=== PATIENT | male | born 1955 | race Caucasian/White ===

== ENCOUNTER 2022-07-02 20:30 | Emergency (ER) | payer MEDICARE, BC ==
--- NOTE | 2022-07-02 20:43 | ED ---
General Adult HPI - General Stated complaint: Fall, Right Leg Injury Time Seen by Provider: 07/02/22 20:36 - History of Present Illness Initial comments: Dictation was produced using [employer] dictation software. please excuse any grammatical, word or spelling errors. Chief Complaint: 67-year-old male presents emergency department after fall from ladder History of Present Illness: 67-year-old male presents to emergency department after he fell from a ladder. Patient was in the attic above his garage. He is climbing down and he missed the ladder. He states he fell to the ground. Denies any loss of consciousness. Reports hitting his right jaw and neck on something. Patient was able to stand up when he felt something wet on his right lower extremity. He lifted his leg and said there was a lot of blood. EMS was called. She was brought to the emergency department. His complaint of some mild back pain. The ROS documented in this emergency department record has been reviewed and confirmed by me. Those systems with pertinent positive or negative responses have been documented in the HPI. All other systems are other negative and/or noncontributory. PHYSICAL EXAM: General Impression: Alert and oriented x3, not in acute distress HEENT: Normocephalic atraumatic, abrasion to the right anterior neck, extra- ocular movements intact, pupils equal and reactive to light bilaterally, mucous membranes moist. Cardiovascular: Heart regular rate and rhythm Chest: Able to complete full sentences, no retractions, no tachypnea Abdomen: abdomen soft, non-tender, non-distended, no organomegaly Musculoskeletal: Pulses present and equal in all extremities, no peripheral edema Motor: no focal deficits noted Neurological: CN II-XII grossly intact, no focal motor or sensory deficits noted Skin: Avulsion laceration to the right inferior knee Psych: Normal affect and mood ED course: 67-year-old male presents to emergency department after fall from ladder. Vital signs upon arrival are within acceptable limits. Laboratory evaluation obtained. CBC, coag panel, all within acceptable limits per chest x-ray and pelvis x-ray unremarkable. Computed tomography scan of the head and C-spine obtained showing no acute processes. Computed tomography scan of the chest abdomen pelvis shows no evidence of acute traumatic injury. The laceration was repaired at bedside. This is a high risk wound. He is given a dose of Ancef. Patient will need antibiotics. Patient given follow-up with orthopedic surgery for follow-up of wound. EKG interpretation: Ventricular rate 50, sinus bradycardia,. Interval to 32, ca re is 95, QTc 444. No OH prolongation, no QTC prolongation, no ST or T-wave changes noted. Overall, this EKG is unremarkable - Related Data Previous Rx's Medication Instructions Recorded Cephalexin [Keflex] 500 mg PO QID 7 Days #28 cap 07/02/22 Allergies Allergy/AdvReac Type Severity Reaction Status Date / Time No Known Allergies Allergy Verified 07/02/22 21:11 Review of Systems ROS Statement: Those systems with pertinent positive or pertinent negative responses have been documented in the HPI. ROS Other: All systems not noted in ROS Statement are negative. Course Vital Signs 07/02/22 20:37 Temperature 98.2 F Pulse Rate 61 Respiratory 16 Rate Blood Pressure 115/84 O2 Sat by Pulse 97 Oximetry Procedures - Laceration Laceration #1 Consent Obtained: verbal consent Indication: laceration Site: lower extremity Description: avulsion Depth: simple, single layer Anesthetic Used: lidocaine 1%, with epi Anesthesia Technique: local infiltration Pre-repair: wound explored, irrigated extensively, deep structures intact Size of Sutures: 3-0 Number of Sutures: 11 Technique: simple, interrupted Patient Tolerated Procedure: well Additional Comments: right knee Medical Decision Making - Lab Data Result diagrams: 07/02/22 21:07 07/02/22 21:07 Lab Results 07/02/22 07/02/22 07/02/22 Range/Units 21:07 21:07 21:07 WBC 10.7 H (3.8-10.6) k/uL RBC 4.15 L (4.30-5.90) m/uL Hgb 14.3 (13.0-17.5) gm/dL Hct 44.1 (39.0-53.0) % MCV 106.3 H (80.0-100.0) fL MCH 34.4 (25.0-35.0) pg MCHC 32.4 (31.0-37.0) g/dL RDW 12.9 (11.5-15.5) % Plt Count 203 (150-450) k/uL MPV 9.2 Neutrophils % 59 % Lymphocytes % 26 % Monocytes % 8 % Eosinophils % 3 % Basophils % 1 % Neutrophils # 6.3 (1.3-7.7) k/uL Lymphocytes # 2.8 (1.0-4.8) k/uL Monocytes # 0.8 (0-1.0) k/uL Eosinophils # 0.3 (0-0.7) k/uL Basophils # 0.1 (0-0.2) k/uL Macrocytosis Moderate PT 10.8 (9.0-12.0) sec INR 1.0 (<1.2) APTT 23.0 (22.0-30.0) sec Sodium 139 (137-145) mmol/L Potassium 4.3 (3.5-5.1) mmol/L Chloride 101 (98-107) mmol/L Carbon Dioxide 20 L (22-30) mmol/L Anion Gap 18 mmol/L BUN 16 (9-20) mg/dL Creatinine 1.12 (0.66-1.25) mg/dL Est GFR (CKD-EPI)AfAm 79 (>60 ml/min/1.73 sqM) Est GFR (CKD-EPI)NonAf 68 (>60 ml/min/1.73 sqM) Glucose 98 (74-99) mg/dL Calcium 8.8 (8.4-10.2) mg/dL Disposition Clinical Impression: Fall, Knee laceration Disposition: HOME SELF-CARE Condition: Fair Instructions (If sedation given, give patient instructions): Fall Prevention for Older Adults (ED), Laceration (ED) Additional Instructions: Seek medical attention if he have any worsening symptoms to your knee especially with pain, redness or discharge coming from the site. Prescriptions: Cephalexin [Keflex] 500 mg PO QID 7 Days #28 cap Is patient prescribed a controlled substance at d/c from ED?: No Referrals: Freedom Costello DO [Doctor of Osteopathic Medicine] - 1-2 days Guido Flores DO [Primary Care Provider] - 1-2 days Time of Disposition: 23:12
[2022-07-02 21:11] VITALS: TEMP 98.2
[2022-07-02 21:20] LABS: Basophils # (A) 0.1 k/uL (0-0.2); Basophils % (A) 1 %; Eosinophils # (A) 0.3 k/uL (0-0.7); Eosinophils % (A) 3 %; HCT 44.1 % (39.0-53.0); HGB 14.3 gm/dL (13.0-17.5); Lymphocytes # (A) 2.8 k/uL (1.0-4.8); Lymphocytes % (A) 26 %; MCH 34.4 pg (25.0-35.0); MCHC 32.4 g/dL (31.0-37.0); MCV 106.3 fL (80.0-100.0); Macrocytosis Moderate; Mean Platelet Volume 9.2; Monocytes # (A) 0.8 k/uL (0-1.0); Monocytes % (A) 8 %; Neutrophils # (A) 6.3 k/uL (1.3-7.7); Neutrophils % (A) 59 %; Platelet Count 203 k/uL (150-450); RBC 4.15 m/uL (4.30-5.90); RDW 12.9 % (11.5-15.5); WBC 10.7 k/uL (3.8-10.6)
[2022-07-02 21:30] LABS: Calcium 8.8 mg/dL (8.4-10.2); Potassium 4.3 mmol/L (3.5-5.1)
[2022-07-02 21:31] LABS: Prothrombin Time 10.8 sec (9.0-12.0)
[2022-07-02] MEDS ORDERED: HYDROcodone/APAP 5-325MG 1 EACH TAB PO STA (21:42)
[2022-07-02] MEDS ORDERED: LIDOCAINE 1%-EPI 1:100,000 20 ML VIAL SQ STA (22:12)
--- NOTE | 2022-07-02 22:16 | XR ---
EXAMINATION TYPE: XR pelvis AP view DATE OF EXAM: 07/02/2022 COMPARISON: NONE HISTORY: Fall. Pain TECHNIQUE: Single view FINDINGS: The pelvic ring is intact. Proximal femurs are intact. There is acetabular mild spurring. S acroiliac joints are intact. IMPRESSION: No acute abnormality of the pelvis. No fracture.
--- NOTE | 2022-07-02 22:17 | XR ---
EXAMINATION TYPE: XR chest 1V portable DATE OF EXAM: 07/02/2022 COMPARISON: 12/26/2013 HISTORY: Fall. Chest pain TECHNIQUE: FINDINGS: Heart is normal. Lungs are clear of consolidation. There is no heart failure. There are no hilar masses. Bony thorax is intact. IMPRESSION: No active cardiopulmonary disease. Normal heart. No change.
--- NOTE | 2022-07-02 22:19 | XR ---
EXAMINATION TYPE: XR knee complete RT DATE OF EXAM: 07/02/2022 COMPARISON: NONE HISTORY: Fall. Pain TECHNIQUE: 3 views FINDINGS: There is no fracture nor dislocation. There is some lucency over the knee joint on the late ral view and air in the joint space is possible. There is soft tissue deformity consistent with lacer ation on the medial aspect of the knee joint in the frontal projection. IMPRESSION: Soft tissue deformity. Laceration deformity. No fracture seen.
--- NOTE | 2022-07-02 22:45 | CT ---
EXAMINATION TYPE: CT brain shukri wo con DATE OF EXAM: 07/02/2022 COMPARISON: None HISTORY: Fall CT DLP: 1621.8 mGycm Automated exposure control for dose reduction was used. Images of brain and cervical spine obtained with no contrast. There is cerebral cortical atrophy. There is no mass effect or midline shift. No sign of intracranial hemorrhage. Calvarium is intact. The cervical vertebra have normal spacing and alignment. Posterior elements are intact. There is mini mal hypertrophic facet arthropathy. There is anterior spur formation in the mid cervical spine. IMPRESSION: Mild cerebral atrophy. No acute intracranial abnormality. Spondylotic changes of the cervical spine. No fracture seen.
--- NOTE | 2022-07-02 22:56 | CT ---
EXAMINATION TYPE: CT ChestAbdPelvis w con DATE OF EXAM: 07/02/2022 COMPARISON: None HISTORY: Fall CT DLP: 1687.3 mGycm Automated exposure control for dose reduction was used. CONTRAST: Performed with IV Contrast, patient injected with 100 mL of Isovue 300. Images obtained from the thoracic inlet to the floor the pelvis with the IV contrast. The lungs are clear of infiltrate. No pleural effusion or pneumothorax. Heart size is normal. No bob cardial effusion. No mediastinal adenopathy. There are no hilar masses. There is coronary artery calc ification. Thoracic aorta is intact. No aneurysm or dissection. There is diffuse fatty replacement of the liver. Spleen is intact. No pancreatic mass. The stomach is intact. The bile duct are not dilated. Gallbladder appears normal. There is no adrenal mass. Kidneys show satisfactory contrast opacification. There is no hydronephrosi s. Delayed images show normal renal excretion. No retroperitoneal adenopathy. The bladder distends sm oothly. No inguinal hernia. No free fluid in the pelvis. No pelvic mass. There is sigmoid multiple di verticula. No diverticulitis. There is small appendix. No sign of appendicitis. There is no mesenteric edema. No ascites or free air. No sign of a bowel obstruction. No thoracic or lumbar compression fracture. There is vacuum disc at L4-5 and L5-S1. There is L5 spondylolysis with very minimal 2 mm spondylolisthesis. The sternum is intact. The bony pelvis is intact. The hip joints are intact. No evidence of rib fracture. IMPRESSION: No evidence of acute traumatic injury of the chest abdomen pelvis. Fatty infiltration of liver. Sigmoid diverticulosis. L5 spondylolysis with minimal L5-S1 spondylolist hesis.
[2022-07-02] MEDS ORDERED: CEPHALEXIN 500MG STARTER PACK 4 CAP BTL PO STA (23:15)
[2022-07-03] MEDS ORDERED: HYDROcodone/APAP 5-325MG 1 EACH TAB PO STA (00:12)
[2022-07-03 00:17] VITALS: BP 147/89; PULSE 60; RESP 18
== END 2022-07-03 00:20 | disposition home or self-care (01) ==
LOC: EC 20:30
DX: S81.011A Laceration without foreign body, right knee, initial encounter (principal); W11.XXXA Fall on and from ladder, initial encounter
CPT/HCPCS: 36415; 93005; 80048; 85025; 85610; 85730; 72170; 73562; 71045; 72125; 70450; 71260; 74177; 12001; 99284; 96365; J0690; Q9967

== ENCOUNTER 2022-07-13 12:36 | Inpatient (IN) | payer MEDICARE, OTHER ==
[2022-07-13] MEDS ORDERED: MORPHINE SULFATE 4 MG/ML SYRINGE IV STA (14:36)
[2022-07-13] MEDS ORDERED: VANCOMYCIN IV PER PHARMACY 1 EACH MISC MISCELLANE PRN (14:37)
[2022-07-13] MEDS ORDERED: SODIUM CHLORIDE 0.9% 500 ML 500 ML IV ONE (14:38)
[2022-07-13] MEDS ORDERED: KETOROLAC 15 MG/ML 1 ML VIAL IVP STA (14:38)
[2022-07-13] MEDS ORDERED: VANCOMYCIN 1,500 MG in SODIUM CHLORIDE 0.9% 250 ML IVPB STA (14:41)
--- NOTE | 2022-07-13 14:42 | ED ---
Wound/Laceration HPI - General Chief Complaint: Wound/Laceration Stated Complaint: fall, leg swelling-sent by PCP Time Seen by Provider: 07/13/22 14:30 Source: patient, RN notes reviewed, old records reviewed Mode of arrival: wheelchair - History of Present Illness Initial Comments: 67-year-old male, alert and oriented 4 presents to the emergency room with swelling to his right knee and lower extremity. Patient did sustain a fall on July 02 and was seen in the ER and had xrays done. He received 11 sutures to his right knee. He has had increased pain and swelling that started 2 days after the event. He has been able to ambulate. States he did see his primary care doctor today who recommended he come to the emergency room for admission for infection. Denies any nausea, vomiting or fevers. -: days(s) (11) Location: other (right knee) Patient Tetanus UTD: Yes - Related Data Home Medications Medication Instructions Recorded Confirmed Metoprolol Succinate [Toprol XL] 50 mg PO DAILY 07/13/22 07/13/22 Multivitamins, Thera [Multivitamin 1 tab PO DAILY 07/13/22 07/13/22 (formulary)] Naproxen Sodium [Aleve] 220 mg PO BID PRN 07/13/22 07/13/22 amLODIPine BESYLATE/BENAZEPRIL 1 cap PO DAILY 07/13/22 07/13/22 [Lotrel 10-20 mg Capsule] Allergies Allergy/AdvReac Type Severity Reaction Status Date / Time No Known Allergies Allergy Verified 07/13/22 16:27 Review of Systems ROS Statement: Those systems with pertinent positive or pertinent negative responses have been documented in the HPI. ROS Other: All systems not noted in ROS Statement are negative. Past Medical History Past Medical History: Hypertension History of Any Multi-Drug Resistant Organisms: None Reported Past Surgical History: Unable to Obtain Past Psychological History: No Psychological Hx Reported Smoking Status: Current every day smoker Past Alcohol Use History: Daily Past Drug Use History: Marijuana General Exam General appearance: alert, in no apparent distress Head exam: Present: atraumatic Respiratory exam: Absent: respiratory distress, accessory muscle use Cardiovascular Exam: Present: regular rate GI/Abdominal exam: Present: soft Right Upper Leg exam: Absent: tenderness Knee exam: Present: tenderness, swelling, laceration (Sutures in place since 07/02/2022), ecchymosis, erythema, effusion, full knee extension Lower Leg exam: Present: swelling Ankle exam: Present: full ROM, swelling. Absent: tenderness Foot/Toe exam: Present: full ROM, swelling, ecchymosis. Absent: tenderness, calcaneal tenderness, tenderness at base of 5th metatarsal Neurovascular tendon exam: Absent: abnormal cap refill, extremity cold to touch, pallor, foot drop Neurological exam: Present: alert, oriented X3 Psychiatric exam: Present: normal affect, normal mood Skin exam: Present: warm, dry. Absent: cyanosis, diaphoretic, petechiae, pallor Course Vital Signs 07/13/22 07/13/22 07/13/22 13:35 15:39 16:57 Temperature 98.2 F Pulse Rate 60 60 62 Respiratory 18 18 18 Rate Blood Pressure 117/78 128/83 146/94 O2 Sat by Pulse 98 96 97 Oximetry Medical Decision Making - Medical Decision Making Right knee erythematous and swollen. Significant swelling to the right lower extremity before CT was performed and shows no acute or subacute fracture. There is mild to moderate diffuse subcutaneous edema with a moderate sized hematoma anterior medial aspect distal femoral level and small hematoma anterior to the inferior aspect of the patella. Patient denies any other pain or discomfort. Denies any fevers. Labs show mild leukocytosis. No evidence of lactic acidosis. He did finish Keflex on July 09. He was started on vancomycin in the emergency room after blood cultures drawn. I did speak with the [facility] who recommended ortho consult. Patient is agreeable to admission. Case discussed with Dr. Brito - Lab Data Result diagrams: 07/13/22 14:56 07/13/22 14:56 Lab Results 07/13/22 07/13/22 07/13/22 Range/Units 14:56 14:56 14:56 WBC 13.4 H (3.8-10.6) k/uL RBC 4.09 L (4.30-5.90) m/uL Hgb 13.8 (13.0-17.5) gm/dL Hct 42.8 (39.0-53.0) % MCV 104.6 H (80.0-100.0) fL MCH 33.6 (25.0-35.0) pg MCHC 32.2 (31.0-37.0) g/dL RDW 12.7 (11.5-15.5) % Plt Count 270 (150-450) k/uL MPV 8.7 Neutrophils % 74 % Lymphocytes % 15 % Monocytes % 7 % Eosinophils % 2 % Basophils % 0 % Neutrophils # 9.9 H (1.3-7.7) k/uL Lymphocytes # 2.0 (1.0-4.8) k/uL Monocytes # 0.9 (0-1.0) k/uL Eosinophils # 0.3 (0-0.7) k/uL Basophils # 0.0 (0-0.2) k/uL Macrocytosis Slight Sodium 138 (137-145) mmol/L Potassium 4.4 (3.5-5.1) mmol/L Chloride 100 (98-107) mmol/L Carbon Dioxide 24 (22-30) mmol/L Anion Gap 14 mmol/L BUN 12 (9-20) mg/dL Creatinine 0.61 L (0.66-1.25) mg/dL Est GFR (CKD-EPI)AfAm >90 (>60 ml/min/1.73 sqM) Est GFR (CKD-EPI)NonAf >90 (>60 ml/min/1.73 sqM) Glucose 92 (74-99) mg/dL Plasma Lactic Acid Darian 1.9 (0.7-2.0) mmol/L Calcium 9.0 (8.4-10.2) mg/dL Total Bilirubin 0.8 (0.2-1.3) mg/dL AST 61 H (17-59) U/L ALT 29 (4-49) U/L Alkaline Phosphatase 121 (38-126) U/L Total Protein 7.4 (6.3-8.2) g/dL Albumin 4.0 (3.5-5.0) g/dL Disposition Clinical Impression: Cellulitis of right knee Disposition: ADMITTED IP TO THIS [facility] Decision Date: 07/13/22 Decision Time: 16:36
[2022-07-13] MEDS ORDERED: ONDANSETRON 4 MG/2 ML VIAL IVP STA (15:05)
[2022-07-13 15:17] LABS: Basophils % (A) 0 %; Eosinophils # (A) 0.3 k/uL (0-0.7); Eosinophils % (A) 2 %; HCT 42.8 % (39.0-53.0); HGB 13.8 gm/dL (13.0-17.5); Lymphocytes % (A) 15 %; MCH 33.6 pg (25.0-35.0); MCHC 32.2 g/dL (31.0-37.0); MCV 104.6 fL (80.0-100.0); Macrocytosis Slight; Mean Platelet Volume 8.7; Monocytes # (A) 0.9 k/uL (0-1.0); Monocytes % (A) 7 %; Neutrophils # (A) 9.9 k/uL (1.3-7.7); Neutrophils % (A) 74 %; Platelet Count 270 k/uL (150-450); RBC 4.09 m/uL (4.30-5.90); RDW 12.7 % (11.5-15.5); WBC 13.4 k/uL (3.8-10.6)
[2022-07-13 15:25] LABS: ALT 29 U/L (4-49); AST 61 U/L (17-59); African American GFR (CKD) >90 (>60 ml/min/1.73 sqM); Alkaline Phosphatase 121 U/L (38-126); Anion Gap 14 mmol/L; Blood Urea Nitrogen 12 mg/dL (9-20); Carbon Dioxide 24 mmol/L (22-30); Chloride 100 mmol/L (98-107); Glucose 92 mg/dL (74-99); Non-African American GFR(CKD) >90 (>60 ml/min/1.73 sqM); Potassium 4.4 mmol/L (3.5-5.1); Sodium 138 mmol/L (137-145); Total Bilirubin 0.8 mg/dL (0.2-1.3); Total Protein 7.4 g/dL (6.3-8.2)
--- NOTE | 2022-07-13 16:26 | CT ---
EXAMINATION TYPE: CT knee RT w con DATE OF EXAM: 07/13/2022 COMPARISON: Right knee x-ray 11 days ago HISTORY: right knee continued pain after recent fall injury CT DLP: 129.2 mGycm Automated exposure control for dose reduction was used. CONTRAST: Performed with IV Contrast, patient injected with 100 mL of Isovue 300. FINDINGS: No acute or subacute fracture in the right knee is present. [id number]-yzizvnja tricompartment joint spa ce loss is redemonstrated. Focal soft tissue fluid collection or hematoma distal femoral level anteri or medial aspect measures approximately 7.0 x 3.5 x 8.0 cm axial image 28 and coronal image 17 with m ore low dense fluid extending inferiorly. There is small focal fluid collection with focal moderate t o severe subcutaneous edema anterior to the patella extending inferiorly. There is mild to moderate d iffuse subcutaneous edema below and above the knee joint. Arterial vessels are patent without signifi cant plaque or stenosis. Hoffa's fat pad maintained. No significant suprapatellar joint effusion. IMPRESSION: No acute or subacute fracture. Mild to moderate diffuse subcutaneous edema with more foca l moderate-sized hematoma anterior medial aspect distal femoral level and smaller hematoma anterior t o the inferior aspect of the patella. Some adjacent more prominent focal edema is seen.
[2022-07-13] MEDS ORDERED: NALOXONE 0.4 MG/ML 1 ML VIAL IV PRN (16:42)
[2022-07-13] MEDS ORDERED: IBUPROFEN 400 MG TAB PO PRN (16:42)
[2022-07-13] MEDS ORDERED: ACETAMINOPHEN TAB 325 MG TAB PO PRN (16:42)
[2022-07-13] MEDS: HYDROcodone/APAP 5-325MG 1 EACH TAB PO PRN ×2 (18:21→21:52)
[2022-07-14] MEDS: VANCOMYCIN 1,500 MG in SODIUM CHLORIDE 0.9% 250 ML IVPB SCH ×3 (00:40→15:47)
[2022-07-14] MEDS: HYDROcodone/APAP 5-325MG 1 EACH TAB PO PRN ×3 (04:53→19:34)
[2022-07-14] MEDS: METOPROLOL SUCCINATE (ER) 50 MG TAB.ER.24H PO SCH (08:36)
[2022-07-14] MEDS: lisinopriL 20 MG TAB PO SCH (08:36)
--- NOTE | 2022-07-14 08:41 | P.CNOR ---
History of Present Illness - [facility] Consult date: 07/14/22 History of present illness: This patient is a 67-year-old male with past medical history of hypertension, who is a current every day cigarette smoker that presented to [facility] emergency department on 07/13/22 for complaints of right knee swelling. Patient was initially evaluated in the emergency department on 07/02/22, after he fell off a ladder and sustained a laceration to the right anterior knee. The laceration was repaired in the emergency department at that time. Patient was given a dose of Ancef and sent home on oral Keflex. Patient presented yesterday for evaluation to his primary care physician, who sent patient to the emergency department due to concern for right knee infection. Computed tomography scan of the right knee obtained yesterday reveals no acute fracture, with a moderate- sized hematoma anterior medial knee. Patient was started on IV vancomycin in the ED and admitted under the care of internal medicine, with a consult placed to orthopedic surgery for further evaluation of his right knee. Patient is examined bedside this morning with Dr. Cui. Patient states he is able to ambulate on the right knee without pain. He denies drainage from the right knee laceration. Pain in the right knee is well-controlled at this time. No additional complaints or concerns at the time of exam. He is afebrile. Past Medical History Past Medical History: Hypertension History of Any Multi-Drug Resistant Organisms: None Reported Past Surgical History: Unable to Obtain, Orthopedic Surgery Additional Past Surgical History / Comment(s): torn rotator cuff, left arm surgery, "something done to knees" Past Anesthesia/Blood Transfusion Reactions: No Reported Reaction Past Psychological History: No Psychological Hx Reported Smoking Status: Current every day smoker Past Alcohol Use History: Daily Additional Past Alcohol Use History / Comment(s): pt states he drinks 1 pint of vadka daily Past Drug Use History: None Reported, Marijuana Medications and Allergies Home Medications Medication Instructions Recorded Confirmed Type Metoprolol Succinate [Toprol XL] 50 mg PO DAILY 07/13/22 07/13/22 History Multivitamins, Thera [Multivitamin 1 tab PO DAILY 07/13/22 07/13/22 History (formulary)] Naproxen Sodium [Aleve] 220 mg PO BID PRN 07/13/22 07/13/22 History amLODIPine BESYLATE/BENAZEPRIL 1 cap PO DAILY 07/13/22 07/13/22 History [Lotrel 10-20 mg Capsule] Allergies Allergy/AdvReac Type Severity Reaction Status Date / Time No Known Allergies Allergy Verified 07/13/22 16:27 Physical Examination On examination, the patient is sitting up in bed in no apparent distress. He is alert and oriented 3. His head appears normocephalic and atraumatic. His breathing appears nonlabored. Focused examination of the right knee is conducted. On inspection of the right anterior knee, there is a ~10cm healing laceration at the anterior knee that appears to be well approximated. Nylon sutures in place. There is no active drainage from the laceration. Diffuse swelling of the knee with mild erythema. No significant warmth to palpation. There is no knee effusion appreciated. Motor and sensory function is intact of the right lower extremity. Right lower extremity warm and well-perfused. Results Computed tomography scan right knee 07/13/22: No acute fractures. Moderate-sized hematoma anterior medial knee. - Labs Labs: Abnormal Lab Results - Last 24 Hours (Table) 07/13/22 07/13/22 Range/Units 14:56 14:56 WBC 13.4 H (3.8-10.6) k/uL RBC 4.09 L (4.30-5.90) m/uL MCV 104.6 H (80.0-100.0) fL Neutrophils # 9.9 H (1.3-7.7) k/uL Creatinine 0.61 L (0.66-1.25) mg/dL AST 61 H (17-59) U/L H & H 07/13/22 Range/Units 14:56 Hgb 13.8 (13.0-17.5) gm/dL Hct 42.8 (39.0-53.0) % Result Diagrams: 07/13/22 14:56 07/13/22 14:56 Assessment and Plan Assessment: Healing laceration right anterior knee, s/p repair in ED on 07/02/22 Hematoma, right anterior knee Plan: - Clinical findings are discussed with the patient and Dr. Cui. Recommend right knee was aspiration, which was performed bedside this morning. Fluid will be sent to the lab for cell count and culture for further evaluation. - We have no plans for surgical intervention today. We would like to observe the patient for an additional 24 hours. We will re-assess patient in the AM and re- consider I&D of the the right knee at that time, pending clinical improvement and fluid analysis results. - May continue symptomatic treatment including right knee elevation, compression, pain medication as needed. - Medical management, antibiotics per admitting team. - We will re-assess patient tomorrow. He will be made NPO at midnight for possible I&D. Procedure: Verbal consent for right knee aspiration was obtained. The skin overlying the superior medial knee was prepped with ChloraPrep. An 18-gauge needle was inserted and about 5 mLs of bloody fluid was aspirated. There is no myles purulence. The needle was withdrawn and a bandage was applied. The patient tolerated this well. Fluid was sent to the lab for analysis.
[2022-07-14] MEDS: amLODIPine 10 MG TAB PO SCH (08:49)
[2022-07-14] MEDS ORDERED: amLODIPine 10 MG TAB PO SCH (09:00)
[2022-07-14] MEDS ORDERED: NON FORMULARY DRUG (Amlodipine Besylate/Benazepril [Lotrel 10-20 Mg Capsule] 1 EACH Capsul PO SCH (09:00)
[2022-07-14 11:55] LABS: Basophils % (A) 0 %; Eosinophils # (A) 0.3 k/uL (0-0.7); Eosinophils % (A) 3 %; HCT 37.8 % (39.0-53.0); HGB 11.7 gm/dL (13.0-17.5); Hypochromasia Slight; Lymphocytes # (A) 1.3 k/uL (1.0-4.8); Lymphocytes % (A) 15 %; MCH 32.8 pg (25.0-35.0); MCHC 30.9 g/dL (31.0-37.0); Macrocytosis Moderate; Mean Platelet Volume 9.6; Monocytes # (A) 0.8 k/uL (0-1.0); Monocytes % (A) 9 %; Neutrophils # (A) 6.2 k/uL (1.3-7.7); Neutrophils % (A) 70 %; Platelet Count 223 k/uL (150-450); RBC 3.57 m/uL (4.30-5.90); RDW 12.8 % (11.5-15.5)
[2022-07-14 13:27] LABS: African American GFR (CKD) >90 (>60 ml/min/1.73 sqM); Anion Gap 9 mmol/L; Blood Urea Nitrogen 12 mg/dL (9-20); Calcium 8.3 mg/dL (8.4-10.2); Carbon Dioxide 28 mmol/L (22-30); Chloride 99 mmol/L (98-107); Glucose 83 mg/dL (74-99); Non-African American GFR(CKD) >90 (>60 ml/min/1.73 sqM); Sodium 136 mmol/L (137-145)
[2022-07-15] MEDS: VANCOMYCIN 1,500 MG in SODIUM CHLORIDE 0.9% 250 ML IVPB SCH ×2 (00:05→08:14)
--- NOTE | 2022-07-15 00:13 | P.HPIM ---
History of Present Illness H&P Date: 07/14/22 Chief Complaint: Right leg swelling Patient is a 67-year-old male with known history of hypertension and osteoarthritis and currently everyday smoker and daily alcohol use presents to ER with complaints of worsening right knee swelling and pain. Patient states that he did have a fall on 07/02/2022 while climbing down a ladder and landed on his knee. Patient was seen in the ER and x-rays was done and status post sutures to his right knee.. Patient has been having increasing pain and swelling and is supposed to follow-up with orthopedic surgery as outpatient. Patient would not get appointment until 2 weeks later and was seen by primary care physician and recommended to go to ER. Denied any complaints of fever or chills. No nausea vomiting or abdominal pain or diarrhea. No cough or sputum production. CT of the knee in the ER showed no acute or subacute fracture. Mild to moderate diffuse subcutaneous edema with a more focal moderate-sized hematoma anterior me dial aspect of the distal femoral level and small hematoma anterior to the inferior aspect of the patella. Some adjacent more prominent focal edema is seen. Laboratory data showed WBC 13.4 hemoglobin 13.8 and platelets 270 Sodium 138 potassium 4.4 chloride 100 bicarb is 24 BUN 12 and creatinine 0.61 AST 61 ALT 29 and alk phos 121 Review of Systems Constitutional: Patient denies any fever or chills . no Generalized weakness. Abdomen: Patient denied any nausea or vomiting or abd. pain Cardiovascular: Patient denies any chest pain or short of breath no palpitations. Respiratory: patient denied any cough . no sputum production. No shortness of breath Neurologic: Patient denied any numbness or tingling headache. Musculoskeletal: Patient does complain of right knee swelling and pain. Skin: Negative Psychiatric: Negative Endocrine: No heat or cold intolerance. No recent weight gain. Genitourinary: No dysuria or hematuria. All other 14 point ROS negative except the above Past Medical History Past Medical History: Hypertension History of Any Multi-Drug Resistant Organisms: None Reported Past Surgical History: Unable to Obtain, Orthopedic Surgery Additional Past Surgical History / Comment(s): torn rotator cuff, left arm surgery, "something done to knees" Past Anesthesia/Blood Transfusion Reactions: No Reported Reaction Past Psychological History: No Psychological Hx Reported Smoking Status: Current every day smoker Past Alcohol Use History: Daily Additional Past Alcohol Use History / Comment(s): pt states he drinks 1 pint of vadka daily Past Drug Use History: None Reported, Marijuana Medications and Allergies Home Medications Medication Instructions Recorded Confirmed Type Metoprolol Succinate [Toprol XL] 50 mg PO DAILY 07/13/22 07/13/22 History Multivitamins, Thera [Multivitamin 1 tab PO DAILY 07/13/22 07/13/22 History (formulary)] Naproxen Sodium [Aleve] 220 mg PO BID PRN 07/13/22 07/13/22 History amLODIPine BESYLATE/BENAZEPRIL 1 cap PO DAILY 07/13/22 07/13/22 History [Lotrel 10-20 mg Capsule] Allergies Allergy/AdvReac Type Severity Reaction Status Date / Time No Known Allergies Allergy Verified 07/13/22 16:27 Physical Exam Vitals: Vital Signs Temp Pulse Pulse Resp BP BP Pulse Ox 07/14/22 08:00 98.6 F 91 14 117/71 97 07/14/22 02:00 98.6 F 49 L 16 107/69 95 07/13/22 20:00 55 L 16 07/13/22 19:15 98.5 F 55 L 16 127/77 96 07/13/22 18:12 98.1 F 68 18 133/100 95 07/13/22 16:57 62 18 146/94 97 07/13/22 15:39 60 18 128/83 96 07/13/22 13:35 98.2 F 60 18 117/78 98 Intake and Output 07/13/22 07/14/22 07/14/22 22:59 06:59 14:59 Other: Voiding Method Toilet # Voids 1 Weight 90.718 kg PHYSICAL EXAMINATION: Patient is lying in the bed comfortably, no acute distress, awake alert and oriented.. HEENT: Normocephalic. Neck is supple. Pupils reactive. Nostrils clear. Oral cavity is moist. Neck reveals no JVD, carotid bruits, or thyromegaly. CHEST EXAMINATION: Trachea is central. Symmetrical expansion. Lung madison clear to auscultation and percussion. CARDIAC: Normal S1, S2 with no gallops. No murmurs ABDOMEN: Soft. Bowel sounds present. Nontender. No organomegaly. No abdominal bruits. Extremities: reveal no edema. No clubbing or cyanosis Neurologically awake, alert, oriented x3 with well-coordinated movements. No focal deficits noted Skin: No rash or skin lesions. Psychiatric: Coperative. Nonsuicidal, Musculoskeletal: Patient does have right knee swelling and redness with healing sutures of the laceration wound. Results CBC & Chem 7: 07/14/22 10:53 07/14/22 10:53 Labs: Abnormal Lab Results - Last 24 Hours (Table) 07/13/22 07/13/22 Range/Units 14:56 14:56 WBC 13.4 H (3.8-10.6) k/uL RBC 4.09 L (4.30-5.90) m/uL MCV 104.6 H (80.0-100.0) fL Neutrophils # 9.9 H (1.3-7.7) k/uL Creatinine 0.61 L (0.66-1.25) mg/dL AST 61 H (17-59) U/L Thrombosis Risk Factor Assmnt - DVT/VTE Prophylaxis DVT/VTE Prophylaxis: Mechanical Prophylaxis ordered - Choose All That Apply Each Risk Factor Represents 2 Points: Age 61-74 years Thrombosis Risk Factor Assessment Total Risk Factor Score: 2 Thrombosis Risk Factor Assessment Level: Low Risk Assessment and Plan Assessment: Right knee swelling due to hematoma status post aspiration History of fall and right knee laceration injury with sutures on 07/02/2022 Hypertension Currently everyday smoker Daily alcohol use DVT prophylaxis with SCDs Plan: Patient will be current on pain management and empiric antibiotics in the form of vancomycin. Patient is status post hematoma aspiration of the right knee and follow-up fluid analysis and cultures. Otherwise surgery is on board and ID will be consulted. Continue to follow closely. Pain management. Time with Patient: Greater than 30
[2022-07-15] MEDS: HYDROcodone/APAP 5-325MG 1 EACH TAB PO PRN ×4 (00:15→21:26)
--- NOTE | 2022-07-15 06:51 | P.CONS ---
History of Present Illness - Reason for Consult Consult date: 07/14/22 - History of Present Illness Patient is a 67-year-old male current smoker apparently did fell off a ladder and sustained discoloration to the right anterior knee area on 07/02/2022 for the patient was seen at this hospital and patient did have a repair of the laceration patient mention he did have a bandage on it we will need to get out of after 3 days he noticed to having a swelling and redness to the right knee area but he subsequently has increased in intensity becoming more swollen and Javon and has been complaining of some dull aching pain 4 to 5-10 no radiation patient denies high-grade fever or chills requesting discoloration the patient presented to the ER on arrival to the ER the patient was afebrile patient did have white count of 13.4 with a left shift kidney function has been normal liver enzymes are normal patient did have blood cultures obtained which is currently pending patient did have a CT of the right knee no fracture mild to moderate diffuse subcutaneous edema with more focal moderate size hematoma anterior medial aspect patient has been evaluated by the orthopedic s/p aspirate of the right knee which were sent for culture patient has been started on vancomycin infectious disease was consulted for further management of antibiotic therapy Past Medical History Past Medical History: Hypertension History of Any Multi-Drug Resistant Organisms: None Reported Past Surgical History: Unable to Obtain, Orthopedic Surgery Additional Past Surgical History / Comment(s): torn rotator cuff, left arm surgery, "something done to knees" Past Anesthesia/Blood Transfusion Reactions: No Reported Reaction Past Psychological History: No Psychological Hx Reported Smoking Status: Current every day smoker Past Alcohol Use History: Daily Additional Past Alcohol Use History / Comment(s): pt states he drinks 1 pint of vadka daily Past Drug Use History: None Reported, Marijuana Medications and Allergies Home Medications Medication Instructions Recorded Confirmed Type Metoprolol Succinate [Toprol XL] 50 mg PO DAILY 07/13/22 07/13/22 History Multivitamins, Thera [Multivitamin 1 tab PO DAILY 07/13/22 07/13/22 History (formulary)] Naproxen Sodium [Aleve] 220 mg PO BID PRN 07/13/22 07/13/22 History amLODIPine BESYLATE/BENAZEPRIL 1 cap PO DAILY 07/13/22 07/13/22 History [Lotrel 10-20 mg Capsule] Allergies Allergy/AdvReac Type Severity Reaction Status Date / Time No Known Allergies Allergy Verified 07/13/22 16:27 Physical Exam Vitals: Vital Signs Temp Pulse Pulse Resp BP BP Pulse Ox 07/14/22 14:00 98.1 F 56 L 16 121/76 94 L 07/14/22 08:00 98.6 F 91 14 117/71 97 07/14/22 02:00 98.6 F 49 L 16 107/69 95 07/13/22 20:00 55 L 16 07/13/22 19:15 98.5 F 55 L 16 127/77 96 07/13/22 18:12 98.1 F 68 18 133/100 95 07/13/22 16:57 62 18 146/94 97 Intake and Output 07/14/22 07/14/22 07/14/22 06:59 14:59 22:59 Other: # Voids 1 Weight 90.718 kg Results CBC & Chem 7: 07/14/22 10:53 07/14/22 10:53 Labs: Abnormal Lab Results - Last 24 Hours (Table) 07/14/22 07/14/22 Range/Units 10:53 10:53 RBC 3.57 L (4.30-5.90) m/uL Hgb 11.7 L (13.0-17.5) gm/dL Hct 37.8 L (39.0-53.0) % MCV 106.0 H (80.0-100.0) fL MCHC 30.9 L (31.0-37.0) g/dL Sodium 136 L (137-145) mmol/L Creatinine 0.64 L (0.66-1.25) mg/dL Calcium 8.3 L (8.4-10.2) mg/dL Microbiology - Last 24 Hours (Table) 07/14/22 09:00 Body Fluid Culture - Preliminary Knee - Right Assessment and Plan Plan: 1patient presented to hospital with right knee swelling redness in this patient who did have evidence of skin necrosis around the suture line of the repair of the laceration he has almost 2 weeks ago and concern for possible secondary cellulitis versus effects of the hematoma seen on the CT as the patient is currently afebrile white count was mildly elevated subsequently normalized. 2vancomycin pharmacy to dose target trough of 15 while watching kidney function and vancomycin trough closely 3we will wait for the cultures to finalize and follow-up on clinical condition and adjust the medication further if needed. Thank you for this consultation Time with Patient: Greater than 30
[2022-07-15] MEDS ORDERED: VANCOMYCIN TROUGH DUE 1 EACH MISC MISCELLANE ONE (07:00)
[2022-07-15] MEDS: amLODIPine 10 MG TAB PO SCH (08:14)
[2022-07-15] MEDS: lisinopriL 20 MG TAB PO SCH (08:14)
[2022-07-15] MEDS: METOPROLOL SUCCINATE (ER) 50 MG TAB.ER.24H PO SCH (08:14)
--- NOTE | 2022-07-15 09:03 | P.PN ---
Subjective Progress Note Date: 07/15/22 The patient is doing better this morning. He is minimal to no pain in his knee. He is able to walk without difficulty. He says he has no concern for infection and thinks he just has a bad bruise Objective - Vital Signs Vital signs: Vital Signs Temp 98.9 F 07/15/22 07:49 Pulse 49 L 07/15/22 07:49 Resp 18 07/15/22 07:49 BP 133/81 07/15/22 07:49 Pulse Ox 96 07/15/22 07:49 FiO2 Intake & Output 07/14/22 07/15/22 07/15/22 18:59 06:59 18:59 Other: Voiding Method Toilet # Voids 5 3 # Bowel Movements 1 - Exam The patient is resting comfortably in his bed. A focused exam of the right knee was conducted. On inspection there is diffuse swelling and a healing wound over the anterior aspect of the knee with a dry eschar. There is diffuse ecchymosis throughout the knee but no myles erythema or warmth. He has minimal tenderness to palpation over the knee. He has no pain with passive range of motion. He was able to get up and walk. - Labs CBC & Chem 7: 07/14/22 10:53 07/14/22 10:53 Labs: Abnormal Lab Results - Last 24 Hours (Table) 07/14/22 07/14/22 Range/Units 10:53 10:53 RBC 3.57 L (4.30-5.90) m/uL Hgb 11.7 L (13.0-17.5) gm/dL Hct 37.8 L (39.0-53.0) % MCV 106.0 H (80.0-100.0) fL MCHC 30.9 L (31.0-37.0) g/dL Sodium 136 L (137-145) mmol/L Creatinine 0.64 L (0.66-1.25) mg/dL Calcium 8.3 L (8.4-10.2) mg/dL Microbiology - Last 24 Hours (Table) 07/14/22 09:00 Gram Stain - Preliminary Knee - Right Body Fluid Culture - Preliminary 07/13/22 14:30 Blood Culture - Preliminary Blood No Growth after 24 hours 07/13/22 14:45 Blood Culture - Preliminary Blood No Growth after 24 hours Assessment and Plan Assessment: Traumatic laceration right knee with diffuse ecchymosis and aseptic hematoma Plan: The patient appears to have traumatic laceration and hematoma that is resolving. I have low suspicion for deep infection requiring surgical intervention as the patient has no pain with passive range of motion of the knee and can walk. I've no plan for surgical debridement. Would recommend local wound care and modalities to the knee along with physical therapy.
[2022-07-15 11:10] LABS: African American GFR (CKD) 110.7 (60.0-200.0); Non-African American GFR(CKD) 95.5 (60.0-200.0)
[2022-07-16] MEDS: HYDROcodone/APAP 5-325MG 1 EACH TAB PO PRN ×2 (02:33→07:49)
[2022-07-16] MEDS ORDERED: VANCOMYCIN 1,500 MG in SODIUM CHLORIDE 0.9% 250 ML IVPB SCH (06:00)
[2022-07-16] MEDS: amLODIPine 10 MG TAB PO SCH (07:49)
[2022-07-16] MEDS: METOPROLOL SUCCINATE (ER) 50 MG TAB.ER.24H PO SCH (07:50)
[2022-07-16] MEDS: lisinopriL 20 MG TAB PO SCH (07:50)
[2022-07-16 08:35] VITALS: BP 134/81; PULSE 52; RESP 17; TEMP 98.9
[2022-07-16 10:33] LABS: HCT 41.1 % (39.6-50.0); HGB 13.3 g/dL (13.0-17.0); MCH 33.5 pg (27.0-32.0); MCHC 32.4 g/dL (32.0-37.0); MCV 103.5 fL (80.0-97.0); Mean Platelet Volume 11.6 fL (9.5-12.2); NRBC Per 100 WBC 0 /100 WBCS (0.0-0.0); Platelet Count 238 X 10*3/uL (140-440); RBC 3.97 X 10*6/uL (4.40-5.60); RDW 13.4 % (11.5-14.5); WBC 10.62 X 10*3/uL (4.50-10.00)
[2022-07-16 10:41] LABS: Anion Gap 8.5 mmol/L (10.00-18.00); BUN/Creat Ratio 15.71 Ratio (12.00-20.00); Calcium 8.5 mg/dL (8.7-10.3); Carbon Dioxide 25.5 mmol/L (20.0-27.5); Non-African American GFR(CKD) 98.3 (60.0-200.0)
[2022-07-16 12:49] LABS: Basophils # (A) 0.05 X 10*3/uL (0.00-0.10); Basophils % (A) 0.5 %; Eosinophils # (A) 0.29 X 10*3/uL (0.04-0.35); Eosinophils % (A) 2.7 %; Immature Grans, Automated 0.3 %; Lymphocytes # (A) 2.09 X 10*3/uL (0.90-5.00); Lymphocytes % (A) 19.7 %; Macrocytosis (M) 2+; Monocytes # (A) 1.63 X 10*3/uL (0.20-1.00); Monocytes % (A) 15.3 %; Neutrophils # (A) 6.53 X 10*3/uL (1.80-7.70); Neutrophils % (A) 61.5 %
--- NOTE | 2022-07-24 17:40 | CDI ---
Documentation Clarification Form Date: 07/24/2022 02:33:00 PM From: Keisha Rodriguez Admit Date: 07/14/2022 12:54:00 PM Patient Name: Mario Cuba Visit Number: [id number] Discharge Date: 07/16/2022 12:34:00 PM ATTENTION: The Clinical Documentation Specialists (CDI) and [facility] Coding Staff appreciate your assistance in clarifying documentation. Please respond to the clarification below the line at the bottom and electronically sign. The CDI & [facility] Coding staff will review the response and follow-up if needed. Please note: Queries are made part of the Legal Health Record. If you have any questions, please contact the author of this message via ITS. Dr. Kenji Cook "Cellulitis of the right knee" is documented in the ED note 07/13/22, and "concern for cellulitis versus effects of the hematoma" is documented in the Ortho Consult note 07/14/22. Additional clarification regarding cellulitis is requested. History/risk factors: right knee swelling, recent fall from a ladder where sustained a laceration to the right anterior knee, this was repaired and is healing. new possible right knee infection, hematoma right anterior knee Clinical Indicators: healing laceration, right knee swelling, redness, diffuse ecchymosis, aseptic hematoma, there was evidence of skin necrosis around the suture line from the laceration repair. Treatment: treated with vanco, and right knee aspiration Please clarify if cellulitis was present or ruled out if known: [ x ] Cellulitis R knee [ ] Cellulitis R knee ruled out [ ] Other, please specify: [ ] Unable to determine MTDD
--- NOTE | 2022-07-26 12:04 | P.PN ---
Subjective Progress Note Date: 07/15/22 Patient is a 67-year-old male with known history of hypertension and osteoarthritis and currently everyday smoker and daily alcohol use presents to ER with complaints of worsening right knee swelling and pain. Patient states that he did have a fall on 07/02/2022 while climbing down a ladder and landed on his knee. Patient was seen in the ER and x-rays was done and status post sutures to his right knee.. Patient has been having increasing pain and swelling and is supposed to follow-up with orthopedic surgery as outpatient. Patient would not get appointment until 2 weeks later and was seen by primary care physician and recommended to go to ER. Denied any complaints of fever or chills. No nausea vomiting or abdominal pain or diarrhea. No cough or sputum production. CT of the knee in the ER showed no acute or subacute fracture. Mild to moderate diffuse subcutaneous edema with a more focal moderate-sized hematoma anterior medial aspect of the distal femoral level and small hematoma anterior to the inferior aspect of the patella. Some adjacent more prominent focal edema is seen. Laboratory data showed WBC 13.4 hemoglobin 13.8 and platelets 270 Sodium 138 potassium 4.4 chloride 100 bicarb is 24 BUN 12 and creatinine 0.61 AST 61 ALT 29 and alk phos 121 07/15/2022 Patient is status post aspiration of the fluid/hematoma. Did improve clinically and improved pain in the right knee and swelling is also improving. Fluid culture is pending. Patient has been afebrile. Orthopedic surgery has seen the patient and low concern for infection. Currently on antibiotics and awaiting culture report. Current medications reviewed. Objective - Vital Signs Vital signs: Vital Signs Temp 98.9 F 07/15/22 07:49 Pulse 49 L 07/15/22 07:49 Resp 18 07/15/22 07:49 BP 133/81 07/15/22 07:49 Pulse Ox 96 07/15/22 07:49 FiO2 Intake & Output 07/14/22 07/15/22 07/15/22 18:59 06:59 18:59 Other: Voiding Method Toilet # Voids 5 3 # Bowel Movements 1 - Exam PHYSICAL EXAMINATION: Patient is lying in the bed comfortably, no acute distress, awake alert and oriented.. HEENT: Normocephalic. Neck is supple. Pupils reactive. Nostrils clear. Oral cavity is moist. Neck reveals no JVD, carotid bruits, or thyromegaly. CHEST EXAMINATION: Trachea is central. Symmetrical expansion. Lung madison clear to auscultation and percussion. CARDIAC: Normal S1, S2 with no gallops. No murmurs ABDOMEN: Soft. Bowel sounds present. Nontender. No organomegaly. No abdominal bruits. Extremities: reveal no edema. No clubbing or cyanosis Neurologically awake, alert, oriented x3 with well-coordinated movements. No focal deficits noted Skin: No rash or skin lesions. Psychiatric: Coperative. Nonsuicidal, Musculoskeletal: Patient does have right knee swelling and redness with healing sutures of the laceration wound. - Labs CBC & Chem 7: 07/16/22 07:06 07/16/22 07:06 Labs: Abnormal Lab Results - Last 24 Hours (Table) 07/15/22 Range/Units 06:15 Vancomycin Trough 31.0 H* ug/mL Microbiology - Last 24 Hours (Table) 07/14/22 09:00 Gram Stain - Preliminary Knee - Right Body Fluid Culture - Preliminary 07/13/22 14:30 Blood Culture - Preliminary Blood No Growth after 24 hours 07/13/22 14:45 Blood Culture - Preliminary Blood No Growth after 24 hours Assessment and Plan Assessment: Right knee swelling due to hematoma status post aspiration History of fall and right knee laceration injury with sutures on 07/02/2022 Hypertension Currently everyday smoker Daily alcohol use DVT prophylaxis with SCDs Plan: Patient will be current on pain management and empiric antibiotics in the form of vancomycin. Patient is status post hematoma aspiration of the right knee and follow-up fluid analysis and cultures. Otherwise surgery is on board and ID has seen the pt.. Continue to follow closely. Pain management.
--- NOTE | 2022-07-26 12:08 | P.DS ---
Providers Date of admission: 07/14/22 12:54 Expected date of discharge: 07/16/22 Attending physician: Kenji Cook Consults: 07/13/22 16:49 Consult Physician Routine Consulting Provider: Francisco J Cui Consult Reason/Comments: right knee cellulitis s/p trauma Do you want consulting provider notified?: Yes, Notify in am 07/14/22 13:24 Consult Physician Routine Consulting Provider: Pj Ramos Consult Reason/Comments: infected right knee Do you want consulting provider notified?: Yes [facility]: Discharge diagnosis Right knee swelling due to hematoma status post aspiration History of fall and right knee laceration injury with sutures on 07/02/2022 Hypertension Currently everyday smoker Daily alcohol use DVT prophylaxis with SCD Hospital course Patient is a 67-year-old male with known history of hypertension and osteoarthritis and currently everyday smoker and daily alcohol use presents to ER with complaints of worsening right knee swelling and pain. Patient states that he did have a fall on 07/02/2022 while climbing down a ladder and landed on his knee. Patient was seen in the ER and x-rays was done and status post sutures to his right knee.. Patient has been having increasing pain and swelling and is supposed to follow-up with orthopedic surgery as outpatient. Patient would not get appointment until 2 weeks later and was seen by primary care physician and recommended to go to ER. Denied any complaints of fever or chills. No nausea vomiting or abdominal pain or diarrhea. No cough or sputum production. CT of the knee in the ER showed no acute or subacute fracture. Mild to moderate diffuse subcutaneous edema with a more focal moderate-sized hematoma anterior medial aspect of the distal femoral level and small hematoma anterior to the inferior aspect of the patella. Some adjacent more prominent focal edema is seen. Laboratory data showed WBC 13.4 hemoglobin 13.8 and platelets 270 Sodium 138 potassium 4.4 chloride 100 bicarb is 24 BUN 12 and creatinine 0.61 AST 61 ALT 29 and alk phos 121 07/15/2022 Patient is status post aspiration of the fluid/hematoma. Did improve clinically and improved pain in the right knee and swelling is also improving. Fluid culture is pending. Patient has been afebrile. Orthopedic surgery has seen the patient and low concern for infection. Currently on antibiotics and awaiting culture report. 07/16/2022 patient is lying in the bed. Awake alert and oriented x3. No complaints of chest pain or shortness with. Right knee swelling is almost r esolved. Redness is also improving. Wound is healing well. Continued on IV antibiotics and changed to doxycycline as per ID recommendations. Patient has been afebrile overnight. Cultures showed no growth so far. Blood cultures negative. Patient was recommended to follow-up with primary care physician in 1 to 2 days and also final culture report. Patient is able to be discharged home today. Laboratory data showed WBC count improved to 10.6 hemoglobin 13.3 and platelets 238 BUN 8.5 and creatinine 0.7 and calcium 8.5. Cleared from orthopedic surgery and ID standpoint. PHYSICAL EXAMINATION: Patient is lying in the bed comfortably, no acute distress, awake alert and oriented.. HEENT: Normocephalic. Neck is supple. Pupils reactive. Nostrils clear. Oral cavity is moist. Neck reveals no JVD, carotid bruits, or thyromegaly. CHEST EXAMINATION: Trachea is central. Symmetrical expansion. Lung mad[place] clear to auscultation and percussion. CARDIAC: Normal S1, S2 with no gallops. No murmurs ABDOMEN: Soft. Bowel sounds present. Nontender. No organomegaly. No abdominal bruits. Extremities: reveal no edema. No clubbing or cyanosis Neurologically awake, alert, oriented x3 with well-coordinated movements. No focal deficits noted Skin: No rash or skin lesions. Psychiatric: Coperative. Nonsuicidal, Musculoskeletal: Patient does have right knee swelling and redness with healing sutures of the laceration wound. Discharge vitals reviewed. Patient Condition at Discharge: Stable Plan - Discharge Summary Discharge Rx Participant: No New Discharge Prescriptions: New Doxycycline Hyclate 100 mg PO BID 10 Days #20 tab Continue Multivitamins, Thera [Multivitamin (formulary)] 1 tab PO DAILY Naproxen Sodium [Aleve] 220 mg PO BID PRN PRN Reason: Pain Metoprolol Succinate [Toprol XL] 50 mg PO DAILY amLODIPine BESYLATE/BENAZEPRIL [Lotrel 10-20 mg Capsule] 1 cap PO DAILY Discharge Medication List Metoprolol Succinate [Toprol XL] 50 mg PO DAILY 07/13/22 [History] Multivitamins, Thera [Multivitamin (formulary)] 1 tab PO DAILY 07/13/22 [History] Naproxen Sodium [Aleve] 220 mg PO BID PRN 07/13/22 [History] amLODIPine BESYLATE/BENAZEPRIL [Lotrel 10-20 mg Capsule] 1 cap PO DAILY 07/13/22 [History] Doxycycline Hyclate 100 mg PO BID 10 Days #20 tab 07/16/22 [Rx] Follow up Appointment(s)/Referral(s): Guido Flores DO [Primary Care Provider] - 1-2 days Patient Instructions/Handouts: Cellulitis (ED) Discharge Disposition: HOME SELF-CARE
== END 2022-07-16 12:34 | disposition home or self-care (01) | DRG 605 ==
LOC: EC 12:36 → 4SSUR 16:44 → OBSVTOIN 07-14 12:54
PROVIDERS: ADMIT Internal Medicine; ATTEND Internal Medicine
PROC: 0S9C3ZX Drainage of Right Knee Joint, Percutaneous Approach, Diagnostic (ICD-10-PCS; principal; 2022-07-14)
DX: S80.01XA Contusion of right knee, initial encounter (principal); L03.115 Cellulitis of right lower limb; I10 Essential (primary) hypertension; W11.XXXA Fall on and from ladder, initial encounter; S81.011D Laceration without foreign body, right knee, subsequent encounter; W11.XXXD Fall on and from ladder, subsequent encounter; M19.90 Unspecified osteoarthritis, unspecified site; F17.210 Nicotine dependence, cigarettes, uncomplicated; Z79.899 Other long term (current) drug therapy
CPT/HCPCS: 36415; 80048; 80053; 80202; 82565; 83605; 85025; 87040; 87070; 87077; 87186; 87205; 96365; 96366; 96375; 99285

== ENCOUNTER 2022-08-12 11:13 | Inpatient (IN) | payer MEDICARE, OTHER ==
--- NOTE | 2022-08-12 11:48 | ED ---
Skin/Abscess/FB HPI - General Chief complaint: Skin/Abscess/Foreign Body Stated complaint: possible knee infection Time Seen by Provider: 08/12/22 11:19 Source: patient, family, RN notes reviewed Mode of arrival: ambulatory Limitations: no limitations - History of Present Illness Initial comments: This is a 67-year-old male who presents to the emergency department for a right knee infection. He was admitted here from 07/14 - 07/16 for an infection in the same knee. This had been doing better and he was discharged on a course of oral doxycycline after being treated with IV antibiotics. States that after finishing the antibiotics, the knee got progressively worse. He does note that he has been pouring hydrogen peroxide into the wound each day. Every time he bends his knee, he feels like it breaks back open. He has noticed purulent discharge as well as a foul smelling odor coming from the wound. Denies any fevers or chills. Also reports significant swelling, tenderness, and heat surrounding the wound. Denies any fevers, chills, sore throat, cough, dyspnea, chest pain, palpitations, abdominal pain, nausea, vomiting, diarrhea, back pain, or headaches. MD complaint: other (wound) Tetanus Up to Date: yes Location: [facility] - Related Data Home Medications Medication Instructions Recorded Confirmed Metoprolol Succinate [Toprol XL] 50 mg PO DAILY 07/13/22 08/12/22 Multivitamins, Thera [Multivitamin 1 tab PO DAILY 07/13/22 08/12/22 (formulary)] Naproxen Sodium [Aleve] 220 mg PO BID PRN 07/13/22 08/12/22 amLODIPine BESYLATE/BENAZEPRIL 1 cap PO DAILY 07/13/22 08/12/22 [Lotrel 10-20 mg Capsule] Allergies Allergy/AdvReac Type Severity Reaction Status Date / Time No Known Allergies Allergy Verified 08/12/22 13:17 Review of Systems ROS Statement: Those systems with pertinent positive or pertinent negative responses have been documented in the HPI. ROS Other: All systems not noted in ROS Statement are negative. Past Medical History Past Medical History: Hypertension History of Any Multi-Drug Resistant Organisms: None Reported Past Surgical History: Unable to Obtain, Orthopedic Surgery Additional Past Surgical History / Comment(s): torn rotator cuff, left arm surgery, "something done to knees" Past Anesthesia/Blood Transfusion Reactions: No Reported Reaction Past Psychological History: No Psychological Hx Reported Smoking Status: Current every day smoker Past Alcohol Use History: Daily Past Drug Use History: None Reported, Marijuana General Exam Limitations: no limitations General appearance: alert, in no apparent distress Head exam: Present: atraumatic, normocephalic, normal inspection Respiratory exam: Present: normal lung sounds bilaterally. Absent: respiratory distress, wheezes, rales, rhonchi, stridor Cardiovascular Exam: Present: regular rate, normal rhythm, normal heart sounds. Absent: systolic murmur, diastolic murmur, rubs, gallop, clicks Extremities exam: Present: other (2 large wounds on the right patella with active purulent drainage and eschar formation. There is overlying swelling, erythema, tenderness, and heat.) Neurological exam: Present: alert, oriented X3, CN II-XII intact Psychiatric exam: Present: normal affect, normal mood Course Vital Signs 08/12/22 08/12/22 11:29 14:00 Temperature 98.7 F Pulse Rate 78 74 Respiratory 16 18 Rate Blood Pressure 148/82 O2 Sat by Pulse 96 98 Oximetry Medical Decision Making - Medical Decision Making This is a 67-year-old male who presents to the emergency department for a right knee infection. Lab work with wound cultures, blood cultures, and inflammatory markers was obtained. X-ray of the right knee was also obtained to evaluate infection depth. This revealed no evidence of bony erosion or subcutaneous gas to suggest an osteonecrosis or necrotizing fasciitis. He does continue to have moderate to severe subcutaneous edema that is relatively unchanged from prior. Lab work reveals no leukocytosis. CRP is mildly elevated and lab work was nonactionable. ESR was unable to be run by the lab, this will be reordered with results pending. He was started on IV cefepime and vancomycin after obtaining the wound and blood cultures. Will admit patient to medicine with infectious disease consult for further evaluation and treatment of this infection. This case was discussed in detail with the attending ED physician. Presentation, findings, and treatment plan discussed in detail as well. - Lab Data Result diagrams: 08/12/22 11:51 08/12/22 11:51 Lab Results 08/12/22 08/12/22 Range/Units 11:51 11:51 WBC 9.7 (3.8-10.6) k/uL RBC 3.97 L (4.30-5.90) m/uL Hgb 13.5 (13.0-17.5) gm/dL Hct 41.0 (39.0-53.0) % MCV 103.3 H (80.0-100.0) fL MCH 34.1 (25.0-35.0) pg MCHC 33.0 (31.0-37.0) g/dL RDW 13.2 (11.5-15.5) % Plt Count 216 (150-450) k/uL MPV 9.5 Neutrophils % 64 % Lymphocytes % 22 % Monocytes % 8 % Eosinophils % 2 % Basophils % 0 % Neutrophils # 6.2 (1.3-7.7) k/uL Lymphocytes # 2.1 (1.0-4.8) k/uL Monocytes # 0.8 (0-1.0) k/uL Eosinophils # 0.2 (0-0.7) k/uL Basophils # 0.0 (0-0.2) k/uL Macrocytosis Slight ESR Cancelled Sodium 141 (137-145) mmol/L Potassium 4.0 (3.5-5.1) mmol/L Chloride 104 (98-107) mmol/L Carbon Dioxide 24 (22-30) mmol/L Anion Gap 13 mmol/L BUN 11 (9-20) mg/dL Creatinine 0.69 (0.66-1.25) mg/dL Est GFR (CKD-EPI)AfAm >90 (>60 ml/min/1.73 sqM) Est GFR (CKD-EPI)NonAf >90 (>60 ml/min/1.73 sqM) Glucose 102 H (74-99) mg/dL Calcium 8.6 (8.4-10.2) mg/dL Total Bilirubin 0.5 (0.2-1.3) mg/dL AST 49 (17-59) U/L ALT 25 (4-49) U/L Alkaline Phosphatase 120 (38-126) U/L C-Reactive Protein 1.0 H (<1.0) mg/dL Total Protein 7.4 (6.3-8.2) g/dL Albumin 4.0 (3.5-5.0) g/dL - Radiology Data Radiology results: report reviewed, image reviewed Disposition Clinical Impression: Cellulitis Disposition: ADMITTED IP TO THIS HOSP
[2022-08-12 12:10] LABS: Basophils % (A) 0 %; Eosinophils # (A) 0.2 k/uL (0-0.7); Eosinophils % (A) 2 %; HGB 13.5 gm/dL (13.0-17.5); Lymphocytes # (A) 2.1 k/uL (1.0-4.8); Lymphocytes % (A) 22 %; MCH 34.1 pg (25.0-35.0); MCV 103.3 fL (80.0-100.0); Macrocytosis Slight; Mean Platelet Volume 9.5; Monocytes # (A) 0.8 k/uL (0-1.0); Monocytes % (A) 8 %; Neutrophils # (A) 6.2 k/uL (1.3-7.7); Neutrophils % (A) 64 %; Platelet Count 216 k/uL (150-450); RBC 3.97 m/uL (4.30-5.90); RDW 13.2 % (11.5-15.5); WBC 9.7 k/uL (3.8-10.6)
[2022-08-12 12:26] LABS: ALT 25 U/L (4-49); AST 49 U/L (17-59); African American GFR (CKD) >90 (>60 ml/min/1.73 sqM); Alkaline Phosphatase 120 U/L (38-126); Anion Gap 13 mmol/L; Blood Urea Nitrogen 11 mg/dL (9-20); Calcium 8.6 mg/dL (8.4-10.2); Carbon Dioxide 24 mmol/L (22-30); Chloride 104 mmol/L (98-107); Glucose 102 mg/dL (74-99); Non-African American GFR(CKD) >90 (>60 ml/min/1.73 sqM); Sodium 141 mmol/L (137-145); Total Bilirubin 0.5 mg/dL (0.2-1.3); Total Protein 7.4 g/dL (6.3-8.2)
[2022-08-12] MEDS ORDERED: VANCOMYCIN IV PER PHARMACY 1 EACH MISC MISCELLANE PRN (12:26)
--- NOTE | 2022-08-12 12:26 | XR ---
EXAMINATION TYPE: XR knee complete RT DATE OF EXAM: 08/12/2022 CLINICAL HISTORY: Pain and swelling rule out infection. TECHNIQUE: Three views of the right knee are obtained. COMPARISON: CT right knee July 13, 2022 FINDINGS: There is no acute fracture/dislocation evident in right knee. Moderate narrowing medial ti biofemoral compartment redemonstrated. Mild to moderate narrowing patellofemoral compartment redemon strated. Moderate diffuse subcutaneous edema again seen. More focal fluid medial aspect subcutaneous tissue greater above the knee joint is redemonstrated unchanged from prior. Moderate to severe subcut aneous edema prepatellar space and superficial infrapatellar space again seen. No bony destruction is evident. IMPRESSION: As above. No significant change from recent CT.
[2022-08-12] MEDS ORDERED: VANCOMYCIN 1,350 MG in SODIUM CHLORIDE 0.9% 250 ML IVPB SCH (12:30)
[2022-08-12] MEDS: CEFEPIME 2 GM in SODIUM CHLORIDE 0.9% 100 ML IVPB SCH (12:50)
[2022-08-12] MEDS: VANCOMYCIN 1,500 MG in SODIUM CHLORIDE 0.9% 500 ML 500 ML IVPB ONE ×2 (13:53→15:22)
[2022-08-12] MEDS ORDERED: ONDANSETRON 4 MG/2 ML VIAL IVP PRN (14:45)
[2022-08-12] MEDS ORDERED: ACETAMINOPHEN TAB 325 MG TAB PO PRN (14:45)
[2022-08-12] MEDS ORDERED: NALOXONE 0.4 MG/ML 1 ML VIAL IV PRN (14:45)
[2022-08-12] MEDS ORDERED: IBUPROFEN 600 MG TAB PO PRN (14:50)
[2022-08-12] MEDS: HYDROcodone/APAP 5-325MG 1 EACH TAB PO PRN (20:10)
[2022-08-13] MEDS: CEFEPIME 2 GM in SODIUM CHLORIDE 0.9% 100 ML IVPB SCH ×2 (01:17→13:13)
[2022-08-13] MEDS: HYDROcodone/APAP 5-325MG 1 EACH TAB PO PRN ×5 (01:27→21:38)
--- NOTE | 2022-08-13 02:01 | P.HPIM ---
History of Present Illness H&P Date: 08/12/22 Chief Complaint: Right knee wound infection Patient is a 67-year-old male with a known history of hypertension and recent history of laceration injury status post fall on 07/02/2022 while climbing down a ladder and landed on his knees. Patient presented to ER with complaints of worsening swelling and pain and nonhealing wound which is worsening for the past 2-3 days. Patient was admitted to the hospital from 07/14/2022 to 07/16/2022 and was continued on IV antibiotics. Cultures have been negative at the time and patient was sent home with oral antibiotic course. Patient states that his wound did improve until a few days ago started becoming more red and pain and nonhealing. Was also having minimal purulent drainage noted. Patient has been afebrile. No nausea vomiting or abdominal diarrhea. No cough or sputum production. No chest pain or shortness of breath. Patient presented to ER for further evaluation. Patient did not get a chance to follow with ID clinic after discharge. X-ray of the knee showed no acute fracture or dislocation. Moderate diffuse subcutaneous edema noted. More focal fluid medial aspect subcutaneous tissue greater than about the knee joint is redemonstrated. Unchanged from prior. Sodium 141 potassium 4.0 chloride 104 bicarb is 24 BUN 11 and creatinine 0.69 Progress to a level is 0.11 and CRP 1.0. Liver enzymes are not elevated. Review of Systems Constitutional: Patient denies any fever or chills . No generalized weakness or weight loss. Abdomen: Patient denied nausea vomiting and diarrhea and abdominal pain. Cardiovascular: Patient denies any chest pain or short of breath no palpitations. Respiratory: patient denied any cough is from production. No shortness of ginna ath Neurologic: Patient denied any numbness or tingling headache. Musculoskeletal: Patient denies any complaints of joint swelling or deformity. Right knee wound infection. Skin: Negative Psychiatric: Negative Endocrine: No heat or cold intolerance. No recent weight gain. Genitourinary: No dysuria or hematuria. All other 14 point ROS negative except the above Past Medical History Past Medical History: Hypertension History of Any Multi-Drug Resistant Organisms: None Reported Past Surgical History: Unable to Obtain, Orthopedic Surgery, Tonsillectomy Additional Past Surgical History / Comment(s): torn rotator cuff, left arm surgery, "something done to knees" Past Anesthesia/Blood Transfusion Reactions: No Reported Reaction Past Psychological History: No Psychological Hx Reported Smoking Status: Current every day smoker Past Alcohol Use History: Daily Additional Past Alcohol Use History / Comment(s): pt states he drinks 1 pint of vodka daily Past Drug Use History: None Reported, Marijuana Medications and Allergies Home Medications Medication Instructions Recorded Confirmed Type Metoprolol Succinate [Toprol XL] 50 mg PO DAILY 07/13/22 08/12/22 History Multivitamins, Thera [Multivitamin 1 tab PO DAILY 07/13/22 08/12/22 History (formulary)] Naproxen Sodium [Aleve] 220 mg PO BID PRN 07/13/22 08/12/22 History amLODIPine BESYLATE/BENAZEPRIL 1 cap PO DAILY 07/13/22 08/12/22 History [Lotrel 10-20 mg Capsule] Allergies Allergy/AdvReac Type Severity Reaction Status Date / Time No Known Allergies Allergy Verified 08/12/22 13:17 Physical Exam Vitals: Vital Signs Temp Pulse Resp BP BP Pulse Ox 08/12/22 19:54 98.2 F 16 151/91 96 08/12/22 18:54 75 18 134/87 98 08/12/22 16:21 64 16 144/100 98 08/12/22 14:00 74 18 148/82 98 08/12/22 11:29 98.7 F 78 16 96 Intake and Output 08/12/22 08/12/22 08/13/22 14:59 22:59 06:59 Other: Weight 90.718 kg PHYSICAL EXAMINATION: Patient is lying in the bed comfortably, no acute distress, awake alert and oriented.. HEENT: Normocephalic. Neck is supple. Pupils reactive. Nostrils clear. Oral cavity is moist. Neck reveals no JVD, carotid bruits, or thyromegaly. CHEST EXAMINATION: Trachea is central. Symmetrical expansion. Lung [place] clear to auscultation and percussion. CARDIAC: Normal S1, S2 with no gallops. No murmurs ABDOMEN: Soft. Bowel sounds normal. No organomegaly. No abdominal bruits. Extremities: reveal no edema. No clubbing or cyanosis Neurologically awake, alert, oriented x3 with well-coordinated movements. No focal deficits noted Skin: Patient does have lacerated wound over the right knee with dark eschar and minimal purulent discharge. Surrounding redness and warmth. Psychiatric: Coperative. Nonsuicidal Musculoskeletal: No joint swelling or deformity. Normal range of motion. Results CBC & Chem 7: 08/13/22 05:31 08/13/22 05:31 Labs: Abnormal Lab Results - Last 24 Hours (Table) 08/12/22 08/12/22 08/12/22 Range/Units 11:51 11:51 11:51 RBC 3.97 L (4.30-5.90) m/uL MCV 103.3 H (80.0-100.0) fL Glucose 102 H (74-99) mg/dL C-Reactive Protein 1.0 H (<1.0) mg/dL Procalcitonin 0.11 H (0.02-0.09) ng/mL Microbiology - Last 24 Hours (Table) 08/12/22 12:10 Gram Stain - Preliminary Knee - Right Wound Culture - Preliminary 08/12/22 12:10 Anaerobic Culture - Preliminary Knee - Right Thrombosis Risk Factor Assmnt - DVT/VTE Prophylaxis DVT/VTE Prophylaxis: Pharmacologic Prophylaxis ordered Assessment and Plan Assessment: Nonhealing right lower extremity Llacerated wound infection over the knee with surrounding cellulitis. History of fall from ladder on 07/02/2022. Patient was admitted to hospital from 07/14/2022 to 07/16/2022 Hypertension DVT prophylaxis Plan: Patient will be carried on broad-spectrum antibiotics. Continue with vancomycin and cefepime and follow up wound cultures. ID consult and also general surgery will be consulted for possible debridement. Current with home medications and pain management and follow up closely. Time with Patient: Greater than 30
[2022-08-13] MEDS: VANCOMYCIN 1,500 MG in SODIUM CHLORIDE 0.9% 500 ML 500 ML IVPB SCH ×2 (03:06→15:32)
[2022-08-13 08:43] LABS: Basophils # (A) 0.02 X 10*3/uL (0.00-0.10); Basophils % (A) 0.2 %; Eosinophils # (A) 0.45 X 10*3/uL (0.04-0.35); Eosinophils % (A) 4.7 %; HCT 35.8 % (39.6-50.0); HGB 11.9 g/dL (13.0-17.0); Immature Grans, Automated 0.4 %; Lymphocytes # (A) 1.48 X 10*3/uL (0.90-5.00); Lymphocytes % (A) 15.6 %; MCH 33.6 pg (27.0-32.0); MCHC 33.2 g/dL (32.0-37.0); MCV 101.1 fL (80.0-97.0); Mean Platelet Volume 11.2 fL (9.5-12.2); Monocytes % (A) 12.7 %; NRBC Per 100 WBC 0 /100 WBCS (0.0-0.0); Neutrophils # (A) 6.29 X 10*3/uL (1.80-7.70); Neutrophils % (A) 66.4 %; Platelet Count 218 X 10*3/uL (140-440); RBC 3.54 X 10*6/uL (4.40-5.60); WBC 9.48 X 10*3/uL (4.50-10.00)
[2022-08-13 08:47] LABS: Anion Gap 12.5 mmol/L (10.00-18.00); Blood Urea Nitrogen 9.8 mg/dL (9.0-27.0); Calcium 8.1 mg/dL (8.7-10.3); Carbon Dioxide 24.5 mmol/L (20.0-27.5); Non-African American GFR(CKD) 98.3 (60.0-200.0); Potassium 3.8 mmol/L (3.5-5.5)
--- NOTE | 2022-08-13 08:48 | P.CONS ---
History of Present Illness - Reason for Consult Consult date: 08/12/22 Right knee infection Requesting physician: Clari Ott - Chief Complaint Right knee nonhealing wound and pain x few days - History of Present Illness Patient is a 67-year-old male presented to the hospital for her right knee wound and concerning for infection patient apparently did have an injury to the right knee and was admitted to the hospital from 927 till 07/16/2022 for a laceration to the right knee area patient at that time did have cultures obtained however those was negative by the time the patient was discharged from the hospital on 07/16/2022 patient was supposed to follow-up in the outpatient setting patient mention when taking the oral antibiotic his leg was getting better however after stopping his antibiotic he noticed to have increasing swelling redness to the right knee area did have some dull aching pain 3-4 out of 10 no radiation patient has been cleaning his wound her with the peroxide every day however the wound seems to be not healing with the symptom the patient presented back to the hospital on arrival to the ER the patient was afebrile patient did have normal white count kidney function has been normal culture has been obtained from the right knee area patient be started on cefepime and vancomycin infectious disease was consulted for further management of antibiotic therapy Review of Systems Positive point has been mentioned in the HPI rest of the systems are negative Past Medical History Past Medical History: Hypertension History of Any Multi-Drug Resistant Organisms: None Reported Past Surgical History: Unable to Obtain, Orthopedic Surgery Additional Past Surgical History / Comment(s): torn rotator cuff, left arm surgery, "something done to knees" Past Anesthesia/Blood Transfusion Reactions: No Reported Reaction Past Psychological History: No Psychological Hx Reported Smoking Status: Current every day smoker Past Alcohol Use History: Daily Past Drug Use History: None Reported, Marijuana Medications and Allergies Home Medications Medication Instructions Recorded Confirmed Type Metoprolol Succinate [Toprol XL] 50 mg PO DAILY 07/13/22 08/12/22 History Multivitamins, Thera [Multivitamin 1 tab PO DAILY 07/13/22 08/12/22 History (formulary)] Naproxen Sodium [Aleve] 220 mg PO BID PRN 07/13/22 08/12/22 History amLODIPine BESYLATE/BENAZEPRIL 1 cap PO DAILY 07/13/22 08/12/22 History [Lotrel 10-20 mg Capsule] Allergies Allergy/AdvReac Type Severity Reaction Status Date / Time No Known Allergies Allergy Verified 08/12/22 13:17 Physical Exam Vitals: Vital Signs Temp Pulse Resp BP Pulse Ox 08/12/22 14:00 74 18 148/82 98 08/12/22 11:29 98.7 F 78 16 96 Intake and Output 08/12/22 08/12/22 08/12/22 06:59 14:59 22:59 Other: Weight 90.718 kg GENERAL DESCRIPTION: Elderly male lying in bed, no distress. No tachypnea or ac cessory muscle of respiration use. HEENT: Shows Pallor , no scleral icterus. Oral mucous membrane is dry. No pharyngeal erythema or thrush NECK: Trachea central, no thyromegaly. LUNGS: Unlabored breathing. Clear to auscultation anteriorly. No wheeze or crackle. HEART: S1, S2, regular rate and rhythm. No loud murmur ABDOMEN: Soft, no tenderness , guarding or rigidity, no organomegaly EXTREMITIES: No edema of feet. Right anterior knee wound with slough tissue some surrounding swelling minimal redness no foul-smelling SKIN: No rash, no masses palpable. NEUROLOGICAL: The patient is awake, alert, oriented x3, mood and affect normal. Results CBC & Chem 7: 08/14/22 06:10 08/14/22 06:10 Labs: Abnormal Lab Results - Last 24 Hours (Table) 08/12/22 08/12/22 Range/Units 11:51 11:51 RBC 3.97 L (4.30-5.90) m/uL MCV 103.3 H (80.0-100.0) fL Glucose 102 H (74-99) mg/dL C-Reactive Protein 1.0 H (<1.0) mg/dL Assessment and Plan (1) Cellulitis of right knee Current Visit: No Status: Acute Code(s): L03.115 - CELLULITIS OF RIGHT LOWER LIMB SNOMED Code(s): [id number] Plan: 1patient with a nonhealing wound to the right knee areas started with a trauma now presented to hospital with worsening concerning for wound infection and secondary cellulitis will need to cover for both gram-positive as well as gram- negative pathogen. 2patient will need surgical debridement of his wound and a deep cultures and antibiotic on the basis of those culture. 3patient to continue with the vancomycin and cefepime while waiting for the culture to finalize. 4local wound care with Santyl followed by moist dressing to change daily. We will follow on clinical condition and cultures to further adjust medication if needed Thank you for this consultation will follow this patient along with you Time with Patient: Greater than 30
[2022-08-13] MEDS: HEPARIN SODIUM,PORCINE/PF 5,000 UNIT/0.5 ML SYRINGE SQ SCH ×2 (09:08→15:33)
[2022-08-13] MEDS: amLODIPine 10 MG TAB PO SCH (11:10)
[2022-08-13] MEDS: MULTIVITAMINS, THERA 1 EACH TAB PO SCH (11:12)
[2022-08-13] MEDS: METOPROLOL SUCCINATE (ER) 50 MG TAB.ER.24H PO SCH (11:12)
[2022-08-13] MEDS: lisinopriL 20 MG TAB PO SCH (11:12)
[2022-08-13] MEDS: COLLAGENASE 250 UNIT/GM OINTMENT 30 GM TUBE TOPICAL SCH (11:49)
[2022-08-14] MEDS: HEPARIN SODIUM,PORCINE/PF 5,000 UNIT/0.5 ML SYRINGE SQ SCH ×3 (00:30→15:59)
--- NOTE | 2022-08-14 00:58 | P.PN ---
Subjective Progress Note Date: 08/13/22 Patient is a 67-year-old male with a known history of hypertension and recent history of laceration injury status post fall on 07/02/2022 while climbing down a ladder and landed on his knees. Patient presented to ER with complaints of worsening swelling and pain and nonhealing wound which is worsening for the past 2-3 days. Patient was admitted to the hospital from 07/14/2022 to 07/16/2022 and was continued on IV antibiotics. Cultures have been negative at the time and patient was sent home with oral antibiotic course. Patient states that his wound did improve until a few days ago started becoming more red and pain and nonhealing. Was also having minimal purulent drainage noted. Patient has been afebrile. No nausea vomiting or abdominal diarrhea. No cough or sputum production. No chest pain or shortness of breath. Patient presented to ER for further evaluation. Patient did not get a chance to follow with ID clinic after discharge. X-ray of the knee showed no acute fracture or dislocation. Moderate diffuse subcutaneous edema noted. More focal fluid medial aspect subcutaneous tissue greater than about the knee joint is redemonstrated. Unchanged from prior. Sodium 141 potassium 4.0 chloride 104 bicarb is 24 BUN 11 and creatinine 0.69 Progress to a level is 0.11 and CRP 1.0. Liver enzymes are not elevated. 08/13/2022 Patient is currently lying in bed. Awake alert oriented x3. Right knee wound dressing was done. Surrounding redness is improving. General surgery was consulted for possible debridement. Continued on broad-spectrum antibiotics and follow-up culture report. Patient has been afebrile. No nausea vomiting abdominal pain or diarrhea. No chest pain or shortness of breath. No cough or sputum production. Laboratory pressure WBC 9.4 hemoglobin 11.9 and platelets 218 BUN 9.8 and creatinine 0.7 and calcium 8.1. ID is on board. Current medications reviewed Objective - Vital Signs Vital signs: Vital Signs Temp 98.5 F 08/13/22 12:08 Pulse 73 08/13/22 12:08 Resp 20 08/13/22 12:08 BP 142/84 08/13/22 12:08 Pulse Ox 97 08/13/22 12:08 FiO2 Intake & Output 08/12/22 08/13/22 08/13/22 18:59 06:59 18:59 Output Total 0 0 Balance 0 0 Weight 90.718 kg Output: Stool 0 0 Other: Voiding Method Toilet Toilet Urinal Urinal - Exam PHYSICAL EXAMINATION: Patient is lying in the bed comfortably, no acute distress, awake alert and oriented.. HEENT: Normocephalic. Neck is supple. Pupils reactive. Nostrils clear. Oral cavity is moist. Neck reveals no JVD, carotid bruits, or thyromegaly. CHEST EXAMINATION: Trachea is central. Symmetrical expansion. Lung [place] clear to auscultation and percussion. CARDIAC: Normal S1, S2 with no gallops. No murmurs ABDOMEN: Soft. Bowel sounds normal. No organomegaly. No abdominal bruits. Extremities: reveal no edema. No clubbing or cyanosis Neurologically awake, alert, oriented x3 with well-coordinated movements. No focal deficits noted Skin: Patient does have lacerated wound over the right knee with dark eschar and minimal purulent discharge. Surrounding redness and warmth. Psychiatric: Coperative. Nonsuicidal Musculoskeletal: No joint swelling or deformity. Normal range of motion. - Labs CBC & Chem 7: 08/13/22 05:31 08/13/22 05:31 Labs: Abnormal Lab Results - Last 24 Hours (Table) 08/12/22 08/13/22 08/13/22 Range/Units 11:51 05:31 05:31 RBC (4.40-5.60) X 10*6/uL Hgb (13.0-17.0) g/dL Hct (39.6-50.0) % MCV (80.0-97.0) fL MCH (27.0-32.0) pg Monocytes # (0.20-1.00) X 10*3/uL Eosinophils # (0.04-0.35) X 10*3/uL ESR 31 H (0-15) mm/hr Calcium 8.1 L (8.7-10.3) mg/dL Procalcitonin 0.11 H (0.02-0.09) ng/mL 08/13/22 Range/Units 05:31 RBC 3.54 L (4.40-5.60) X 10*6/uL Hgb 11.9 L (13.0-17.0) g/dL Hct 35.8 L (39.6-50.0) % MCV 101.1 H (80.0-97.0) fL MCH 33.6 H (27.0-32.0) pg Monocytes # 1.20 H (0.20-1.00) X 10*3/uL Eosinophils # 0.45 H (0.04-0.35) X 10*3/uL ESR (0-15) mm/hr Calcium (8.7-10.3) mg/dL Procalcitonin (0.02-0.09) ng/mL Microbiology - Last 24 Hours (Table) 08/12/22 11:40 Blood Culture - Preliminary Blood No Growth after 24 hours 08/12/22 12:10 Gram Stain - Preliminary Knee - Right Wound Culture - Preliminary Gram Neg Bacilli 08/12/22 12:10 Anaerobic Culture - Preliminary Knee - Right Assessment and Plan Assessment: Nonhealing right lower extremity Llacerated wound infection over the knee with surrounding cellulitis. History of fall from ladder on 07/02/2022. Patient was admitted to hospital from 07/14/2022 to 07/16/2022 Hypertension DVT prophylaxis Plan: Patient will be carried on broad-spectrum antibiotics. Continue with vancomycin and cefepime and follow up wound cultures. ID is on board and also vascular surgery was consulted for possible debridement. Current with home medications and pain management and follow up closely. Time with Patient: Greater than 30
[2022-08-14] MEDS: CEFEPIME 2 GM in SODIUM CHLORIDE 0.9% 100 ML IVPB SCH ×2 (02:04→14:56)
[2022-08-14] MEDS: VANCOMYCIN 1,500 MG in SODIUM CHLORIDE 0.9% 500 ML 500 ML IVPB SCH (02:46)
[2022-08-14] MEDS: HYDROcodone/APAP 5-325MG 1 EACH TAB PO PRN ×3 (08:01→20:01)
[2022-08-14 08:43] LABS: Basophils # (A) 0.02 X 10*3/uL (0.00-0.10); Basophils % (A) 0.3 %; Eosinophils # (A) 0.52 X 10*3/uL (0.04-0.35); Eosinophils % (A) 6.7 %; HCT 38.8 % (39.6-50.0); HGB 12.8 g/dL (13.0-17.0); Immature Grans, Automated 0.3 %; Lymphocytes # (A) 1.51 X 10*3/uL (0.90-5.00); Lymphocytes % (A) 19.6 %; MCH 34.1 pg (27.0-32.0); MCV 103.5 fL (80.0-97.0); Mean Platelet Volume 11.9 fL (9.5-12.2); Monocytes # (A) 1.07 X 10*3/uL (0.20-1.00); Monocytes % (A) 13.9 %; NRBC Per 100 WBC 0 /100 WBCS (0.0-0.0); Neutrophils # (A) 4.58 X 10*3/uL (1.80-7.70); Neutrophils % (A) 59.2 %; Platelet Count 216 X 10*3/uL (140-440); RBC 3.75 X 10*6/uL (4.40-5.60); WBC 7.72 X 10*3/uL (4.50-10.00)
[2022-08-14 08:55] LABS: African American GFR (CKD) 107.9 (60.0-200.0); Anion Gap 10.4 mmol/L (10.00-18.00); BUN/Creat Ratio 11.38 Ratio (12.00-20.00); Blood Urea Nitrogen 9.1 mg/dL (9.0-27.0); Calcium 8.4 mg/dL (8.7-10.3); Carbon Dioxide 23.6 mmol/L (20.0-27.5); Non-African American GFR(CKD) 93.1 (60.0-200.0); Potassium 3.9 mmol/L (3.5-5.5)
[2022-08-14] MEDS ORDERED: LIDOCAINE 1% INJ 10MG/ML (30 ML VIAL-PF) SQ ONE (09:00)
[2022-08-14] MEDS: METOPROLOL SUCCINATE (ER) 50 MG TAB.ER.24H PO SCH (09:43)
[2022-08-14] MEDS: amLODIPine 10 MG TAB PO SCH (09:43)
[2022-08-14] MEDS: lisinopriL 20 MG TAB PO SCH (09:44)
[2022-08-14] MEDS: MULTIVITAMINS, THERA 1 EACH TAB PO SCH (09:45)
[2022-08-14] MEDS: COLLAGENASE 250 UNIT/GM OINTMENT 30 GM TUBE TOPICAL SCH (10:06)
--- NOTE | 2022-08-14 12:34 | CONS ---
CONSULTATION HISTORY OF PRESENT ILLNESS: This is a 67-year-old gentleman, who has a history of fall on 12 of July. He had an open wound to the right knee area, and the patient came to the emergency room. The wound was closed, then the patient developed dehiscence of the wound. The patient has been admitted with open wound at the right knee area. The patient is on IV antibiotic. MEDICAL HISTORY: No history of diabetes. History of hypertension. PERSONAL HISTORY: No known allergies. PHYSICAL EXAMINATION: NECK: Supple. No bruit appreciated. CHEST: Clear to auscultation. ABDOMEN: Soft. EXTREMITIES: Femoral pulses are palpable. Dorsalis pedis is 1+. The patient has open wound to right knee. PLAN: Debridement of the wound and deep culture. Continue with IV antibiotic. We will keep the patient n.p.o. at midnight. JOHN / KEVIN: [id number] /
[2022-08-14] MEDS ORDERED: VANCOMYCIN TROUGH DUE 1 EACH MISC MISCELLANE ONE (14:00)
--- NOTE | 2022-08-14 15:43 | P.PN ---
Subjective Progress Note Date: 08/13/22 Principal diagnosis: Right knee wound infection Patient is a 67 year old male with a history of right knee wound traumatic presenting to the hospital with increasing pain swelling redness and drainage concerning for wound infection. on today's evaluation that is 08/13/2022, patient denies having any fever or any chills, patient still complaining of pain to the right knee area but no worsening, no chest pain shortness of breath or cough no abdominal pain or diarr hea Objective - Vital Signs Vital signs: Vital Signs Temp 98.5 F 08/13/22 12:08 Pulse 73 08/13/22 12:08 Resp 20 08/13/22 12:08 BP 142/84 08/13/22 12:08 Pulse Ox 97 08/13/22 12:08 FiO2 Intake & Output 08/12/22 08/13/22 08/13/22 18:59 06:59 18:59 Output Total 0 0 Balance 0 0 Weight 90.718 kg Output: Stool 0 0 Other: Voiding Method Toilet Toilet Urinal Urinal - Exam GENERAL DESCRIPTION: An elderly male lying in bed in no distress RESPIRATORY SYSTEM: Unlabored breathing , decreased breath sounds at bases HEART: S1 S2 regular rate and rhythm , ABDOMEN: Soft , no tenderness EXTREMITIES: Right anterior knee wound 2 with slough tissue minimal surrounding swelling - Labs CBC & Chem 7: 08/14/22 06:10 08/14/22 06:10 Labs: Abnormal Lab Results - Last 24 Hours (Table) 08/12/22 08/13/22 08/13/22 Range/Units 11:51 05:31 05:31 RBC (4.40-5.60) X 10*6/uL Hgb (13.0-17.0) g/dL Hct (39.6-50.0) % MCV (80.0-97.0) fL MCH (27.0-32.0) pg Monocytes # (0.20-1.00) X 10*3/uL Eosinophils # (0.04-0.35) X 10*3/uL ESR 31 H (0-15) mm/hr Calcium 8.1 L (8.7-10.3) mg/dL Procalcitonin 0.11 H (0.02-0.09) ng/mL 08/13/22 Range/Units 05:31 RBC 3.54 L (4.40-5.60) X 10*6/uL Hgb 11.9 L (13.0-17.0) g/dL Hct 35.8 L (39.6-50.0) % MCV 101.1 H (80.0-97.0) fL MCH 33.6 H (27.0-32.0) pg Monocytes # 1.20 H (0.20-1.00) X 10*3/uL Eosinophils # 0.45 H (0.04-0.35) X 10*3/uL ESR (0-15) mm/hr Calcium (8.7-10.3) mg/dL Procalcitonin (0.02-0.09) ng/mL Microbiology - Last 24 Hours (Table) 08/12/22 11:50 Blood Culture - Preliminary Blood No Growth after 24 hours 08/12/22 11:40 Blood Culture - Preliminary Blood No Growth after 24 hours 08/12/22 12:10 Gram Stain - Preliminary Knee - Right Wound Culture - Preliminary Gram Neg Bacilli 08/12/22 12:10 Anaerobic Culture - Preliminary Knee - Right Assessment and Plan (1) Unspecified open wound, right knee, subsequent encounter Current Visit: Yes Status: Acute Code(s): S81.001D - UNSPECIFIED OPEN WOUND, RIGHT KNEE, SUBSEQUENT ENCOUNTER SNOMED Code(s): 47046387985930745 (2) Cellulitis of right knee Current Visit: No Status: Acute Code(s): L03.115 - CELLULITIS OF RIGHT LOWER LIMB SNOMED Code(s): 62681039210031148 Plan: 1patient with a nonhealing wound to the right knee areas started with a trauma now presented to hospital with worsening concerning for wound infection and secondary cellulitis will need to cover for both gram-positive as well as gram- negative pathogen. 2patient will need surgical debridement of his wound and a deep cultures for which vascular surgery has been consulted case was discussed with him 3patient to continue with the vancomycin and cefepime while waiting for the culture to finalize. 4local wound care with Santyl followed by moist dressing to change daily. Time with Patient: Less than 30
--- NOTE | 2022-08-14 15:45 | P.PN ---
Subjective Progress Note Date: 08/14/22 Principal diagnosis: Right knee wound infection Patient is a 67 year old male with a history of right knee wound traumatic presenting to the hospital with increasing pain swelling redness and drainage concerning for wound infection. on today's evaluation that is 08/14/2022, patient remains to be afebrile, patient pain to the right knee area is currently controlled, the patient denies chest pain shortness of breath or cough no abdominal pain or diarrhea Objective - Vital Signs Vital signs: Vital Signs Temp 97.7 F 08/14/22 09:16 Pulse 61 08/14/22 09:16 Resp 18 08/14/22 09:16 BP 154/90 08/14/22 09:16 Pulse Ox 96 08/14/22 09:16 FiO2 Intake & Output 08/13/22 08/14/22 08/14/22 18:59 06:59 18:59 Intake Total 500 1070 Output Total 0 0 Balance 500 1070 Intake: Intake, IV Titration 500 Amount Vancomycin 1,500 mg In 500 Sodium Chloride 0.9% 500 ml 500 ml @ 167 mls/hr IVPB Q12H [facility] Rx#: [id number] Oral 1070 Output: Stool 0 0 Other: Voiding Method Toilet Toilet Toilet Urinal Urinal Urinal # Voids 2 - Exam GENERAL DESCRIPTION: An elderly male lying in bed in no distress RESPIRATORY SYSTEM: Unlabored breathing , decreased breath sounds at bases HEART: S1 S2 regular rate and rhythm , ABDOMEN: Soft , no tenderness EXTREMITIES: Right anterior knee wound 2 with slough tissue minimal surrounding swelling - Labs CBC & Chem 7: 08/14/22 06:10 08/14/22 06:10 Labs: Abnormal Lab Results - Last 24 Hours (Table) 08/13/22 08/14/22 08/14/22 Range/Units 05:31 06:10 06:10 RBC 3.75 L (4.40-5.60) X 10*6/uL Hgb 12.8 L (13.0-17.0) g/dL Hct 38.8 L (39.6-50.0) % MCV 103.5 H (80.0-97.0) fL MCH 34.1 H (27.0-32.0) pg Monocytes # 1.07 H (0.20-1.00) X 10*3/uL Eosinophils # 0.52 H (0.04-0.35) X 10*3/uL ESR 31 H (0-15) mm/hr Sodium 134 L (135-145) mmol/L BUN/Creatinine Ratio 11.38 L (12.00-20.00) Ratio Calcium 8.4 L (8.7-10.3) mg/dL Microbiology - Last 24 Hours (Table) 08/12/22 11:50 Blood Culture - Preliminary Blood No Growth after 24 hours 08/12/22 11:40 Blood Culture - Preliminary Blood No Growth after 24 hours 08/12/22 12:10 Gram Stain - Preliminary Knee - Right Wound Culture - Preliminary Gram Neg Bacilli Assessment and Plan (1) Unspecified open wound, right knee, subsequent encounter Current Visit: Yes Status: Acute Code(s): S81.001D - UNSPECIFIED OPEN WOUND, RIGHT KNEE, SUBSEQUENT ENCOUNTER SNOMED Code(s): 58224553589455635 (2) Cellulitis of right knee Current Visit: No Status: Acute Code(s): L03.115 - CELLULITIS OF RIGHT LOWER LIMB SNOMED Code(s): 75041639564979260 Plan: 1patient with a nonhealing wound to the right knee areas started with a trauma now presented to hospital with worsening concerning for wound infection and secondary cellulitis will need to cover for both gram-positive as well as gram-negative pathogen. 2patient will need surgical debridement of his wound and a deep cultures for which vascular surgery has been consulted, patient is currently waiting for surgical debridement and culture 3patient local cultures are currently growing gram-negative bacilli we will continue cefepime however discontinue vancomycin as no gram-positive has been seen Time with Patient: Less than 30
--- NOTE | 2022-08-14 18:28 | P.PN ---
Subjective Progress Note Date: 08/14/22 67-year-old male with a known history of hypertension and recent history of laceration injury status post fall on 07/02/2022 while climbing down a ladder and landed on his knees. Patient presented to ER with complaints of worsening swelling and pain and nonhealing wound which is worsening for the past 2-3 days. Patient was admitted to the hospital from 07/14/2022 to 07/16/2022 and was continued on IV antibiotics. Cultures have been negative at the time and patient was sent home with oral antibiotic course. Patient states that his wound did improve until a few days ago started becoming more red and pain and nonhealing. Was also having minimal purulent drainage noted. Patient has been afebrile. No nausea vomiting or abdominal diarrhea. No cough or sputum production. No chest pain or shortness of breath. Patient presented to ER for further evaluation. Patient did not get a chance to follow with ID clinic after discharge. X-ray of the knee showed no acute fracture or dislocation. Moderate diffuse subcutaneous edema noted. More focal fluid medial aspect subcutaneous tissue greater than about the knee joint is redemonstrated. Unchanged from prior. Sodium 141 potassium 4.0 chloride 104 bicarb is 24 BUN 11 and creatinine 0.69 Progress to a level is 0.11 and CRP 1.0. Liver enzymes are not elevated. Objective - Vital Signs Vital signs: Vital Signs Temp 98.3 F 08/14/22 18:25 Pulse 59 L 08/14/22 18:25 Resp 17 08/14/22 18:25 BP 123/65 08/14/22 18:25 Pulse Ox 94 L 08/14/22 18:25 FiO2 Intake & Output 08/13/22 08/14/22 08/14/22 18:59 06:59 18:59 Intake Total 500 1070 100 Output Total 0 0 Balance 500 1070 100 Intake: Intake, IV Titration 500 100 Amount Cefepime 2 gm In Sodium 100 Chloride 0.9% 100 ml @ 200 mls/hr IVPB Q12H [facility] Rx#:[id number] Vancomycin 1,500 mg In 500 Sodium Chloride 0.9% 500 ml 500 ml @ 167 mls/hr IVPB Q12H [facility] Rx#: [id number] Oral 1070 Output: Stool 0 0 Other: Voiding Method Toilet Toilet Toilet Urinal Urinal Urinal # Voids 2 - Exam HEENT: Normocephalic. Neck is supple. Pupils reactive. Nostrils clear. Oral cavity is moist. Neck reveals no JVD, carotid bruits, or thyromegaly. CHEST EXAMINATION: Trachea is central. Symmetrical expansion. Lung madison clear to auscultation and percussion. CARDIAC: Normal S1, S2 with no gallops. No murmurs ABDOMEN: Soft. Bowel sounds normal. No organomegaly. No abdominal bruits. Extremities: reveal no edema. No clubbing or cyanosis Neurologically awake, alert, oriented x3 with well-coordinated movements. No focal deficits noted Skin: Patient does have lacerated wound over the right knee with dark eschar and minimal purulent discharge. Surrounding redness and warmth. Psychiatric: Coperative. Nonsuicidal Musculoskeletal: No joint swelling or deformity. Normal range of motion. - Labs CBC & Chem 7: 08/14/22 06:10 08/14/22 06:10 Labs: Abnormal Lab Results - Last 24 Hours (Table) 08/14/22 08/14/22 Range/Units 06:10 06:10 RBC 3.75 L (4.40-5.60) X 10*6/uL Hgb 12.8 L (13.0-17.0) g/dL Hct 38.8 L (39.6-50.0) % MCV 103.5 H (80.0-97.0) fL MCH 34.1 H (27.0-32.0) pg Monocytes # 1.07 H (0.20-1.00) X 10*3/uL Eosinophils # 0.52 H (0.04-0.35) X 10*3/uL Sodium 134 L (135-145) mmol/L BUN/Creatinine Ratio 11.38 L (12.00-20.00) Ratio Calcium 8.4 L (8.7-10.3) mg/dL Microbiology - Last 24 Hours (Table) 08/12/22 11:50 Blood Culture - Preliminary Blood No Growth after 48 hours 08/12/22 11:40 Blood Culture - Preliminary Blood No Growth after 48 hours 08/12/22 12:10 Gram Stain - Final Knee - Right Wound Culture - Final Gram Neg Bacilli Assessment and Plan Assessment: Nonhealing right lower extremity Llacerated wound infection over the knee with surrounding cellulitis. History of fall from ladder on 07/02/2022. Patient was admitted to hospital from 07/14/2022 to 07/16/2022 Hypertension DVT prophylaxis Plan: Patient will be carried on broad-spectrum antibiotics. Continue with vancomycin and cefepime and follow up wound cultures. ID is on board and also vascular surgery was consulted for possible debridement. Current with home medications and pain management and follow up closely.
[2022-08-15] MEDS: CEFEPIME 2 GM in SODIUM CHLORIDE 0.9% 100 ML IVPB SCH ×3 (00:15→23:21)
[2022-08-15] MEDS: HEPARIN SODIUM,PORCINE/PF 5,000 UNIT/0.5 ML SYRINGE SQ SCH ×4 (00:15→23:21)
--- NOTE | 2022-08-15 00:28 | OP ---
OPERATIVE REPORT PREOPERATIVE DIAGNOSIS: Infected traumatic wound, right knee lateral aspect. POSTOPERATIVE DIAGNOSIS: Infected traumatic wound, right knee lateral aspect. Measurement postdebridement is 3.5 x 2.5 x 1 cm. PROCEDURE: This patient has a history of trauma in the past. He has an open wound on the right leg lateral aspect. The leg was prepped and draped in an appropriate sterile manner. 1% lidocaine plain was infiltrated. Using sharp knife, we did the debridement down to the subcutaneous tissue, fat, and fascia. Devitalized tissue was removed. Tissue was sent for deep culture. Hemostasis was well controlled. The wound was irrigated with saline. Santyl cream was applied to the wound. Dressing was applied. The patient tolerated the procedure well. Dressing should be changed every day. MMJOSELINE / KEVIN: [id number] /
[2022-08-15 06:41] LABS: African American GFR (CKD) >90 (>60 ml/min/1.73 sqM); Non-African American GFR(CKD) >90 (>60 ml/min/1.73 sqM)
[2022-08-15] MEDS: METOPROLOL SUCCINATE (ER) 50 MG TAB.ER.24H PO SCH (08:42)
[2022-08-15] MEDS: lisinopriL 20 MG TAB PO SCH (08:42)
[2022-08-15] MEDS: MULTIVITAMINS, THERA 1 EACH TAB PO SCH (08:42)
[2022-08-15] MEDS: amLODIPine 10 MG TAB PO SCH (08:42)
[2022-08-15] MEDS: HYDROcodone/APAP 5-325MG 1 EACH TAB PO PRN ×4 (08:50→21:06)
[2022-08-15] MEDS: COLLAGENASE 250 UNIT/GM OINTMENT 30 GM TUBE TOPICAL SCH (09:46)
--- NOTE | 2022-08-15 10:02 | P.PN ---
Progress Note - Text 67-year-old gentleman has a traumatic wound right knee area we did the extensive debridement of the wound yesterday today we have changed the dressing base of the wound is clean we been using the Santyl cream which should be continued patient is an IV antibiotic under care of infectious disease
[2022-08-16] MEDS: HYDROcodone/APAP 5-325MG 1 EACH TAB PO PRN ×5 (03:28→20:39)
[2022-08-16 07:47] LABS: African American GFR (CKD) >90 (>60 ml/min/1.73 sqM); Anion Gap 9 mmol/L; Blood Urea Nitrogen 16 mg/dL (9-20); Calcium 8.6 mg/dL (8.4-10.2); Carbon Dioxide 24 mmol/L (22-30); Chloride 103 mmol/L (98-107); Glucose 103 mg/dL (74-99); Non-African American GFR(CKD) >90 (>60 ml/min/1.73 sqM); Potassium 4.2 mmol/L (3.5-5.1); Sodium 136 mmol/L (137-145)
[2022-08-16] MEDS: COLLAGENASE 250 UNIT/GM OINTMENT 30 GM TUBE TOPICAL SCH (07:48)
[2022-08-16] MEDS: amLODIPine 10 MG TAB PO SCH (07:49)
[2022-08-16] MEDS: MULTIVITAMINS, THERA 1 EACH TAB PO SCH (07:49)
[2022-08-16] MEDS: HEPARIN SODIUM,PORCINE/PF 5,000 UNIT/0.5 ML SYRINGE SQ SCH ×2 (07:49→16:20)
[2022-08-16] MEDS: METOPROLOL SUCCINATE (ER) 50 MG TAB.ER.24H PO SCH (07:49)
[2022-08-16] MEDS: lisinopriL 20 MG TAB PO SCH (07:49)
[2022-08-16 11:17] LABS: Basophils # (A) 0.04 X 10*3/uL (0.00-0.10); Basophils % (A) 0.5 %; Eosinophils # (A) 0.37 X 10*3/uL (0.04-0.35); Eosinophils % (A) 4.4 %; HCT 40.4 % (39.6-50.0); HGB 13.1 g/dL (13.0-17.0); Immature Grans, Automated 0.5 %; Lymphocytes % (A) 20.2 %; MCH 33.2 pg (27.0-32.0); MCHC 32.4 g/dL (32.0-37.0); MCV 102.3 fL (80.0-97.0); Mean Platelet Volume 11.2 fL (9.5-12.2); Monocytes # (A) 1.32 X 10*3/uL (0.20-1.00); Monocytes % (A) 15.7 %; NRBC Per 100 WBC 0 /100 WBCS (0.0-0.0); Neutrophils # (A) 4.93 X 10*3/uL (1.80-7.70); Neutrophils % (A) 58.7 %; Platelet Count 197 X 10*3/uL (140-440); RBC 3.95 X 10*6/uL (4.40-5.60); RDW 13.5 % (11.5-14.5)
[2022-08-16] MEDS: CEFEPIME 2 GM in SODIUM CHLORIDE 0.9% 100 ML IVPB SCH (12:16)
--- NOTE | 2022-08-16 19:15 | P.PN ---
Subjective Progress Note Date: 08/15/22 Principal diagnosis: Nonhealing right lower extremity Lacerated wound infection over the knee with surrounding cellulitis Fall from ladder on 07/02/2022 67-year-old male with a known history of hypertension and recent history of laceration injury status post fall on 07/02/2022 while climbing down a ladder and landed on his knees. Patient presented to ER with complaints of worsening swelling and pain and nonhealing wound which is worsening for the past 2-3 days. Patient was admitted to the hospital from 07/14/2022 to 07/16/2022 and was continued on IV antibiotics. Cultures have been negative at the time and patient was sent home with oral antibiotic course. Patient states that his wound did improve until a few days ago started becoming more red and pain and nonhealing. Was also having minimal purulent drainage noted. Patient has been afebrile. No nausea vomiting or abdominal diarrhea. No cough or sputum production. No chest pain or shortness of breath. Patient presented to ER for further evaluation. Patient did not get a chance to follow with ID clinic after discharge. X-ray of the knee showed no acute fracture or dislocation. Moderate diffuse subcutaneous edema noted. More focal fluid medial aspect subcutaneous tissue greater than about the knee joint is redemonstrated. Unchanged from prior. Sodium 141 potassium 4.0 chloride 104 bicarb is 24 BUN 11 and creatinine 0.69 Progress to a level is 0.11 and CRP 1.0. Liver enzymes are not elevated. 08/15/2022 67-year-old gentleman has a traumatic wound right knee area we did the extensive debridement of the wound yesterday today we have changed the dressing base of the wound is clean we been using the Santyl cream which should be continued agueda ent is an IV antibiotic under care of infectious disease Objective - Vital Signs Vital signs: Vital Signs Temp 98.1 F 08/15/22 04:57 Pulse 52 L 08/15/22 04:57 Resp 16 08/15/22 04:57 BP 133/87 08/15/22 04:57 Pulse Ox 97 08/15/22 04:57 FiO2 Intake & Output 08/14/22 08/15/22 08/15/22 18:59 06:59 18:59 Intake Total 100 590 Balance 100 590 Intake: Intake, IV Titration 100 Amount Cefepime 2 gm In Sodium 100 Chloride 0.9% 100 ml @ 200 mls/hr IVPB Q12H [facility] Rx#:[id number] Oral 590 Other: Voiding Method Toilet Toilet Urinal Urinal # Voids 2 - Exam HEENT: Normocephalic. Neck is supple. Pupils reactive. Nostrils clear. Oral cavity is moist. Neck reveals no JVD, carotid bruits, or thyromegaly. CHEST EXAMINATION: Trachea is central. Symmetrical expansion. Lung madison clear to auscultation and percussion. CARDIAC: Normal S1, S2 with no gallops. No murmurs ABDOMEN: Soft. Bowel sounds normal. No organomegaly. No abdominal bruits. Extremities: reveal no edema. No clubbing or cyanosis Neurologically awake, alert, oriented x3 with well-coordinated movements. No focal deficits noted Skin: Patient does have lacerated wound over the right knee with dark eschar and minimal purulent discharge. Surrounding redness and warmth. Psychiatric: Coperative. Nonsuicidal Musculoskeletal: No joint swelling or deformity. Normal range of motion. - Labs CBC & Chem 7: 08/16/22 07:17 08/16/22 07:17 Labs: Microbiology - Last 24 Hours (Table) 08/14/22 15:56 Gram Stain - Preliminary Knee - Right Tissue Culture - Preliminary 08/14/22 15:56 Anaerobic Culture - Preliminary Knee - Right 08/12/22 11:50 Blood Culture - Preliminary Blood No Growth after 48 hours 08/12/22 11:40 Blood Culture - Preliminary Blood No Growth after 48 hours 08/12/22 12:10 Gram Stain - Final Knee - Right Wound Culture - Final Gram Neg Bacilli Assessment and Plan Assessment: Nonhealing right lower extremity Llacerated wound infection over the knee with surrounding cellulitis. History of fall from ladder on 07/02/2022. Patient was admitted to hospital from 07/14/2022 to 07/16/2022 Hypertension DVT prophylaxis Plan: Patient will be carried on broad-spectrum antibiotics. Continue with vancomycin and cefepime and follow up wound cultures. ID is on board and also vascular surgery was consulted for possible debridement. Current with home medications and pain management and follow up closely.
--- NOTE | 2022-08-16 19:18 | P.PN ---
Subjective Progress Note Date: 08/16/22 Principal diagnosis: Nonhealing right lower extremity Lacerated wound infection over the knee with surrounding cellulitis Fall from ladder on 07/02/2022 67-year-old male with a known history of hypertension and recent history of laceration injury status post fall on 07/02/2022 while climbing down a ladder and landed on his knees. Patient presented to ER with complaints of worsening swelling and pain and nonhealing wound which is worsening for the past 2-3 days. Patient was admitted to the hospital from 07/14/2022 to 07/16/2022 and was continued on IV antibiotics. Cultures have been negative at the time and patient was sent home with oral antibiotic course. Patient states that his wound did improve until a few days ago started becoming more red and pain and nonhealing. Was also having minimal purulent drainage noted. Patient has been afebrile. No nausea vomiting or abdominal diarrhea. No cough or sputum production. No chest pain or shortness of breath. Patient presented to ER for further evaluation. Patient did not get a chance to follow with ID clinic after discharge. X-ray of the knee showed no acute fracture or dislocation. Moderate diffuse subcutaneous edema noted. More focal fluid medial aspect subcutaneous tissue greater than about the knee joint is redemonstrated. Unchanged from prior. Sodium 141 potassium 4.0 chloride 104 bicarb is 24 BUN 11 and creatinine 0.69 Progress to a level is 0.11 and CRP 1.0. Liver enzymes are not elevated. 08/15/2022 67-year-old gentleman has a traumatic wound right knee area we did the extensive debridement of the wound yesterday today we have changed the dressing base of the wound is clean we been using the Santyl cream which should be continued agueda ent is an IV antibiotic under care of infectious disease 08/16/2022 Patient is seen and evaluated with family members at bedside; questioning discharge planning Vital signs are reviewed and stable Lab review shows WBC 8.40, hemoglobin 13.1, hematocrit 40.4 and platelet count of 197, sodium 136 on physical 0.2, BUN/creatinine of 16/0.77 Patient remains on IV antibiotics in form of cefepime; wound culture revealed gram-negative bacilli and vancomycin was discontinued ID on board and recommending to finalize antibiotics once deep performed culture results are available Objective - Vital Signs Vital signs: Vital Signs Temp 98.5 F 08/16/22 11:04 Pulse 48 L 08/16/22 11:04 Resp 18 08/16/22 11:04 BP 122/77 08/16/22 11:04 Pulse Ox 96 08/16/22 11:04 FiO2 Intake & Output 08/15/22 08/16/22 08/16/22 18:59 06:59 18:59 Intake Total 800 100 Balance 800 100 Intake: Intake, IV Titration 100 Amount Cefepime 2 gm In Sodium 100 Chloride 0.9% 100 ml @ 200 mls/hr IVPB Q12H [facility] Rx#:[id number] Oral 800 Other: Voiding Method Toilet Urinal # Voids 3 - Exam HEENT: Normocephalic. Neck is supple. Pupils reactive. Nostrils clear. Oral cavity is moist. Neck reveals no JVD, carotid bruits, or thyromegaly. CHEST EXAMINATION: Trachea is central. Symmetrical expansion. Lung mad[place] clear to auscultation and percussion. CARDIAC: Normal S1, S2 with no gallops. No murmurs ABDOMEN: Soft. Bowel sounds normal. No organomegaly. No abdominal bruits. Extremities: reveal no edema. No clubbing or cyanosis Neurologically awake, alert, oriented x3 with well-coordinated movements. No focal deficits noted Skin: Patient does have lacerated wound over the right knee with dark eschar and minimal purulent discharge. Surrounding redness and warmth. Psychiatric: Coperative. Nonsuicidal Musculoskeletal: No joint swelling or deformity. Normal range of motion. - Labs CBC & Chem 7: 08/16/22 07:17 08/16/22 07:17 Labs: Abnormal Lab Results - Last 24 Hours (Table) 08/16/22 08/16/22 Range/Units 07:17 07:17 RBC 3.95 L (4.40-5.60) X 10*6/uL MCV 102.3 H (80.0-97.0) fL MCH 33.2 H (27.0-32.0) pg Monocytes # 1.32 H (0.20-1.00) X 10*3/uL Eosinophils # 0.37 H (0.04-0.35) X 10*3/uL Sodium 136 L (137-145) mmol/L Glucose 103 H (74-99) mg/dL Microbiology - Last 24 Hours (Table) 08/14/22 15:56 Gram Stain - Preliminary Knee - Right Tissue Culture - Preliminary Gram Neg Bacilli 08/12/22 12:10 Anaerobic Culture - Final Knee - Right Anaerobic Gm Negative Bacilli Anaerobic Gm Negative Bacilli#2 08/12/22 11:50 Blood Culture - Preliminary Blood No Growth after 72 hours 08/12/22 11:40 Blood Culture - Preliminary Blood No Growth after 72 hours Assessment and Plan Assessment: Nonhealing right lower extremity Llacerated wound infection over the knee with surrounding cellulitis. History of fall from ladder on 07/02/2022. Patient was admitted to hospital from 07/14/2022 to 07/16/2022 Hypertension DVT prophylaxis Plan: Patient will be carried on broad-spectrum antibiotics. Continue with vancomycin and cefepime and follow up wound cultures. ID is on board and also vascular surgery was consulted for possible debridement. Current with home medications and pain management and follow up closely.
[2022-08-17] MEDS: CEFEPIME 2 GM in SODIUM CHLORIDE 0.9% 100 ML IVPB SCH ×2 (00:10→12:52)
[2022-08-17] MEDS: HEPARIN SODIUM,PORCINE/PF 5,000 UNIT/0.5 ML SYRINGE SQ SCH ×3 (00:10→15:57)
[2022-08-17] MEDS: HYDROcodone/APAP 5-325MG 1 EACH TAB PO PRN ×5 (02:38→20:09)
[2022-08-17 06:57] LABS: African American GFR (CKD) >90 (>60 ml/min/1.73 sqM); Non-African American GFR(CKD) >90 (>60 ml/min/1.73 sqM)
[2022-08-17] MEDS: metroNIDAZOLE 500 MG TAB PO SCH ×3 (09:32→20:10)
[2022-08-17] MEDS: METOPROLOL SUCCINATE (ER) 25 MG TAB.ER.24H PO SCH ×2 (09:32→09:37)
[2022-08-17] MEDS: MULTIVITAMINS, THERA 1 EACH TAB PO SCH (09:32)
[2022-08-17] MEDS: amLODIPine 10 MG TAB PO SCH (09:32)
[2022-08-17] MEDS: lisinopriL 20 MG TAB PO SCH (09:32)
[2022-08-17] MEDS: COLLAGENASE 250 UNIT/GM OINTMENT 30 GM TUBE TOPICAL SCH (09:33)
--- NOTE | 2022-08-17 12:54 | CDI ---
Documentation Clarification Form Date: 08/17/2022 12:37:38 PM From: Aline Blankenship RN CCDS Admit Date: 08/12/2022 02:45:00 PM Patient Name: Mario Cuba Visit Number: [id number] Discharge Date: ATTENTION: The Clinical Documentation Specialists (CDI) and [facility] Coding Staff appreciate your assistance in clarifying documentation. Please respond to the clarification below the line at the bottom and electronically sign. The CDI & [facility] Coding staff will review the response and follow-up if needed. Please note: Queries are made part of the Legal Health Record. If you have any questions, please contact the author of this message via ITS. Dr. Severo Sandoval debridement is documented 08/14, Operative note. Additional clarification regarding the procedure is requested. History/Risk Factors: 67-year-old male presents to the ED with nonhealing right lower extremity lacerated wound infection over the knee with surrounding cellulitis. Medical History: HTN, recent history of laceration injury from 07/01/22 and current everyday smoker. 08/12, H&P. Clinical Indicators: Operative Diagnosis: Infected traumatic wound, right knee lateral aspect. Using sharp knife, we did the debridement down to the subcutaneous tissue, fat and fascia. Devitalized tissue was removed. Deep culture. Post operative diagnosis: Infected traumatic wound, right knee lateral aspect. Measurement post debridement is 3.5 x 2.5 x 1cm. Treatment: 08/14 Debridement right knee lateral aspect. Please clarify the type of procedure performed: [ X ] Excisional debridement (the removal of necrotic, devitalized tissue or slough by means of cutting away of tissue) [ ] Non-excisional debridement (the removal of necrotic, devitalized tissue or slough by means of flushing, brushing, or washing. (Irrigation) [ ] Other; please specify [ ] Unable to determine Five elements required for accurate and compliant documentation of a debridement: Technique used (e.g., excisional, excised, cutting, brushing, jet lavage etc.) Instrument(s) used (e.g., scalpel, curette, etc.) Nature of the tissue removed (e.g., necrotic, devitalized tissues, non-viable tissue, etc.) Appearance and size of the wound (e.g., down to fresh bleeding tissue, 7cm x 10cm, etc.) Depth of the debridement* (e.g., skin, subcutaneous tissue, fascia, muscle, bone, etc.) (Template Last Revised: December 2020) MTDD
--- NOTE | 2022-08-17 21:58 | P.PN ---
Subjective 67-year-old male with a known history of hypertension and recent history of laceration injury status post fall on 07/02/2022 while climbing down a ladder and landed on his knees. Patient presented to ER with complaints of worsening swelling and pain and nonhealing wound which is worsening for the past 2-3 days. Patient was admitted to the hospital from 07/14/2022 to 07/16/2022 and was continued on IV antibiotics. Cultures have been negative at the time and patient was sent home with oral antibiotic course. Patient states that his wound did improve until a few days ago started becoming more red and pain and nonhealing. Was also having minimal purulent drainage noted. Patient has been afebrile. No nausea vomiting or abdominal diarrhea. No cough or sputum production. No chest pain or shortness of breath. Patient presented to ER for further evaluation. Patient did not get a chance to follow with ID clinic after discharge. X-ray of the knee showed no acute fracture or dislocation. Moderate diffuse subcutaneous edema noted. More focal fluid medial aspect subcutaneous tissue greater than about the knee joint is redemonstrated. Unchanged from prior. Sodium 141 potassium 4.0 chloride 104 bicarb is 24 BUN 11 and creatinine 0.69 Progress to a level is 0.11 and CRP 1.0. Liver enzymes are not elevated. 08/15/2022 67-year-old gentleman has a traumatic wound right knee area we did the extensive debridement of the wound yesterday today we have changed the dressing base of the wound is clean we been using the Santyl cream which should be continued patient is an IV antibiotic under care of infectious disease 08/16/2022 Patient is seen and evaluated with family members at bedside; questioning discharge planning Vital signs are reviewed and stable Lab review shows WBC 8.40, hemoglobin 13.1, hematocrit 40.4 and platelet count of 197, sodium 136 on physical 0.2, BUN/creatinine of 16/0.77 Patient remains on IV antibiotics in form of cefepime; wound culture revealed gram-negative bacilli and vancomycin was discontinued ID on board and recommending to finalize antibiotics once deep performed culture results are available 08/17/2022 pt is clinically doing well , he is still on cefepime and flagyl , id team on the case wound culture is growing multiple MO, pending final results possible dc in 24-48 hrs pt/ot : [facility] Objective - Vital Signs Vital signs: Vital Signs Temp 98.1 F 08/17/22 04:07 Pulse 52 L 08/17/22 09:34 Resp 18 08/17/22 04:07 BP 109/71 08/17/22 09:34 Pulse Ox 99 08/17/22 04:07 FiO2 Intake & Output 08/16/22 08/17/22 08/17/22 18:59 06:59 18:59 Intake Total 1300 690 Balance 1300 690 Intake: Intake, IV Titration 100 100 Amount Cefepime 2 gm In Sodium 100 100 Chloride 0.9% 100 ml @ 200 mls/hr IVPB Q12H [facility] Rx#:[id number] Oral 1200 590 Other: # Voids 3 2 - Exam GENERAL: The patient is alert and oriented x3, not in any acute distress. Well developed, well nourished. HEENT: Pupils are round and equally reacting to light. EOMI. No scleral icterus. No conjunctival pallor. Normocephalic, atraumatic. No pharyngeal erythema. No thyromegaly. CARDIOVASCULAR: S1 and S2 present. No murmurs, rubs, or gallops. PULMONARY: Chest is clear to auscultation, no wheezing or crackles. ABDOMEN: Soft, nontender, nondistended, normoactive bowel sounds. No palpable organomegaly. MUSCULOSKELETAL: No joint swelling or deformity. -EXTREMITIES: No cyanosis, clubbing, or pedal edema. right knee surgical wound in dressing with rest of exam is deferred to surgery team NEUROLOGICAL: Gross neurological examination did not reveal any focal deficits. SKIN: No rashes. no petechiae. - Labs CBC & Chem 7: 08/16/22 07:17 08/17/22 06:02 Labs: Abnormal Lab Results - Last 24 Hours (Table) 08/16/22 Range/Units 07:17 RBC 3.95 L (4.40-5.60) X 10*6/uL MCV 102.3 H (80.0-97.0) fL MCH 33.2 H (27.0-32.0) pg Monocytes # 1.32 H (0.20-1.00) X 10*3/uL Eosinophils # 0.37 H (0.04-0.35) X 10*3/uL Microbiology - Last 24 Hours (Table) 08/14/22 15:56 Anaerobic Culture - Final Knee - Right 08/14/22 15:56 Gram Stain - Preliminary Knee - Right Tissue Culture - Preliminary Morganella morganii Gram Neg Bacilli Gram Neg Bacilli#2 Coagulase Negative Staph 08/12/22 11:50 Blood Culture - Preliminary Blood No Growth after 96 hours 08/12/22 11:40 Blood Culture - Preliminary Blood No Growth after 96 hours Assessment and Plan Assessment: Nonhealing right lower extremity Llacerated wound infection over the knee with surrounding cellulitis. History of fall from ladder on 07/02/2022. Patient was admitted to hospital from 07/14/2022 to 07/16/2022 Hypertension DVT prophylaxis
--- NOTE | 2022-08-17 23:31 | PN ---
PROGRESS NOTE This is a 67-year-old gentleman I was seen for a wound on the right knee, traumatic. I was consulted for wound debridement. The patient was treated with excision of the devitalized tissue, was removed and culture came back as a gram-negative bacilli. The patient is on IV antibiotic, under the care of Infectious Disease. Today, we have changed the dressing. Base of the wound is granulating. We used Santyl cream, dressing applied. The patient tolerated the procedure well. MMODL / IJN: [id number] /
[2022-08-18] MEDS: CEFEPIME 2 GM in SODIUM CHLORIDE 0.9% 100 ML IVPB SCH ×2 (00:33→12:11)
[2022-08-18] MEDS: HEPARIN SODIUM,PORCINE/PF 5,000 UNIT/0.5 ML SYRINGE SQ SCH ×2 (00:33→09:43)
[2022-08-18] MEDS: HYDROcodone/APAP 5-325MG 1 EACH TAB PO PRN ×4 (00:35→14:42)
--- NOTE | 2022-08-18 07:43 | P.PN ---
Subjective Progress Note Date: 08/15/22 Principal diagnosis: Right knee wound infection Patient is a 67 year old male with a history of right knee wound traumatic presenting to the hospital with increasing pain swelling redness and drainage concerning for wound infection. on today's evaluation that is 08/15/2022 the patient denies having any fever or any chills, the patient pain to the right knee is currently controlled denies any chest pain or shortness of the cough no nausea vomiting no abdominal pain no diarrhea Objective - Vital Signs Vital signs: Vital Signs Temp 98.2 F 08/15/22 11:55 Pulse 51 L 08/15/22 11:55 Resp 16 08/15/22 11:55 BP 134/82 08/15/22 11:55 Pulse Ox 95 08/15/22 11:55 FiO2 Intake & Output 08/14/22 08/15/22 08/15/22 18:59 06:59 18:59 Intake Total 100 590 Balance 100 590 Intake: Intake, IV Titration 100 Amount Cefepime 2 gm In Sodium 100 Chloride 0.9% 100 ml @ 200 mls/hr IVPB Q12H [facility] Rx#:[id number] Oral 590 Other: Voiding Method Toilet Toilet Urinal Urinal # Voids 2 - Exam GENERAL DESCRIPTION: An elderly male lying in bed in no distress RESPIRATORY SYSTEM: Unlabored breathing , decreased breath sounds at bases HEART: S1 S2 regular rate and rhythm , ABDOMEN: Soft , no tenderness EXTREMITIES: Right anterior knee wound 2 with slough tissue minimal surrounding swelling - Labs CBC & Chem 7: 08/16/22 07:17 08/17/22 06:02 Labs: Microbiology - Last 24 Hours (Table) 08/12/22 11:50 Blood Culture - Preliminary Blood No Growth after 72 hours 08/12/22 11:40 Blood Culture - Preliminary Blood No Growth after 72 hours 08/14/22 15:56 Gram Stain - Preliminary Knee - Right Tissue Culture - Preliminary 08/14/22 15:56 Anaerobic Culture - Preliminary Knee - Right 08/12/22 12:10 Gram Stain - Final Knee - Right Wound Culture - Final Gram Neg Bacilli Assessment and Plan (1) Unspecified open wound, right knee, subsequent encounter Current Visit: Yes Status: Acute Code(s): S81.001D - UNSPECIFIED OPEN WOUND, RIGHT KNEE, SUBSEQUENT ENCOUNTER SNOMED Code(s): 23215715246282815 (2) Cellulitis of right knee Current Visit: No Status: Acute Code(s): L03.115 - CELLULITIS OF RIGHT LOWER LIMB SNOMED Code(s): 12918180922834274 Plan: 1patient with a nonhealing wound to the right knee areas started with a trauma now presented to hospital with worsening concerning for wound infection and secondary cellulitis will need to cover for both gram-positive as well as gram- negative pathogen. 2Patient is status post surgical debridement and deep cultures which are curr ently pending. 3patient to continue with the cefepime while waiting for the culture to finalize local care to continue with the Santyl followed by moist dressing daily Time with Patient: Less than 30
--- NOTE | 2022-08-18 07:45 | P.PN ---
Subjective Progress Note Date: 08/17/22 Principal diagnosis: Right knee wound infection Patient is a 67 year old male with a history of right knee wound traumatic presenting to the hospital with increasing pain swelling redness and drainage concerning for wound infection. on today's evaluation that is 08/16/2022 the patient remains to be afebrile, the patient denies having any chest pain or shortness of breath or cough no nausea vomiting no abdominal pain no diarrhea pain to the 90s currently controlled Objective - Vital Signs Vital signs: Vital Signs Temp 98.1 F 08/17/22 04:07 Pulse 52 L 08/17/22 09:34 Resp 18 08/17/22 04:07 BP 109/71 08/17/22 09:34 Pulse Ox 99 08/17/22 04:07 FiO2 Intake & Output 08/16/22 08/17/22 08/17/22 18:59 06:59 18:59 Intake Total 1300 690 Balance 1300 690 Intake: Intake, IV Titration 100 100 Amount Cefepime 2 gm In Sodium 100 100 Chloride 0.9% 100 ml @ 200 mls/hr IVPB Q12H [facility] Rx#:[id number] Oral 1200 590 Other: # Voids 3 2 - Exam GENERAL DESCRIPTION: An elderly male lying in bed in no distress RESPIRATORY SYSTEM: Unlabored breathing , decreased breath sounds at bases HEART: S1 S2 regular rate and rhythm , ABDOMEN: Soft , no tenderness EXTREMITIES: Right anterior knee wound 2 with slough tissue minimal surrounding swelling - Labs CBC & Chem 7: 08/16/22 07:17 08/17/22 06:02 Labs: Abnormal Lab Results - Last 24 Hours (Table) 08/16/22 Range/Units 07:17 RBC 3.95 L (4.40-5.60) X 10*6/uL MCV 102.3 H (80.0-97.0) fL MCH 33.2 H (27.0-32.0) pg Monocytes # 1.32 H (0.20-1.00) X 10*3/uL Eosinophils # 0.37 H (0.04-0.35) X 10*3/uL Microbiology - Last 24 Hours (Table) 08/14/22 15:56 Anaerobic Culture - Final Knee - Right 08/14/22 15:56 Gram Stain - Preliminary Knee - Right Tissue Culture - Preliminary Morganella morganii Gram Neg Bacilli Gram Neg Bacilli#2 Coagulase Negative Staph 08/12/22 11:50 Blood Culture - Preliminary Blood No Growth after 96 hours 08/12/22 11:40 Blood Culture - Preliminary Blood No Growth after 96 hours Assessment and Plan (1) Unspecified open wound, right knee, subsequent encounter Current Visit: Yes Status: Acute Code(s): S81.001D - UNSPECIFIED OPEN WOUND, RIGHT KNEE, SUBSEQUENT ENCOUNTER SNOMED Code(s): 96617768267045623 (2) Cellulitis of right knee Current Visit: No Status: Acute Code(s): L03.115 - CELLULITIS OF RIGHT LOWER LIMB SNOMED Code(s): 19480312966264006 Plan: 1patient with a nonhealing wound to the right knee areas started with a trauma now presented to hospital with worsening concerning for wound infection and secondary cellulitis will need to cover for both gram-positive as well as gram- negative pathogen. 2Patient is status post surgical debridement and deep cultures which are Currently growing Morganella along with anaerobes, patient is covered with cefepime we will add Flagyl local care to continue as ordered and monitor cl inical course closely Time with Patient: Less than 30
--- NOTE | 2022-08-18 07:46 | P.PN ---
Subjective Progress Note Date: 08/17/22 Principal diagnosis: Right knee wound infection Patient is a 67 year old male with a history of right knee wound traumatic presenting to the hospital with increasing pain swelling redness and drainage concerning for wound infection. on today's evaluation that is 08/17/2022 the patient remains to be afebrile, patient is breathing comfortably He denies having any chest pain or shortness with or cough no nausea vomiting abdominal pain pain to the right knee wound is currently controlled Objective - Vital Signs Vital signs: Vital Signs Temp 98.3 F 08/17/22 11:31 Pulse 53 L 08/17/22 11:31 Resp 18 08/17/22 11:31 BP 120/76 08/17/22 11:31 Pulse Ox 96 08/17/22 11:31 FiO2 Intake & Output 08/16/22 08/17/22 08/17/22 18:59 06:59 18:59 Intake Total 1300 690 Balance 1300 690 Intake: Intake, IV Titration 100 100 Amount Cefepime 2 gm In Sodium 100 100 Chloride 0.9% 100 ml @ 200 mls/hr IVPB Q12H [facility] Rx#:[id number] Oral 1200 590 Other: # Voids 3 2 - Exam GENERAL DESCRIPTION: An elderly male lying in bed in no distress RESPIRATORY SYSTEM: Unlabored breathing , decreased breath sounds at bases HEART: S1 S2 regular rate and rhythm , ABDOMEN: Soft , no tenderness EXTREMITIES: Right anterior knee wound looks deep with minimal slough tissue surrounding swelling redness is improved there is no drainage - Labs CBC & Chem 7: 08/16/22 07:17 08/17/22 06:02 Labs: Microbiology - Last 24 Hours (Table) 08/14/22 15:56 Anaerobic Culture - Final Knee - Right 08/14/22 15:56 Gram Stain - Preliminary Knee - Right Tissue Culture - Preliminary Morganella morganii Gram Neg Bacilli Gram Neg Bacilli#2 Coagulase Negative Staph 08/12/22 11:50 Blood Culture - Preliminary Blood No Growth after 96 hours 08/12/22 11:40 Blood Culture - Preliminary Blood No Growth after 96 hours Assessment and Plan (1) Unspecified open wound, right knee, subsequent encounter Current Visit: Yes Status: Acute Code(s): S81.001D - UNSPECIFIED OPEN WOUND, RIGHT KNEE, SUBSEQUENT ENCOUNTER SNOMED Code(s): 18120698434072053 (2) Cellulitis of right knee Current Visit: No Status: Acute Code(s): L03.115 - CELLULITIS OF RIGHT LOWER LIMB SNOMED Code(s): 06050476782294023 Plan: 1patient with a nonhealing wound to the right knee areas started with a trauma now presented to hospital with worsening concerning for wound infection and secondary cellulitis will need to cover for both gram-positive as well as gram- negative pathogen. 2Patient is status post surgical debridement and deep cultures which are Currently growing Morganella along with anaerobes, , Patient to continue with cefepime and Flagyl plan to finish therapy with oral Cipro and Flagyl x2 weeks local wound care with a wound VAC and a close outpatient follow-up Time with Patient: Less than 30
[2022-08-18] MEDS ORDERED: METOPROLOL SUCCINATE (ER) 25 MG TAB.ER.24H PO SCH (09:00)
[2022-08-18] MEDS: amLODIPine 10 MG TAB PO SCH (10:42)
[2022-08-18] MEDS: MULTIVITAMINS, THERA 1 EACH TAB PO SCH (10:42)
[2022-08-18] MEDS: lisinopriL 20 MG TAB PO SCH (10:44)
[2022-08-18] MEDS: metroNIDAZOLE 500 MG TAB PO SCH (10:45)
[2022-08-18] MEDS: COLLAGENASE 250 UNIT/GM OINTMENT 30 GM TUBE TOPICAL SCH (12:11)
[2022-08-18 12:42] VITALS: BP 136/82; PULSE 57; RESP 16; TEMP 97.3
--- NOTE | 2022-08-18 13:19 | P.PCN ---
Operative Findings: 67-year-old gentleman trauma to the knee with there are wound debridement base of the wound is granulating today dressing change with Santyl cream continue the IV antibiotic Santyl cream daily
== END 2022-08-18 16:49 | disposition home health service (06) | DRG 902 ==
LOC: EC 11:13 → 5NMEDONC 14:45
PROVIDERS: ADMIT Internal Medicine; ATTEND Internal Medicine
PROC: 0JBN0ZZ Excision of Right Lower Leg Subcutaneous Tissue and Fascia, Open Approach (ICD-10-PCS; principal; 2022-08-14)
PROC: 0JBN0ZZ Excision of Right Lower Leg Subcutaneous Tissue and Fascia, Open Approach (ICD-10-PCS; 2022-08-18)
DX: T81.33XA Disruption of traumatic injury wound repair, initial encounter (principal); L03.115 Cellulitis of right lower limb; B96.89 Other specified bacterial agents as the cause of diseases classified elsewhere; L08.89 Other specified local infections of the skin and subcutaneous tissue; I10 Essential (primary) hypertension; Y84.8 Other medical procedures as the cause of abnormal reaction of the patient, or of later complication, without mention of misadventure at the time of the procedure; F17.210 Nicotine dependence, cigarettes, uncomplicated; Z79.899 Other long term (current) drug therapy
CPT/HCPCS: 36415; 80048; 80053; 82565; 84145; 85025; 85652; 86140; 87040; 87070; 87075; 87077; 87186; 87205; 96360; 96361; 99284

== ENCOUNTER 2023-08-05 10:29 | Emergency (ER) | payer MEDICARE, OTHER ==
--- NOTE | 2023-08-05 10:44 | ED ---
Fall HPI - General Chief Complaint: Fall Stated Complaint: fall/ left wrist injury Time Seen by Provider: 08/05/23 10:38 Source: patient, RN notes reviewed Mode of arrival: ambulatory Limitations: no limitations - History of Present Illness Initial Comments: 68-year-old male presents emergency Department with chief complaint of left wrist injury. Patient states he had trip and fall 3 days ago no other injuries other than his left wrist sutures pain, swelling and bruising noted he has not had much improvement. No prior fractures no paresthesias. - Related Data Home Medications Medication Instructions Recorded Confirmed Multivitamins, Thera [Multivitamin 1 tab PO DAILY 07/13/22 08/12/22 (formulary)] amLODIPine BESYLATE/BENAZEPRIL 1 cap PO DAILY 07/13/22 08/12/22 [Lotrel 10-20 mg Capsule] Previous Rx's Medication Instructions Recorded Acetaminophen Tab [Tylenol] 650 mg PO Q6HR PRN tab 08/18/22 Ciprofloxacin HCl [Cipro] 500 mg PO Q12HR 14 Days #28 tab 08/18/22 Collagenase [Santyl Ointment] 1 applic TOPICAL DAILY 7 Days #30 08/18/22 gm HYDROcodone/APAP 5-325MG [[place] 1 each PO Q6HR PRN 3 Days #12 tab 08/18/22 5-325] Metoprolol Succinate (ER) [Toprol 25 mg PO DAILY #30 tab 08/18/22 XL] metroNIDAZOLE [Flagyl] 500 mg PO TID #42 tab 08/18/22 Allergies Allergy/AdvReac Type Severity Reaction Status Date / Time No Known Allergies Allergy Verified 08/05/23 10:36 Review of Systems ROS Statement: Those systems with pertinent positive or pertinent negative responses have been documented in the HPI. ROS Other: All systems not noted in ROS Statement are negative. Past Medical History Past Medical History: Hypertension History of Any Multi-Drug Resistant Organisms: None Reported Past Surgical History: Orthopedic Surgery Additional Past Surgical History / Comment(s): torn rotator cuff, left arm surgery, "something done to knees" Past Anesthesia/Blood Transfusion Reactions: No Reported Reaction Past Psychological History: No Psychological Hx Reported Smoking Status: Current every day smoker Past Alcohol Use History: Daily Past Drug Use History: None Reported, Marijuana General Exam Limitations: no limitations General appearance: alert, in no apparent distress Head exam: Present: atraumatic, normocephalic, normal inspection Respiratory exam: Present: normal lung sounds bilaterally. Absent: respiratory distress, wheezes, rales, rhonchi, stridor Cardiovascular Exam: Present: regular rate, normal rhythm, normal heart sounds. Absent: systolic murmur, diastolic murmur, rubs, gallop, clicks Extremities exam: Present: other (Left wrist there is swelling, ecchymosis and pain palpation neurovascular intact no proximal forearm tenderness) Course Vital Signs 08/05/23 08/05/23 10:33 11:51 Temperature 98.2 F 98.1 F Pulse Rate 74 66 Respiratory 16 18 Rate Blood Pressure 130/85 142/89 O2 Sat by Pulse 97 95 Oximetry Procedures - Orthopedic Splinting/Casting Injury #1 Side: left Upper Extremity Injury Location: short arm, wrist Upper Extremity Immobilizer: posterior splint, synthetic pre-padded splint Medical Decision Making - Medical Decision Making Was pt. sent in by a medical professional or institution (, PA, MANAGER FITNESS, urgent care, hospital, or [facility]...) When possible be specific @ -No Did you speak to anyone other than the patient for history (EMS, parent, family, police, friend...)? What history was obtained from this source @ -No Did you review nursing and triage notes (agree or disagree)? Why? @ -I reviewed and agree with nursing and triage notes Were old charts reviewed (outside hosp., previous admission, EMS record, old EKG, old radiological studies, urgent care reports/EKG's, [facility] records)? Report findings @ -No old charts were reviewed Differential Diagnosis (chest pain, altered mental status, abdominal pain women, abdominal pain men, vaginal bleeding, weakness, fever, dyspnea, syncope, headache, dizziness, GI bleed, back pain, seizure, CVA, palpatations, mental he alth, musculoskeletal)? @ -. Wrist sprain Wrist fracture EKG interpreted by me (3pts min.). @ -None X-rays interpreted by me (1pt min.). @ -X-ray left wrist shows distal radius fracture CT interpreted by me (1pt min.). @ -None done U/S interpreted by me (1pt. min.). @ -None done What testing was considered but not performed or refused? (CT, X-rays, U/S, labs)? Why? @ -None What meds were considered but not given or refused? Why? @ -None Did you discuss the management of the patient with other professionals (professionals i.e. , PA, MANAGER [employer], lab, RT, psych nurse, social insurance analyst, forest logistics manager, teacher, custody officer, embedded case manager)? Give summary @ -No Was smoking cessation discussed for >3mins.? @ -No Was critical care preformed (if so, how long)? @ -No Were there social determinants of health that impacted care today? How? (Homelessness, low income, unemployed, alcoholism, drug addiction, transportation, low edu. Level, literacy, decrease access to med. care, prison, rehab)? @ -No Was there de-escalation of care discussed even if they declined (Discuss DNR or withdrawal of care, Hospice)? DNR status @ -No What co-morbidities impacted this encounter? (DM, HTN, Smoking, COPD, CAD, Cancer, CVA, ARF, Chemo, Hep., AIDS, mental health diagnosis, sleep apnea, morbid obesity)? @ -None Was patient admitted / discharged? Hospital course, mention meds given and route, prescriptions, significant lab abnormalities, going to OR and other pertinent info. @ -Discharged patient was splinted and will follow-up with orthopedics for distal radius fracture left Undiagnosed new problem with uncertain prognosis? @ -No Drug Therapy requiring intensive monitoring for toxicity (Heparin, Nitro, Insulin, Cardizem)? @ -No Were any procedures done? @ -[Splinting Diagnosis/symptom? @ -[Left distal radius fracture Acute, or Chronic, or Acute on Chronic? @ -Acute Uncomplicated (without systemic symptoms) or Complicated (systemic symptoms)? @ -Uncomplicated Side effects of treatment? @ -No Exacerbation, Progression, or Severe Exacerbation? @ -No Poses a threat to life or bodily function? How? (Chest pain, USA, CT, pneumonia, PE, COPD, DKA, ARF, appy, cholecystitis, CVA, Diverticulitis, Homicidal, Suicidal, threat to staff... and all critical care pts) @ -No Disposition Clinical Impression: Fall, Fracture of left distal radius Disposition: HOME SELF-CARE Condition: Stable Instructions (If sedation given, give patient instructions): Arm Fracture in Adults (ED) Additional Instructions: Please return to the Emergency Department if symptoms worsen or any other concerns. Is patient prescribed a controlled substance at d/c from ED?: No Referrals: Guido Flores DO [Primary Care Provider] - 1-2 days Tawnya Leos DO [Doctor of Osteopathic Medicine] - 1-2 days Time of Disposition: 11:55
--- NOTE | 2023-08-05 11:37 | XR ---
EXAMINATION TYPE: XR wrist complete LT DATE OF EXAM: 08/05/2023 CLINICAL HISTORY: pain TECHNIQUE: Frontal, lateral and oblique images of the left wrist are obtained. COMPARISON: None. FINDINGS: There is an impacted distal radial fracture with mild comminution noted and fracture compon ent extending into the joint space. No additional acute fracture seen within the field of view. Displ acement dorsally of approximately 2 mm. Soft tissue swelling seen. Plate fixation distal left ulna. IMPRESSION: Distal radial fracture as discussed.
[2023-08-05 12:00] VITALS: BP 142/89; PULSE 66; RESP 18; TEMP 98.1
== END 2023-08-05 12:24 | disposition home or self-care (01) ==
LOC: EC 10:29
DX: S52.502A Unspecified fracture of the lower end of left radius, initial encounter for closed fracture (principal); I10 Essential (primary) hypertension; F17.200 Nicotine dependence, unspecified, uncomplicated; W01.0XXA Fall on same level from slipping, tripping and stumbling without subsequent striking against object, initial encounter
CPT/HCPCS: 29125; 99284

== ENCOUNTER 2025-01-12 15:21 | Observation (INO) | payer MEDICARE, OTHER ==
--- NOTE | 2025-01-12 16:03 | ED ---
General Adult HPI - General Source: patient, family, RN notes reviewed Mode of arrival: ambulatory Limitations: no limitations <Roya Lewis - Last Filed: 01/12/25 16:02> - General Source: patient, family, RN notes reviewed, old records reviewed Mode of arrival: ambulatory Limitations: no limitations - History of Present Illness -: days(s) Location: chest Radiation: non-radiation Consistency: constant Improves with: none Worsens with: none Associated Symptoms: loss of appetite, malaise, nausea/vomiting, shortness of breath, weakness Treatments Prior to Arrival: none <Wesley Caraballo - Last Filed: 01/16/25 13:46> - General Chief complaint: Extremity Problem,Nontraumatic Stated complaint: abdominal pain, bloating, weak Time Seen by Provider: 01/12/25 15:38 - History of Present Illness Initial comments: Quick [id number] male presenting with complaints of generalized weakness and fatigue that has been worsening over the past 2 months. Endorses abdominal distention and lower extremity edema. States he has had a decrease in appetite and has been feeling intermittently dizzy. Denies chest pain or difficulty breathing. (Roya Lewis) This is a 69 male to ER for weakness and fatigue increasing weakness and fatigue with abdominal distention lower extremity edema overall weight gain at times feels he cannot take a deep breath or he does have shortness of breath especially with exertion. History of daily drinking (Wesley Caraballo) - Related Data Home Medications Medication Instructions Recorded Confirmed amLODIPine BESYLATE/BENAZEPRIL 1 cap PO DAILY 07/13/22 01/12/25 [Lotrel 10-20 mg Capsule] Previous Rx's Medication Instructions Recorded Metoprolol Succinate (ER) [Toprol 25 mg PO DAILY #30 tab 08/18/22 XL] Allergies Allergy/AdvReac Type Severity Reaction Status Date / Time No Known Allergies Allergy Verified 01/12/25 19:46 Review of Systems ROS Other: All systems not noted in ROS Statement are negative. <Roya Lewis - Last Filed: 01/12/25 16:02> ROS Other: All systems not noted in ROS Statement are negative. <Wesley Caraballo - Last Filed: 01/16/25 13:46> ROS Statement: Those systems with pertinent positive or pertinent negative responses have been documented in the HPI. Past Medical History Past Medical History: Hypertension History of Any Multi-Drug Resistant Organisms: None Reported Past Surgical History: Orthopedic Surgery Additional Past Surgical History / Comment(s): torn rotator cuff, left arm surgery, "something done to knees" Past Anesthesia/Blood Transfusion Reactions: No Reported Reaction Past Psychological History: No Psychological Hx Reported Smoking Status: Current every day smoker Past Alcohol Use History: Daily Past Drug Use History: None Reported, Marijuana <Roya Lewis - Last Filed: 01/12/25 16:02> General Exam Limitations: no limitations <Roya Lewis - Last Filed: 01/12/25 16:02> Limitations: altered mental status (Jaundice) General appearance: alert, in no apparent distress, obese Head exam: Present: atraumatic, normocephalic, normal inspection Eye exam: Present: normal appearance, PERRL, EOMI. Absent: scleral icterus, conjunctival injection, periorbital swelling ENT exam: Present: normal exam, mucous membranes moist Neck exam: Present: normal inspection. Absent: tenderness, meningismus, lymphadenopathy Respiratory exam: Present: normal lung sounds bilaterally. Absent: respiratory distress, wheezes, rales, rhonchi, stridor Cardiovascular Exam: Present: regular rate, normal rhythm, normal heart sounds. Absent: systolic murmur, diastolic murmur, rubs, gallop, clicks GI/Abdominal exam: Present: soft, distended, normal bowel sounds. Absent: tenderness, guarding, rebound, rigid Extremities exam: Present: normal inspection, full ROM, normal capillary refill. Absent: tenderness, pedal edema, joint swelling, calf tenderness Back exam: Present: normal inspection Neurological exam: Present: alert, oriented X3, CN II-XII intact Psychiatric exam: Present: normal affect, normal mood Skin exam: Present: warm, dry, intact, normal color. Absent: rash <Wesley Caraballo - Last Filed: 01/16/25 13:46> - General Exam Comments Initial Comments: Visual Physical Exam Vital signs reviewed General: Well-appearing, nontoxic, no acute distress. Head: Normocephalic, atraumatic Eyes: PERRLA, EOMI ENT: Airway patent Chest: Nonlabored breathing Skin: No visual rash, normal skin tone Neuro: Alert and oriented 3 Musculoskeletal: No gross abnormalities (Stieler,Roya) Course <Wesley Caraballo - Last Filed: 01/16/25 13:46> Vital Signs 01/12/25 01/12/25 01/12/25 15:45 16:27 18:00 Temperature 98 F Pulse Rate 61 57 L 76 Pulse Rate [ Pulse Oximetery ] Respiratory 17 22 14 Rate Blood Pressure 82/58 98/63 102/69 Blood Pressure [Left Arm] O2 Sat by Pulse 96 97 94 L Oximetry 01/12/25 01/12/25 20:35 21:35 Temperature 97.5 F L Pulse Rate 87 Pulse Rate [ 82 Pulse Oximetery ] Respiratory 18 14 Rate Blood Pressure 100/70 Blood Pressure 99/67 [Left Arm] O2 Sat by Pulse 97 94 L Oximetry - Reevaluation(s) Reevaluation #1: 01/12/25 20:21 Records reviewed (Wesley Caraballo) Reevaluation #2: 01/12/25 20:22 Patient has no real change in symptoms here in the ER (Wesley Caraballo) Reevaluation #3: 01/12/25 20:22 Patient is informed of results and questions answered (Wesley Caraballo) Reevaluation #4: Was pt. sent in by a medical professional or institution (, PA, ON SITE WASTEWATER SYSTEMS TECHNICIAN, urgent care, hospital, or retirement...) When possible be specific @ -no Did you speak to anyone other than the patient for history (EMS, parent, family, police, friend...)? What history was obtained from this source @ -no Did you review nursing and triage notes (agree or disagree)? Why? @ -agree Are old charts reviewed (outside hosp., previous admission, EMS record, old EKG, old radiological studies, urgent care reports/EKG's, retirement records)? Report findings @ -yes Differential Diagnosis (chest pain, altered mental status, abdominal pain women, abdominal pain men, vaginal bleeding, weakness, fever, dyspnea, syncope, h eadache, dizziness, GI bleed, back pain, seizure, CVA, palpatations, mental health, musculoskeletal)? @ -prior EKG interpreted by me (3pts min.). @ -yes X-rays interpreted by me (1pt min.). @ -yes negative for acute disease CT interpreted by me (1pt min.). @ -no U/S interpreted by me (1pt. min.). @ -no What testing was considered but not performed or refused? (CT, X-rays, U/S, labs)? Why? @ -none What meds were considered but not given or refused? Why? @ -none Did you discuss the management of the patient with other professionals (professionals i.e. Dr., PA, ON SITE WASTEWATER SYSTEMS TECHNICIAN, lab, RT, psych nurse, social media intern, dietetic assistant, teacher, chief green officer, field case manager)? Give summary @ -no Was smoking cessation discussed for >3mins.? @ -no Was critical care preformed (if so, how long)? @ -no Were there social determinants of health that impacted care today? How? (Homelessness, low income, unemployed, alcoholism, drug addiction, transportation, low edu. Level, literacy, decrease access to med. care, usp, rehab)? @ -none Was there de-escalation of care discussed even if they declined (Discuss DNR or withdrawal of care, Hospice)? DNR status @ -no What co-morbidities impacted this encounter? (DM, HTN, Smoking, COPD, CAD, Cancer, CVA, ARF, Chemo, Hep., AIDS, mental health diagnosis, sleep apnea, morbid obesity)? @ -none Was patient admitted / discharged? Hospital course, mention meds given and route, prescriptions, significant lab abnormalities, going to OR and other pertinent info. @ - 69 male to the ER for evaluation patient coming in for alcoholic cirrhosis. Patient admitted for [facility] protocol ascitic fluid drainage and further evaluation and monitoring to follow-up with GI next week Admitted ascites with alcoholic cirrhosis Undiagnosed new problem with uncertain prognosis? @ -no Drug Therapy requiring intensive monitoring for toxicity (Heparin, Nitro, Insulin, Cardizem)? @ -no Were any procedures done? @ -no Diagnosis/symptom? @ - Acute, or Chronic, or Acute on Chronic? @ -Acute Uncomplicated (without systemic symptoms) or Complicated (systemic symptoms)? @ -Complicated Side effects of treatment? @ -no Exacerbation, Progression, or Severe Exacerbation? @ -exacerbation Poses a threat to life or bodily function? How? (Chest pain, [place], [place], pneumonia, PE, COPD, DKA, ARF, appy, cholecystitis, CVA, Diverticulitis, Homicidal, Suicidal, threat to staff... and all critical care pts) @ -yes significant liver disease (Wesley Caraballo) Reevaluation #5: Differential Abdominal Pain Men: Appendicitis, cholecystitis, diverticulosis, ischemic bowel, pancreatitis, hepatitis, UTI, gastroenteritis, AAA, incarcerated hernia, bowel obstruction, constipation, inflammatory bowel, hepatitis, peptic ulcer disease, splenic infarction, perforated viscus, testicular torsion, this is not meant to be an all-inclusive list (Wesley Caraballo) - Consultations Consultation #1: Spoke with [facility] who agrees to admit this patient (Wesley Caraballo) EKG Findings - EKG Comments: EKG Findings:: EKG is bradycardia 56 QRS 78 QTc 447 - EKG Results: EKG: interpreted by ERMD <Wesley Caraballo - Last Filed: 01/16/25 13:46> Medical Decision Making <Roya Lewis - Last Filed: 01/12/25 16:02> - Lab Data Result diagrams: 01/16/25 05:20 01/16/25 05:20 - EKG Data -: EKG Interpreted by La - Radiology Data Radiology results: report reviewed (Chest x-ray reviewed is negative for acute disease), image reviewed <Wesley Caraballo - Last Filed: 01/16/25 13:46> - Medical Decision Making I completed the quick note portion of this chart signed Roya Lewis PA-C (Roya Lewis) 69 male to the ER for evaluation patient coming in for alcoholic cirrhosis. Patient admitted for CIWA protocol ascitic fluid drainage and further evaluation and monitoring to follow-up with GI next week (Wesley Caraballo) - Lab Data Lab Results 01/12/25 01/12/25 01/12/25 Range/Units 16:41 16:41 16:41 WBC 13.0 H (3.8-10.6) k/uL RBC 2.85 L (4.30-5.90) m/uL Hgb 10.0 L (13.0-17.5) gm/dL Hct 32.6 L (39.0-53.0) % MCV 114.3 H (80.0-100.0) fL MCH 35.2 H (25.0-35.0) pg MCHC 30.8 L (31.0-37.0) g/dL RDW 19.6 H (11.5-15.5) % Plt Count 202 (150-450) k/uL MPV 9.9 Neutrophils % (Manual) 75 % Lymphocytes % (Manual) 16 % Monocytes % (Manual) 9 % Eosinophils % (Manual) 1 % Neutrophils # (Manual) 9.75 H (1.3-7.7) k/uL Lymphocytes # (Manual) 2.08 (1.0-4.8) k/uL Monocytes # (Manual) 1.17 H (0-1.0) k/uL Eosinophils # (Manual) 0.13 (0-0.7) k/uL Nucleated RBCs 2 H (0-0) /100 WBC Manual Slide Review Performed Hypochromasia Marked Anisocytosis Slight Macrocytosis Marked A Target Cells Present PT (10.0-12.5) sec INR (<1.2) APTT (22.0-30.0) sec Sodium 136 L (137-145) mmol/L Potassium 3.7 (3.5-5.1) mmol/L Chloride 100 (98-107) mmol/L Carbon Dioxide 16 L (22-30) mmol/L Anion Gap 20 mmol/L BUN 27 H (9-20) mg/dL Creatinine 1.86 H (0.66-1.25) mg/dL Est GFR (CKD-EPI)AfAm 42 (>60 ml/min/1.73 sqM) Est GFR (CKD-EPI)NonAf 37 (>60 ml/min/1.73 sqM) Glucose 112 H (74-99) mg/dL Calcium 7.8 L (8.4-10.2) mg/dL Magnesium 1.4 L (1.6-2.3) mg/dL Total Bilirubin 5.3 H (0.2-1.3) mg/dL AST 236 H (17-59) U/L ALT 61 H (4-49) U/L Alkaline Phosphatase 234 H (38-126) U/L Troponin I <0.012 (0.000-0.034) ng/mL NT-Pro-B Natriuret Pep 1230 pg/mL Total Protein 7.3 (6.3-8.2) g/dL Albumin 3.2 L (3.5-5.0) g/dL 01/12/25 Range/Units 16:41 WBC (3.8-10.6) k/uL RBC (4.30-5.90) m/uL Hgb (13.0-17.5) gm/dL Hct (39.0-53.0) % MCV (80.0-100.0) fL MCH (25.0-35.0) pg MCHC (31.0-37.0) g/dL RDW (11.5-15.5) % Plt Count (150-450) k/uL MPV Neutrophils % (Manual) % Lymphocytes % (Manual) % Monocytes % (Manual) % Eosinophils % (Manual) % Neutrophils # (Manual) (1.3-7.7) k/uL Lymphocytes # (Manual) (1.0-4.8) k/uL Monocytes # (Manual) (0-1.0) k/uL Eosinophils # (Manual) (0-0.7) k/uL Nucleated RBCs (0-0) /100 WBC Manual Slide Review Hypochromasia Anisocytosis Macrocytosis Target Cells PT 14.2 H (10.0-12.5) sec INR 1.3 H (<1.2) APTT 26.9 (22.0-30.0) sec Sodium (137-145) mmol/L Potassium (3.5-5.1) mmol/L Chloride (98-107) mmol/L Carbon Dioxide (22-30) mmol/L Anion Gap mmol/L BUN (9-20) mg/dL Creatinine (0.66-1.25) mg/dL Est GFR (CKD-EPI)AfAm (>60 ml/min/1.73 sqM) Est GFR (CKD-EPI)NonAf (>60 ml/min/1.73 sqM) Glucose (74-99) mg/dL Calcium (8.4-10.2) mg/dL Magnesium (1.6-2.3) mg/dL Total Bilirubin (0.2-1.3) mg/dL AST (17-59) U/L ALT (4-49) U/L Alkaline Phosphatase (38-126) U/L Troponin I (0.000-0.034) ng/mL NT-Pro-B Natriuret Pep pg/mL Total Protein (6.3-8.2) g/dL Albumin (3.5-5.0) g/dL Disposition <Roya Lewis - Last Filed: 01/12/25 16:02> Is patient prescribed a controlled substance at d/c from ED?: No Time of Disposition: 20:20 <Wesley Caraballo - Last Filed: 01/16/25 13:46> Clinical Impression: Alcoholic cirrhosis, Ascites Disposition: ADMITTED IP TO THIS HOSP Condition: Stable
--- NOTE | 2025-01-12 16:22 | XR ---
EXAMINATION TYPE: XR chest 2V DATE OF EXAM: 01/12/2025 CLINICAL INDICATION: Male, 69 years old with history of weakness, TECHNIQUE: Frontal and lateral views of the chest are obtained. COMPARISON: CT July 02, 2022 FINDINGS: There is no focal air space opacity, pleural effusion, or pneumothorax seen. The cardiac silhouette size is upper limits of normal. The osseous structures are intact. IMPRESSION: No acute cardiopulmonary process. [facility], , 01/12/2025 4:20 PM
[2025-01-12 16:53] LABS: Anisocytosis Slight; HCT 32.6 % (39.0-53.0); Hypochromasia Marked; MCH 35.2 pg (25.0-35.0); MCHC 30.8 g/dL (31.0-37.0); MCV 114.3 fL (80.0-100.0); Macrocytosis Marked; Mean Platelet Volume 9.9; Platelet Count 202 k/uL (150-450); RBC 2.85 m/uL (4.30-5.90); RDW 19.6 % (11.5-15.5)
[2025-01-12 17:03] LABS: INR 1.3 (<1.2); Partial Thromboplastin Time 26.9 sec (22.0-30.0); Prothrombin Time 14.2 sec (10.0-12.5)
[2025-01-12 17:08] LABS: ALT 61 U/L (4-49); AST 236 U/L (17-59); African American GFR (CKD) 42 (>60 ml/min/1.73 sqM); Albumin 3.2 g/dL (3.5-5.0); Alkaline Phosphatase 234 U/L (38-126); Anion Gap 20 mmol/L; Blood Urea Nitrogen 27 mg/dL (9-20); Calcium 7.8 mg/dL (8.4-10.2); Carbon Dioxide 16 mmol/L (22-30); Chloride 100 mmol/L (98-107); Glucose 112 mg/dL (74-99); Magnesium 1.4 mg/dL (1.6-2.3); Non-African American GFR(CKD) 37 (>60 ml/min/1.73 sqM); Potassium 3.7 mmol/L (3.5-5.1); Sodium 136 mmol/L (137-145); Total Bilirubin 5.3 mg/dL (0.2-1.3); Total Protein 7.3 g/dL (6.3-8.2)
[2025-01-12 17:16] LABS: NT-Pro-B-Type Natriuretic Pept 1230 pg/mL
[2025-01-12 17:36] LABS: Eosinophils # (M) 0.13 k/uL (0-0.7); Lymphocytes # (M) 2.08 k/uL (1.0-4.8); Monocytes # (M) 1.17 k/uL (0-1.0); Neutrophils # (M) 9.75 k/uL (1.3-7.7); Neutrophils % (M) 75 %; Nucleated Red Blood Cells 2 /100 WBC (0-0); Total Cells Counted 200
[2025-01-12 17:37] LABS: Target Cells Present
[2025-01-12] MEDS ORDERED: NALOXONE 0.4 MG/ML 1 ML VIAL IV PRN (20:03)
[2025-01-12] MEDS ORDERED: ONDANSETRON 4 MG/2 ML VIAL IVP PRN (20:09)
[2025-01-12] MEDS ORDERED: LORazepam 2 MG/ML INJ IV PRN ×3 (20:12)
[2025-01-12] MEDS ORDERED: chlordiazePOXIDE 25 MG CAP PO PRN ×4 (20:12)
[2025-01-12] MEDS ORDERED: LORazepam 1 MG TAB PO PRN ×2 (20:12)
[2025-01-12] MEDS: SODIUM CHLORIDE 0.9% 1,000 ML IV SCH (20:38)
[2025-01-12 21:20] LABS: Influenza A Not Detected (Not Detectd); Influenza B Not Detected (Not Detectd); RSV Not Detected (Not Detectd)
[2025-01-12 22:21] LABS: Appearance,Urine Cloudy (Clear); Bacteria,Urine Rare /hpf; Bilirubin,Urine 1+ (Negative); Blood,Urine Negative (Negative); Color,Urine Dark Yellow; Glucose,Urine (UA) Negative (Negative); Hyaline Casts,Urine 50 /lpf (0-2); Ketones,Urine Negative (Negative); Leukocyte Esterase,Urine Negative (Negative); Mucus,Urine Occasional /hpf; Nitrite,Urine Negative (Negative); Protein,Urine Trace (Negative); RBC,Urine <1 /hpf (0-5); Specific Gravity,Urine 1.014 (1.001-1.035); Squamous Epithelial Cell,Urine 1 /hpf (0-4); WBC,Urine 3 /hpf (0-5)
[2025-01-12] MEDS: LORazepam 0.5 MG TAB PO PRN (22:34)
[2025-01-12] MEDS ORDERED: LORazepam 1 MG/0.5 ML VIAL IV PRN (23:58)
[2025-01-13] MEDS ORDERED: LORazepam 1 MG/0.5 ML VIAL IV PRN ×2
[2025-01-13] MEDS: traMADol 50 MG TAB PO PRN (02:55)
[2025-01-13 07:39] LABS: ALT 58 U/L (4-49); AST 206 U/L (17-59); African American GFR (CKD) 59 (>60 ml/min/1.73 sqM); Albumin 2.8 g/dL (3.5-5.0); Albumin/Globulin Ratio 0.7; Alkaline Phosphatase 200 U/L (38-126); Anion Gap 19 mmol/L; Blood Urea Nitrogen 25 mg/dL (9-20); Calcium 7.8 mg/dL (8.4-10.2); Carbon Dioxide 16 mmol/L (22-30); Chloride 100 mmol/L (98-107); Globulin 3.9 g/dL; Glucose 65 mg/dL (74-99); Magnesium 1.3 mg/dL (1.6-2.3); Non-African American GFR(CKD) 51 (>60 ml/min/1.73 sqM); Phosphorus 4.3 mg/dL (2.5-4.5); Potassium 4.1 mmol/L (3.5-5.1); Sodium 135 mmol/L (137-145); Total Bilirubin 5.6 mg/dL (0.2-1.3); Total Protein 6.7 g/dL (6.3-8.2)
[2025-01-13 07:48] LABS: Anisocytosis Moderate; Basophils # (A) 0.1 k/uL (0-0.2); Basophils % (A) 0 %; Eosinophils # (A) 0.1 k/uL (0-0.7); Eosinophils % (A) 1 %; HCT 29.9 % (39.0-53.0); HGB 9.2 gm/dL (13.0-17.5); Hypochromasia Marked; Lymphocytes # (A) 1.4 k/uL (1.0-4.8); Lymphocytes % (A) 11 %; MCH 36.1 pg (25.0-35.0); MCHC 30.8 g/dL (31.0-37.0); MCV 117.3 fL (80.0-100.0); Macrocytosis Marked; Mean Platelet Volume 12.6; Monocytes # (A) 1.2 k/uL (0-1.0); Monocytes % (A) 9 %; Neutrophils % (A) 78 %; Platelet Count 182 k/uL (150-450); RBC 2.55 m/uL (4.30-5.90); RDW 20.6 % (11.5-15.5); WBC 12.9 k/uL (3.8-10.6)
[2025-01-13] MEDS: MAGNESIUM SULFATE-D5W PMX 1 GM in DEXTROSE/WATER 1 100ML.BAG IVPB ONE ×2 (09:04→15:24)
[2025-01-13] MEDS: THIAMINE 100 MG TAB PO SCH (09:04)
[2025-01-13] MEDS: LORazepam 1 MG TAB PO PRN (09:08)
--- NOTE | 2025-01-13 11:04 | P.HPIM ---
History of Present Illness H&P Date: 01/13/25 Patient is a 61-year-old male with a history of hepatitis C, hypertension, liver cirrhosis presents to the ER with worsening weakness, fatigue and abdominal bloating for the last 2 months. Additionally, patient also endorses swelling in the both legs as well as decrease in appetite and has been feeling dizzy intermittently. Otherwise, he denies any chest pain, shortness of breath, loss of consciousness, fall, numbness tingling in upper or lower extremity. Patient denies diarrhea or constipation, no blood in the stool or tarry colored stool. Patient has no endoscopy done in the past. He does not follow-up with a gastroenterology or artificial breeding distributor. Patient has no previous history of parace ntesis. Of note, patient has been diagnosed with hepatitis C in the past for which he has undergone treatment. Patient is a chronic alcohol drinker. He has been drinking fifth a day for the last 40 years. His last drink was yesterday. Patient also chronic smoker as he smokes 1 pack/day for last 40 years. Initial laboratory evaluation in the ER shows WBC 13.0, hemoglobin 10.0, hematocrit 32.6, MCV 114.3, platelet count 202, PT 14.2, INR 1.3, APTT 26.9, sodium 136, potassium 3.7, chloride 100, BUN 27, creatinine 1.6, glucose 112, calcium 7.8, magnesium 1.4, total bili 5.3, AST 236, ALT 61, ALP 234, albumin 3.2 Subsequent lab work shows WBC 12.9, hemoglobin 9.2, sodium 135, potassium 4.1, BUN 25, creatinine 1.4, magnesium 1.3, total bili 4.6, AST 206, ALT 58, UA shows hyaline cast,. Chest x-ray shows no acute cardiopulmonary process. EKG shows supraventricular ventricular rate of 56 bpm, QRS duration of 78 ms, QTc 447 ms. Poor R wave progression noted. Review of systems: Pertinent positives and negatives as discussed in HPI, a complete review of systems was performed and all other systems are negative. Social history: As above in HPI Physical examination: Vital signs reviewed General: non toxic, no distress, appears at stated age, overweight Derm: no unusual rashes/lesions, warm Head: atraumatic, normocephalic, symmetric Eyes: EOMI, no lid lag, sclera icterus, pupils equal round reactive to light ENT: Nose and ears atraumatic Neck: No cervical lymphadenopathy, trachea midline, supple Mouth: no lip lesion, mucus membranes moist, oral thrush noted. Cardiovascular: S1S2 reg, no murmur, positive dorsalis pedis pulse bilateral, 2+ bilateral pitting edema Lungs: Bilateral expiratory wheezing, no rales or crackles, no accessory muscle use Abdominal: Distended, nontender, fluid wave shift positive, Ext: muscle strength 5 out of 5 in all 4 extremities grossly, no gross muscle atrophy, no contractures, Neuro: CN II-XI grossly intact, no gross focal neuro deficits Psych: Alert, oriented, appropriate affect Assessment/Plan: This is a Patient is a 61-year-old male with a history of hypertension, liver cirrhosis presents to the ER with worsening weakness, fatigue and abdominal bloating for the last 2 months. Case was discussed with the Emergency Room provider and decision was made to admit the patient for abdominal ascites. Labs and imaging: Initial laboratory evaluation in the ER shows WBC 13.0, hemoglobin 10.0, hematocrit 32.6, MCV 114.3, platelet count 202, PT 14.2, INR 1.3, APTT 26.9, sodium 136, potassium 3.7, chloride 100, BUN 27, creatinine 1.6, glucose 112, calcium 7.8, magnesium 1.4, total bili 5.3, AST 236, ALT 61, ALP 234, albumin 3.2, NT proBNP 1230 Subsequent lab work shows WBC 12.9, hemoglobin 9.2, sodium 135, potassium 4.1, BUN 25, creatinine 1.4, magnesium 1.3, total bili 4.6, AST 206, ALT 58, UA shows hyaline cast,. Chest x-ray shows no acute cardiopulmonary process. EKG shows supraventricular ventricular rate of 56 bpm, QRS duration of 78 ms, QTc 447 ms. Poor R wave progression noted. Active: #Abdominal ascites likely secondary to alcoholic liver cirrhosis #Alcohol abuse disorder #Hypomagnesemia MELD score: 22 points with estimated 90-day mortality 7 to 10% Consult interventional radiology for paracentesis Order ascitic fluid analysis workup Consult gastroenterology Consider EGD Continue CIWA protocol Order thiamine 100 mg p.o. daily Order 2 g of IV magnesium Order abdominal ultrasound Order Lasix 40 mg p.o. once daily and spironolactone 50 mg p.o. once daily #Oral thrush Oral nystatin #Macrocytic anemia in setting of alcoholic liver cirrhosis Order vitamin B12 and folate RBC Order iron studies monitor CBC #Nonoliguric KERIY on CKD in the setting of alcoholic liver cirrhosis Monitor CMP #COPD DuoNebs as scheduled and [id number] DVT prophylaxis: SCDs GI prophylaxis: IV Protonix 40 mg daily F: None E: Replete as needed N: Consistent carbohydrate diet A: Ambulatory The patient is admitted with an anticipated more than than 2 midnight stay for evaluation of cirrhotic liver disease CODE STATUS: Full code Discussed with: Patient Anticipated discharge place: Pending clinical course Dictation was produced using [employer] dictation software. Please excuse any grammatical, word or spelling errors. Past Medical History Past Medical History: Hypertension History of Any Multi-Drug Resistant Organisms: None Reported Past Surgical History: Orthopedic Surgery Additional Past Surgical History / Comment(s): torn rotator cuff, left arm surgery, "something done to knees" Past Anesthesia/Blood Transfusion Reactions: No Reported Reaction Past Psychological History: No Psychological Hx Reported Smoking Status: Current every day smoker Past Alcohol Use History: Daily Additional Past Alcohol Use History / Comment(s): pt states he drinks 1 pint of vodka daily Past Drug Use History: None Reported, Marijuana Medications and Allergies Home Medications Medication Instructions Recorded Confirmed Type amLODIPine BESYLATE/BENAZEPRIL 1 cap PO DAILY 07/13/22 01/12/25 History [Lotrel 10-20 mg Capsule] Metoprolol Succinate (ER) [Toprol 25 mg PO DAILY #30 tab 08/18/22 01/12/25 Rx XL] Furosemide [Lasix] 40 mg PO DAILY #30 tab 01/17/25 Rx Lactulose [Cephulac] 20 gm PO DAILY #14 ml 01/17/25 Rx Nystatin 100,000 Unit/ml Susp 5 ml PO QID #40 ml 01/17/25 Rx [Mycostatin Oral Susp] Spironolactone [Aldactone] 50 mg PO DAILY #30 tab 01/17/25 Rx Allergies Allergy/AdvReac Type Severity Reaction Status Date / Time No Known Allergies Allergy Verified 01/12/25 19:46 Physical Exam Vitals: Vital Signs Temp Pulse Pulse Resp BP BP Pulse Ox 01/13/25 02:00 98.6 F 75 16 91/63 92 L 01/12/25 21:35 97.5 F L 82 14 99/67 94 L 01/12/25 20:35 87 18 100/70 97 01/12/25 18:00 76 14 102/69 94 L 01/12/25 16:27 57 L 22 98/63 97 01/12/25 15:45 98 F 61 17 82/58 96 Intake and Output 01/12/25 01/13/25 01/13/25 22:59 06:59 14:59 Intake Total 1190 Balance 1190 Intake: Intake, IV Titration 600 Amount Sodium Chloride 0.9% 1, 600 000 ml @ 75 mls/hr IV . [id number] [facility] Rx#:[id number] Oral 590 Other: Voiding Method Toilet # Voids 1 # Bowel Movements 1 Weight 97.522 kg Results CBC & Chem 7: 01/17/25 04:41 01/17/25 04:41 Labs: Abnormal Lab Results - Last 24 Hours (Table) 01/12/25 01/12/25 01/12/25 Range/Units 16:41 16:41 16:41 WBC 13.0 H (3.8-10.6) k/uL RBC 2.85 L (4.30-5.90) m/uL Hgb 10.0 L (13.0-17.5) gm/dL Hct 32.6 L (39.0-53.0) % MCV 114.3 H (80.0-100.0) fL MCH 35.2 H (25.0-35.0) pg MCHC 30.8 L (31.0-37.0) g/dL RDW 19.6 H (11.5-15.5) % Neutrophils # (Manual) 9.75 H (1.3-7.7) k/uL Monocytes # (Manual) 1.17 H (0-1.0) k/uL Nucleated RBCs 2 H (0-0) /100 WBC Macrocytosis Marked A PT 14.2 H (10.0-12.5) sec INR 1.3 H (<1.2) Sodium 136 L (137-145) mmol/L Carbon Dioxide 16 L (22-30) mmol/L BUN 27 H (9-20) mg/dL Creatinine 1.86 H (0.66-1.25) mg/dL Glucose 112 H (74-99) mg/dL Calcium 7.8 L (8.4-10.2) mg/dL Magnesium 1.4 L (1.6-2.3) mg/dL Total Bilirubin 5.3 H (0.2-1.3) mg/dL AST 236 H (17-59) U/L ALT 61 H (4-49) U/L Alkaline Phosphatase 234 H (38-126) U/L Albumin 3.2 L (3.5-5.0) g/dL Urine Protein (Negative) Urine Bilirubin (Negative) Urine Bacteria (None) /hpf Hyaline Casts (0-2) /lpf Urine Mucus (None) /hpf 01/12/25 01/13/25 Range/Units 21:30 05:48 WBC (3.8-10.6) k/uL RBC (4.30-5.90) m/uL Hgb (13.0-17.5) gm/dL Hct (39.0-53.0) % MCV (80.0-100.0) fL MCH (25.0-35.0) pg MCHC (31.0-37.0) g/dL RDW (11.5-15.5) % Neutrophils # (Manual) (1.3-7.7) k/uL Monocytes # (Manual) (0-1.0) k/uL Nucleated RBCs (0-0) /100 WBC Macrocytosis PT (10.0-12.5) sec INR (<1.2) Sodium 135 L (137-145) mmol/L Carbon Dioxide 16 L (22-30) mmol/L BUN 25 H (9-20) mg/dL Creatinine 1.41 H (0.66-1.25) mg/dL Glucose 65 L (74-99) mg/dL Calcium 7.8 L (8.4-10.2) mg/dL Magnesium 1.3 L (1.6-2.3) mg/dL Total Bilirubin 5.6 H (0.2-1.3) mg/dL AST 206 H (17-59) U/L ALT 58 H (4-49) U/L Alkaline Phosphatase 200 H (38-126) U/L Albumin 2.8 L (3.5-5.0) g/dL Urine Protein Trace H (Negative) Urine Bilirubin 1+ H (Negative) Urine Bacteria Rare H (None) /hpf Hyaline Casts 50 H (0-2) /lpf Urine Mucus Occasional H (None) /hpf Thrombosis Risk Factor Assmnt - Choose All That Apply Any of the Below Risk Factors Present?: Yes Each Factor Represents 1 point: Obesity (BMI >25), Swollen legs (current) Other Risk Factors: Yes Each Risk Factor Represents 2 Points: Age 61-74 years Thrombosis Risk Factor Assessment Total Risk Factor Score: 4 Thrombosis Risk Factor Assessment Level: Moderate Risk Assessment and Plan Assessment: Attestation Attestation/ Clinical Admissions Manager Note: Attestation to History and physical, Participation (I saw and evaluated the patient with the Resident, and I reviewed and discussed the patient with the Resident and agree with the Resident's findings and plans as documented above., management reviewed and discussed), I agree with findings & plan, Provider Signature (ANNAMARIE PIZANO, BRIELLE Duarte Time with Patient: Greater than 30
[2025-01-13] MEDS ORDERED: IPRATROPIUM-ALBUTEROL 3 ML NEB INHALATION PRN (12:06)
--- NOTE | 2025-01-13 13:04 | P.DS ---
Providers Date of admission: 01/12/25 20:12 Attending physician: Rehana Dobbins Primary care physician: Guido Flores Patient Condition at Discharge: Stable Plan - Discharge Summary Discharge Rx Participant: No New Discharge Prescriptions: No Action Metoprolol Succinate (ER) [Toprol XL] 25 mg PO DAILY #30 tab amLODIPine BESYLATE/BENAZEPRIL [Lotrel 10-20 mg Capsule] 1 cap PO DAILY Discharge Medication List amLODIPine BESYLATE/BENAZEPRIL [Lotrel 10-20 mg Capsule] 1 cap PO DAILY 07/13/22 [History] Metoprolol Succinate (ER) [Toprol XL] 25 mg PO DAILY #30 tab 08/18/22 [Rx] Follow up Appointment(s)/Referral(s): Guido Flores DO [Primary Care Provider] - 1-2 days
[2025-01-13] MEDS: PANTOPRAZOLE 40 MG/10 ML VIAL IVP SCH (13:10)
[2025-01-13] MEDS: NYSTATIN 100,000 UNIT/ML SUSP 500,000 UNIT/5 ML CUP PO SCH (13:10)
--- NOTE | 2025-01-13 14:30 | US ---
EXAMINATION TYPE: US abdomen complete DATE OF EXAM: 01/13/2025 COMPARISON: CT CLINICAL INDICATION: Male, 69 years old with history of Abdominal distension, Hx of liver cirrhosis; Distension, cirrhosis TECHNIQUE: Grayscale and color Doppler imaging of the abdomen was performed. FINDINGS: EXAM MEASUREMENTS: Liver Length: 16.6 cm Gallbladder Wall: 0.2 cm CBD: Unable to visualize due to liver very difficult to penetrate Spleen: 7.8 cm Right Kidney: 10.1 x 5.6 x 5.2 cm Left Kidney: 9.5 x 5.7 x 5.3 cm DRAMA DIRECTOR NOTES: Pancreas: Obscured by bowel gas Liver: Very heterogeneous and difficult to penetrate with coarse echotexture. Gallbladder: Possible sludge Evidence for sonographic Elena's sign: No CBD: As above Spleen: wnl Right Kidney: Limited views show No evidence of hydro Left Kidney: Limited views show no evidence of hydro Upper IVC: unable to visualize due to liver very difficult to penetrate Abd Aorta: Obscured by overlying bowel gas The intrahepatic portion of the IVC and proximal abdominal aorta are within normal limits. There is no evidence of cholelithiasis. Common bile duct is unremarkable. The visualized portions of the williamson creas are homogenous. The spleen is unremarkable. Kidneys are symmetric and free of hydronephrosis. No renal lesions are seen. IMPRESSION: Somewhat limited study although no distinct abnormality appreciated. [facility], , 01/13/2025 2:28 PM
[2025-01-13] MEDS: SPIRONOLACTONE 25 MG TAB PO SCH (15:24)
[2025-01-13] MEDS: FUROSEMIDE 40 MG TAB PO SCH (15:24)
[2025-01-13] MEDS: IPRATROPIUM-ALBUTEROL 3 ML NEB INHALATION PRN (19:48)
[2025-01-13] MEDS: MELATONIN 5 MG TABLET PO SCH (22:24)
[2025-01-14 07:15] LABS: Anisocytosis Moderate; Basophils % (A) 0 %; Eosinophils # (A) 0.3 k/uL (0-0.7); Eosinophils % (A) 2 %; HCT 28.9 % (39.0-53.0); HGB 8.8 gm/dL (13.0-17.5); Hypochromasia Moderate; Lymphocytes # (A) 1.6 k/uL (1.0-4.8); Lymphocytes % (A) 12 %; MCH 35.4 pg (25.0-35.0); MCHC 30.4 g/dL (31.0-37.0); MCV 116.2 fL (80.0-100.0); Macrocytosis Marked; Mean Platelet Volume 10.5; Monocytes # (A) 0.7 k/uL (0-1.0); Monocytes % (A) 5 %; Neutrophils # (A) 10.9 k/uL (1.3-7.7); Neutrophils % (A) 79 %; Platelet Count 162 k/uL (150-450); RBC 2.49 m/uL (4.30-5.90); RDW 20.6 % (11.5-15.5); WBC 13.9 k/uL (3.8-10.6)
[2025-01-14 07:47] LABS: ALT 61 U/L (4-49); AST 197 U/L (17-59); African American GFR (CKD) 78 (>60 ml/min/1.73 sqM); Albumin 2.7 g/dL (3.5-5.0); Albumin/Globulin Ratio 0.7; Alkaline Phosphatase 185 U/L (38-126); Anion Gap 13 mmol/L; Blood Urea Nitrogen 28 mg/dL (9-20); Calcium 7.7 mg/dL (8.4-10.2); Carbon Dioxide 21 mmol/L (22-30); Chloride 101 mmol/L (98-107); Globulin 3.9 g/dL; Glucose 113 mg/dL (74-99); Magnesium 1.5 mg/dL (1.6-2.3); Non-African American GFR(CKD) 67 (>60 ml/min/1.73 sqM); Potassium 3.7 mmol/L (3.5-5.1); Sodium 135 mmol/L (137-145); Total Bilirubin 5.3 mg/dL (0.2-1.3); Total Protein 6.6 g/dL (6.3-8.2)
[2025-01-14] MEDS: METOPROLOL SUCCINATE (ER) 25 MG TAB.ER.24H PO SCH (09:16)
[2025-01-14 09:21] LABS: Hepatitis A Antibody IgM Nonreactive (Nonreactive); Hepatitis B Surface Antigen Nonreactive (Nonreactive); Hepatitis C IgG Antibody Reactive (Nonreactive)
[2025-01-14 09:36] LABS: % Iron Saturation 86.08 (15.00-50.00)
[2025-01-14 09:58] LABS: Hepatitis B Core IgM Nonreactive (Nonreactive)
--- NOTE | 2025-01-14 22:20 | P.PN ---
Subjective Progress Note Date: 01/14/25 Patient is a 61-year-old male with a history of hepatitis C, hypertension, liver cirrhosis presents to the ER with worsening weakness, fatigue and abdominal bloating for the last 2 months. Additionally, patient also endorses swelling in the both legs as well as decrease in appetite and has been feeling dizzy intermittently. Otherwise, he denies any chest pain, shortness of breath, loss of consciousness, fall, numbness tingling in upper or lower extremity. Patient denies diarrhea or constipation, no blood in the stool or tarry colored stool. Patient has no endoscopy done in the past. He does not follow-up with a gastroenterology or public health training assistant. Patient has no previous history of paracentesis. Of note, patient has been diagnosed with hepatitis C in the past for which he has undergone treatment. Patient is a chronic alcohol drinker. He has been drinking fifth a day for the last 40 years. His last drink was yesterday. Patient also chronic smoker as he smokes 1 pack/day for last 40 years. Initial laboratory evaluation in the ER shows WBC 13.0, hemoglobin 10.0, hematocrit 32.6, MCV 114.3, platelet count 202, PT 14.2, INR 1.3, APTT 26.9, sodium 136, potassium 3.7, chloride 100, BUN 27, creatinine 1.6, glucose 112, calcium 7.8, magnesium 1.4, total bili 5.3, AST 236, ALT 61, ALP 234, albumin 3.2 Subsequent lab work shows WBC 12.9, hemoglobin 9.2, sodium 135, potassium 4.1, BUN 25, creatinine 1.4, magnesium 1.3, total bili 4.6, AST 206, ALT 58, UA shows hyaline cast,. Chest x-ray shows no acute cardiopulmonary process. EKG shows supraventricular ventricular rate of 56 bpm, QRS duration of 78 ms, QTc 447 ms. Poor R wave progression noted. 01/14/2025 Patient is lying in the bed. Awake alert and oriented x 3. No complaints of chest pain or shortness of breath. Abdominal is distended. Denied any complaints of worsening pain. Patient has been afebrile. Blood pressure 113/76 pulse is 100 respiration 16 pulse ox 93% on room air. Patient is awaiting for IR guided paracentesis likely tomorrow. Continued on alcohol withdrawal protocol. Magnesium as per protocol is replaced. Laboratory data showed WBC 13.9 hemoglobin 8.8 and MCV 116.2 and platelets 162. Sodium 131 potassium 3.7 chloride 101 bicarb is 21 BUN 28 and creatinine 0-1.12 and blood sugar 113 and magnesium 1.5 total bili 5.3 AST 197 ALT 61 alk phos 185 and albumin 2.7. Current medications reviewed. Physical examination: Vital signs reviewed General: non toxic, no distress, appears at stated age, overweight Derm: no unusual rashes/lesions, warm Head: atraumatic, normocephalic, symmetric Eyes: EOMI, no lid lag, sclera icterus, pupils equal round reactive to light ENT: Nose and ears atraumatic Neck: No cervical lymphadenopathy, trachea midline, supple Mouth: no lip lesion, mucus membranes moist, oral thrush noted. Cardiovascular: S1S2 reg, no murmur, positive dorsalis pedis pulse bilateral, 2+ bilateral pitting edema Lungs: Bilateral expiratory wheezing, no rales or crackles, no accessory muscle use Abdominal: Distended, nontender, fluid wave shift positive, Ext: muscle strength 5 out of 5 in all 4 extremities grossly, no gross muscle atrophy, no contractures, Neuro: CN II-XI grossly intact, no gross focal neuro deficits Psych: Alert, oriented, appropriate affect Assessment/Plan: This is a Patient is a 61-year-old male with a history of hypertension, liver cirrhosis presents to the ER with worsening weakness, fatigue and abdominal bloating for the last 2 months. Case was discussed with the Emergency Room provider and decision was made to admit the patient for abdominal ascites. Labs and imaging: Initial laboratory evaluation in the ER shows WBC 13.0, hemoglobin 10.0, hem atocrit 32.6, MCV 114.3, platelet count 202, PT 14.2, INR 1.3, APTT 26.9, sodium 136, potassium 3.7, chloride 100, BUN 27, creatinine 1.6, glucose 112, calcium 7.8, magnesium 1.4, total bili 5.3, AST 236, ALT 61, ALP 234, albumin 3.2, NT proBNP 1230 Subsequent lab work shows WBC 12.9, hemoglobin 9.2, sodium 135, potassium 4.1, BUN 25, creatinine 1.4, magnesium 1.3, total bili 4.6, AST 206, ALT 58, UA shows hyaline cast,. Chest x-ray shows no acute cardiopulmonary process. EKG shows supraventricular ventricular rate of 56 bpm, QRS duration of 78 ms, QTc 447 ms. Poor R wave progression noted. Active: #Abdominal ascites likely secondary to alcoholic liver cirrhosis #Alcohol abuse disorder #Hypomagnesemia MELD score: 22 points with estimated 90-day mortality 7 to 10% Consult interventional radiology for paracentesis. Will send fluid for cell count with differential, albumin and culture. Order ascitic fluid analysis workup Consult gastroenterology Consider EGD Continue CIWA protocol Order thiamine 100 mg p.o. daily Order 2 g of IV magnesium Ultrasound abdomen showed very heterogeneous and difficult to penetrate with coarse echotexture of the liver. Gallbladder with possible sludge. No sonographic evidence of Elena sign. Order Lasix 40 mg p.o. once daily and spironolactone 50 mg p.o. once daily #Oral thrush Oral nystatin #Macrocytic anemia in setting of alcoholic liver cirrhosis B12 level 1352 and folate RBC is pending. Iron studies showed likely chronic disease. monitor CBC #Nonoliguric KEIRY on CKD in the setting of alcoholic liver cirrhosis, possible hepatorenal. Improving. Monitor CMP #COPD DuoNebs as scheduled and [id number] DVT prophylaxis: SCDs GI prophylaxis: IV Protonix 40 mg daily F: None E: Replete as needed N: Consistent carbohydrate diet A: Ambulatory The patient is admitted with an anticipated more than than 2 midnight stay for evaluation of cirrhotic liver disease CODE STATUS: Full code Discussed with: Patient Anticipated discharge place: Pending clinical course Dictation was produced using [employer] dictation software. Please excuse any grammatical, word or spelling errors. This is a history of Is under my recently with normal DM2 Objective - Vital Signs Vital signs: Vital Signs Temp 98.1 F 01/14/25 11:54 Pulse 101 H 01/14/25 11:54 Resp 16 01/14/25 11:54 BP 149/65 01/14/25 11:54 Pulse Ox 95 01/14/25 11:54 FiO2 Intake & Output 01/13/25 01/14/25 01/14/25 18:59 06:59 18:59 Intake Total 1800 590 240 Balance 1800 590 240 Intake: Oral 1800 590 240 Other: Voiding Method Toilet Toilet Toilet Bedside Commode Bedside Commode Bedside Commode # Voids 3 1 # Bowel Movements 3 - Labs CBC & Chem 7: 01/14/25 07:02 01/14/25 07:02 Labs: Abnormal Lab Results - Last 24 Hours (Table) 01/13/25 01/13/25 01/14/25 Range/Units 09:08 13:07 07:02 WBC 13.9 H (3.8-10.6) k/uL RBC 2.49 L (4.30-5.90) m/uL Hgb 8.8 L (13.0-17.5) gm/dL Hct 28.9 L (39.0-53.0) % MCV 116.2 H (80.0-100.0) fL MCH 35.4 H (25.0-35.0) pg MCHC 30.4 L (31.0-37.0) g/dL RDW 20.6 H (11.5-15.5) % Neutrophils # 10.9 H (1.3-7.7) k/uL Macrocytosis Marked A Sodium (137-145) mmol/L Carbon Dioxide (22-30) mmol/L BUN (9-20) mg/dL Glucose (74-99) mg/dL Calcium (8.4-10.2) mg/dL Magnesium (1.6-2.3) mg/dL TIBC 158 L (228-460) UG/DL % Saturation 86.08 H (15.00-50.00) Transferrin 113.0 L (204.0-354.0) mg/dL Ferritin 2954.0 H (22.0-322.0) ng/mL Total Bilirubin (0.2-1.3) mg/dL AST (17-59) U/L ALT (4-49) U/L Alkaline Phosphatase (38-126) U/L Albumin (3.5-5.0) g/dL Hep C IgG Ab Reactive A (Nonreactive) 01/14/25 Range/Units 07:02 WBC (3.8-10.6) k/uL RBC (4.30-5.90) m/uL Hgb (13.0-17.5) gm/dL Hct (39.0-53.0) % MCV (80.0-100.0) fL MCH (25.0-35.0) pg MCHC (31.0-37.0) g/dL RDW (11.5-15.5) % Neutrophils # (1.3-7.7) k/uL Macrocytosis Sodium 135 L (137-145) mmol/L Carbon Dioxide 21 L (22-30) mmol/L BUN 28 H (9-20) mg/dL Glucose 113 H (74-99) mg/dL Calcium 7.7 L (8.4-10.2) mg/dL Magnesium 1.5 L (1.6-2.3) mg/dL TIBC (228-460) UG/DL % Saturation (15.00-50.00) Transferrin (204.0-354.0) mg/dL Ferritin (22.0-322.0) ng/mL Total Bilirubin 5.3 H (0.2-1.3) mg/dL AST 197 H (17-59) U/L ALT 61 H (4-49) U/L Alkaline Phosphatase 185 H (38-126) U/L Albumin 2.7 L (3.5-5.0) g/dL Hep C IgG Ab (Nonreactive) Assessment and Plan Time with Patient: Greater than 30
[2025-01-14] MEDS: MAGNESIUM SULFATE-D5W PMX 1 GM in DEXTROSE/WATER 1 100ML.BAG IVPB SCH (22:27)
[2025-01-14] MEDS: POTASSIUM CHLORIDE ER 20 MEQ TAB.ER PO STA (22:27)
[2025-01-15 09:29] LABS: ALT 56 U/L (10-49); AST 167 U/L (14-35); Albumin 2.6 g/dL (3.8-4.9); Albumin/Globulin Ratio 0.72 Ratio (1.60-3.17); Alkaline Phosphatase 169 U/L (41-126); Blood Urea Nitrogen 19.5 mg/dL (9.0-27.0); Chloride 100 mmol/L (96-109); Globulin 3.6 g/dL (1.6-3.3); Glucose 110 mg/dL (70-110); Potassium 3.5 mmol/L (3.5-5.5); Sodium 137 mmol/L (135-145); Total Bilirubin 4.3 mg/dL (0.3-1.2); Total Protein 6.2 g/dL (6.2-8.2)
[2025-01-15 10:11] LABS: HCT 25.9 % (39.6-50.0); HGB 8.5 g/dL (13.0-17.0); MCHC 32.8 g/dL (32.0-37.0); MCV 109.7 FL (80.0-97.0); Mean Platelet Volume 12.4 FL (9.5-12.2); NRBC Per 100 WBC 0.08 X 10*3/uL (0.00-0.01); Platelet Count 140 X 10*3/uL (140-440); RBC 2.36 X 10*6/uL (4.40-5.60); RDW 22.9 % (11.5-14.5); WBC 13.49 X 10*3/uL (4.50-10.00)
[2025-01-15 11:38] LABS: Basophils # (A) 0.05 X 10*3/uL (0.00-0.10); Basophils % (A) 0.4 %; Eosinophils # (A) 0.38 X 10*3/uL (0.04-0.35); Eosinophils % (A) 2.8 %; Lymphocytes # (A) 1.93 X 10*3/uL (0.90-5.00); Lymphocytes % (A) 14.3 %; Macrocytosis (M) 3+ (None Seen); Monocytes # (A) 1.52 X 10*3/uL (0.20-1.00); Monocytes % (A) 11.3 %; Neutrophils # (A) 9.56 X 10*3/uL (1.80-7.70); Neutrophils % (A) 70.8 %; Target Cells 3+ (None Seen)
[2025-01-15 12:51] LABS: INR 1.43 sec (0.93-1.11); Prothrombin Time 15.6 sec (9.9-11.9)
--- NOTE | 2025-01-15 16:32 | P.PN ---
Subjective Progress Note Date: 01/15/25 Hospital course: Patient is a 61-year-old male with a history of hepatitis C, hypertension, liver cirrhosis presents to the ER with worsening weakness, fatigue and abdominal bloating for the last 2 months. Additionally, patient also endorses swelling in the both legs as well as decrease in appetite and has been feeling dizzy intermittently. Otherwise, he denies any chest pain, shortness of breath, loss of consciousness, fall, numbness tingling in upper or lower extremity. Patient denies diarrhea or constipation, no blood in the stool or tarry colored stool. Patient has no endoscopy done in the past. He does not follow-up with a gastroenterology or gis developer. Patient has no previous history of paracentesis. Of note, patient has been diagnosed with hepatitis C in the past for which he hicks s undergone treatment. Patient is a chronic alcohol drinker. He has been drinking fifth a day for the last 40 years. His last drink was yesterday. Patient also chronic smoker as he smokes 1 pack/day for last 40 years. Initial laboratory evaluation in the ER shows WBC 13.0, hemoglobin 10.0, hem atocrit 32.6, MCV 114.3, platelet count 202, PT 14.2, INR 1.3, APTT 26.9, sodium 136, potassium 3.7, chloride 100, BUN 27, creatinine 1.6, glucose 112, calcium 7.8, magnesium 1.4, total bili 5.3, AST 236, ALT 61, ALP 234, albumin 3.2 Subsequent lab work shows WBC 12.9, hemoglobin 9.2, sodium 135, potassium 4.1, BUN 25, creatinine 1.4, magnesium 1.3, total bili 4.6, AST 206, ALT 58, UA shows hyaline cast,. Chest x-ray shows no acute cardiopulmonary process. EKG shows supraventricular ventricular rate of 56 bpm, QRS duration of 78 ms, QTc 447 ms. Poor R wave progression noted. 01/14/2025 Patient is lying in the bed. Awake alert and oriented x 3. No complaints of chest pain or shortness of breath. Abdominal is distended. Denied any complaints of worsening pain. Patient has been afebrile. Blood pressure 113/76 pulse is 100 respiration 16 pulse ox 93% on room air. Patient is awaiting for IR guided paracentesis likely tomorrow. Continued on alcohol withdrawal protocol. Magnesium as per protocol is replaced. Laboratory data showed WBC 13.9 hemoglobin 8.8 and MCV 116.2 and platelets 162. Sodium 131 potassium 3.7 chloride 101 bicarb is 21 BUN 28 and creatinine 0-1.12 and blood sugar 113 and magnesium 1.5 total bili 5.3 AST 197 ALT 61 alk phos 185 and albumin 2.7. 01/15/2025 Patient seen and examined at the bedside. Not complaining of any chest pain, shortness of breath, abdominal pain. He has been afebrile. Patient is awaiting for IR guided paracentesis likely today. Current medications reviewed. Physical examination: Vital signs reviewed General: non toxic, no distress, appears at stated age, overweight Derm: no unusual rashes/lesions, warm Head: atraumatic, normocephalic, symmetric Eyes: EOMI, no lid lag, sclera icterus, pupils equal round reactive to light ENT: Nose and ears atraumatic Neck: No cervical lymphadenopathy, trachea midline, supple Mouth: no lip lesion, mucus membranes moist, oral thrush noted. Cardiovascular: S1S2 reg, no murmur, positive dorsalis pedis pulse bilateral, 2+ bilateral pitting edema Lungs: Bilateral mild expiratory wheezing, no rales or crackles, no accessory muscle use Abdominal: Distended, nontender, fluid wave shift positive, Ext: muscle strength 5 out of 5 in all 4 extremities grossly, no gross muscle atrophy, no contractures, Neuro: CN II-XI grossly intact, no gross focal neuro deficits Psych: Alert, oriented, appropriate affect Assessment/Plan: This is a Patient is a 61-year-old male with a history of hypertension, liver cirrhosis presents to the ER with worsening weakness, fatigue and abdominal bloating for the last 2 months. Case was discussed with the Emergency Room provider and decision was made to admit the patient for abdominal ascites. Labs and imaging: WBC 13.4, hemoglobin 8.5, MCV 109.7, sodium 137, potassium 3.5, BUN 19.5, creatinine 1.0, AST 167, ALT 56, ALP 169, albumin 2.6, hepatitis C IgG antibody positive No new imaging today Active: #Abdominal ascites likely secondary to alcoholic liver cirrhosis #Alcohol abuse disorder #Hypomagnesemia MELD score: 22 points with estimated 90-day mortality 7 to 10% Interventional radiology for paracentesis has been consulted. Likely paracentesis today. Will send fluid for cell count with differential, albumin and culture. Order ascitic fluid analysis workup Continue CIWA protocol Order thiamine 100 mg p.o. daily Order 2 g of IV magnesium Ultrasound abdomen showed very heterogeneous and difficult to penetrate with coarse echotexture of the liver. Gallbladder with possible sludge. No sonographic evidence of Elena sign. Order Lasix 40 mg p.o. once daily and spironolactone 50 mg p.o. once daily #Oral thrush Continue with oral nystatin #Macrocytic anemia in setting of alcoholic liver cirrhosis B12 level 1352 and folate RBC is pending. Iron studies showed likely chronic disease. monitor CBC #Nonoliguric KEIRY on CKD in the setting of alcoholic liver cirrhosis, possible hepatorenal. Improved Monitor CMP #COPD DuoNebs as scheduled and [id number] DVT prophylaxis: SCDs GI prophylaxis: IV Protonix 40 mg daily F: None E: Replete as needed N: Consistent carbohydrate diet A: Ambulatory The patient is admitted with an anticipated more than than 2 midnight stay for evaluation of cirrhotic liver disease CODE STATUS: Full code Discussed with: Patient Anticipated discharge place: Pending clinical course Dictation was produced using [employer] dictation software. Please excuse any grammatical, word or spelling errors. Attestation: I have personally seen and examined the patient with Resident, reviewed the documentation and participated and agree with the assessment and plan as written. Michele Chino MD Objective - Vital Signs Vital signs: Vital Signs Temp 97.4 F L 01/15/25 07:52 Pulse 82 01/15/25 09:54 Resp 18 01/15/25 07:52 BP 100/67 01/15/25 09:54 Pulse Ox 93 L 01/15/25 07:52 FiO2 Intake & Output 01/14/25 01/15/25 01/15/25 18:59 06:59 18:59 Intake Total 1800 590 Output Total 3 Balance 1800 587 Intake: Oral 1800 590 Output: Stool 3 Other: Voiding Method Toilet Toilet Bedside Commode Bedside Commode # Voids 5 3 # Bowel Movements 5 - Labs CBC & Chem 7: 01/15/25 04:33 01/15/25 04:33 Labs: Abnormal Lab Results - Last 24 Hours (Table) 03/31/25 03/31/25 Range/Units 04:33 04:33 WBC 13.49 H (4.50-10.00) X 10*3/uL RBC 2.36 L (4.40-5.60) X 10*6/uL Hgb 8.5 L (13.0-17.0) g/dL Hct 25.9 L (39.6-50.0) % MCV 109.7 H (80.0-97.0) FL MCH 36.0 H (27.0-32.0) pg RDW 22.9 H (11.5-14.5) % MPV 12.4 H (9.5-12.2) FL Immature Gran # 0.05 H (0.00-0.04) X 10*3/uL Neutrophils # 9.56 H (1.80-7.70) X 10*3/uL Monocytes # 1.52 H (0.20-1.00) X 10*3/uL Eosinophils # 0.38 H (0.04-0.35) X 10*3/uL NRBC/100 WBC Diff 0.08 H (0.00-0.01) X 10*3/uL Macrocytosis (manual) 3+ A (None Seen) Target Cells 3+ A (None Seen) Calcium 8.0 L (8.7-10.3) mg/dL Total Bilirubin 4.3 H (0.3-1.2) mg/dL AST 167 H (14-35) U/L ALT 56 H (10-49) U/L Alkaline Phosphatase 169 H (41-126) U/L Albumin 2.6 L (3.8-4.9) g/dL Globulin 3.6 H (1.6-3.3) g/dL Albumin/Globulin Ratio 0.72 L (1.60-3.17) Ratio
[2025-01-16 08:25] LABS: Basophils # (A) 0.04 X 10*3/uL (0.00-0.10); Basophils % (A) 0.3 %; Eosinophils # (A) 0.37 X 10*3/uL (0.04-0.35); Eosinophils % (A) 3.2 %; HCT 27.1 % (39.6-50.0); HGB 9.2 g/dL (13.0-17.0); Lymphocytes % (A) 15.4 %; MCH 36.7 pg (27.0-32.0); MCHC 33.9 g/dL (32.0-37.0); Mean Platelet Volume 13.3 FL (9.5-12.2); Monocytes # (A) 1.42 X 10*3/uL (0.20-1.00); Monocytes % (A) 12.1 %; NRBC Per 100 WBC 0.04 X 10*3/uL (0.00-0.01); Neutrophils # (A) 8.05 X 10*3/uL (1.80-7.70); Neutrophils % (A) 68.7 %; Platelet Count 140 X 10*3/uL (140-440); RBC 2.51 X 10*6/uL (4.40-5.60); RDW 23.5 % (11.5-14.5); WBC 11.72 X 10*3/uL (4.50-10.00)
[2025-01-16 08:43] LABS: Magnesium 1.2 mg/dL (1.5-2.4)
[2025-01-16 08:47] LABS: BUN/Creat Ratio 17.44 Ratio (12.00-20.00); Blood Urea Nitrogen 15.7 mg/dL (9.0-27.0); Calcium 8.1 mg/dL (8.7-10.3); Carbon Dioxide 26.5 mmol/L (21.6-31.8); Chloride 98 mmol/L (96-109); Glucose 103 mg/dL (70-110); Potassium 3.5 mmol/L (3.5-5.5); Sodium 136 mmol/L (135-145)
[2025-01-16] MEDS: MAGNESIUM SULFATE-D5W PMX 1 GM in DEXTROSE/WATER 1 100ML.BAG IVPB SCH (13:06)
[2025-01-16] MEDS: DOCUSATE 100 MG CAP PO SCH (16:36)
[2025-01-16] MEDS: LACTULOSE 20 GM/30 ML CUP PO SCH (16:36)
--- NOTE | 2025-01-16 17:01 | P.PN ---
Subjective Progress Note Date: 01/16/25 Hospital course: Patient is a 61-year-old male with a history of hepatitis C, hypertension, liver cirrhosis presents to the ER with worsening weakness, fatigue and abdominal bloating for the last 2 months. Additionally, patient also endorses swelling in the both legs as well as decrease in appetite and has been feeling dizzy intermittently. Otherwise, he denies any chest pain, shortness of breath, loss of consciousness, fall, numbness tingling in upper or lower extremity. Patient denies diarrhea or constipation, no blood in the stool or tarry colored stool. Patient has no endoscopy done in the past. He does not follow-up with a gastroenterology or land surveyor manager. Patient has no previous history of paracentesis. Of note, patient has been diagnosed with hepatitis C in the past for which he hicks s undergone treatment. Patient is a chronic alcohol drinker. He has been drinking fifth a day for the last 40 years. His last drink was yesterday. Patient also chronic smoker as he smokes 1 pack/day for last 40 years. Initial laboratory evaluation in the ER shows WBC 13.0, hemoglobin 10.0, hem atocrit 32.6, MCV 114.3, platelet count 202, PT 14.2, INR 1.3, APTT 26.9, sodium 136, potassium 3.7, chloride 100, BUN 27, creatinine 1.6, glucose 112, calcium 7.8, magnesium 1.4, total bili 5.3, AST 236, ALT 61, ALP 234, albumin 3.2 Subsequent lab work shows WBC 12.9, hemoglobin 9.2, sodium 135, potassium 4.1, BUN 25, creatinine 1.4, magnesium 1.3, total bili 4.6, AST 206, ALT 58, UA shows hyaline cast,. Chest x-ray shows no acute cardiopulmonary process. EKG shows supraventricular ventricular rate of 56 bpm, QRS duration of 78 ms, QTc 447 ms. Poor R wave progression noted. 01/14/2025 Patient is lying in the bed. Awake alert and oriented x 3. No complaints of chest pain or shortness of breath. Abdominal is distended. Denied any complaints of worsening pain. Patient has been afebrile. Blood pressure 113/76 pulse is 100 respiration 16 pulse ox 93% on room air. Patient is awaiting for IR guided paracentesis likely tomorrow. Continued on alcohol withdrawal protocol. Magnesium as per protocol is replaced. Laboratory data showed WBC 13.9 hemoglobin 8.8 and MCV 116.2 and platelets 162. Sodium 131 potassium 3.7 chloride 101 bicarb is 21 BUN 28 and creatinine 0-1.12 and blood sugar 113 and magnesium 1.5 total bili 5.3 AST 197 ALT 61 alk phos 185 and albumin 2.7. 01/15/2025 Patient seen and examined at the bedside. Not complaining of any chest pain, shortness of breath, abdominal pain. He has been afebrile. Patient is awaiting for IR guided paracentesis likely today. 01/16/2025 Patient seen and examined at the bedside. Patient has bowel movements yesterday and this morning. He has been afebrile. Not complaining of any chest pain, shortness of breath or abdominal pain. Interventional radiology will not be pursuing paracentesis since there is no ascitic fluid present abdomen. Current medications reviewed. Physical examination: Vital signs reviewed General: non toxic, no distress, appears at stated age, overweight Derm: no unusual rashes/lesions, warm Head: atraumatic, normocephalic, symmetric Eyes: EOMI, no lid lag, sclera icterus, pupils equal round reactive to light ENT: Nose and ears atraumatic Neck: No cervical lymphadenopathy, trachea midline, supple Mouth: no lip lesion, mucus membranes moist, oral thrush noted. Cardiovascular: S1S2 reg, no murmur, positive dorsalis pedis pulse bilateral, 2+ bilateral pitting edema Lungs: Bilateral mild expiratory wheezing, no rales or crackles, no accessory muscle use Abdominal: Distended, nontender, fluid wave shift positive, Ext: muscle strength 5 out of 5 in all 4 extremities grossly, no gross muscle a trophy, no contractures, Neuro: CN II-XI grossly intact, no gross focal neuro deficits Psych: Alert, oriented, appropriate affect Assessment/Plan: This is a Patient is a 61-year-old male with a history of hypertension, liver cirrhosis presents to the ER with worsening weakness, fatigue and abdominal bloating for the last 2 months. Case was discussed with the Emergency Room provider and decision was made to admit the patient for abdominal ascites. Labs and imaging: WBC 13.4, hemoglobin 8.5, MCV 109.7, sodium 137, potassium 3.5, BUN 19.5, creatinine 1.0, AST 167, ALT 56, ALP 169, albumin 2.6, hepatitis C IgG antibody positive No new imaging today Active: #Abdominal ascites likely secondary to alcoholic liver cirrhosis #Alcohol abuse disorder #Hypomagnesemia MELD score: 22 points with estimated 90-day mortality 7 to 10% Interventional radiology for paracentesis has been consulted. Likely paracentesis today. Will send fluid for cell count with differential, albumin and culture. Order ascitic fluid analysis workup Continue CIWA protocol Continue thiamine 100 mg p.o. daily Order 2 g of IV magnesium Ultrasound abdomen showed very heterogeneous and difficult to penetrate with coarse echotexture of the liver. Gallbladder with possible sludge. No sonographic evidence of Elena sign. Continue with Lasix 40 mg p.o. once daily and spironolactone 50 mg p.o. once daily Order lactulose 20 mg once daily Order CT abdomen with IV contrast to rule out SBO #Oral thrush Continue with oral nystatin #Macrocytic anemia in setting of alcoholic liver cirrhosis B12 level 1352 and folate RBC is pending. Iron studies showed likely chronic disease. monitor CBC #Nonoliguric KEIRY on CKD in the setting of alcoholic liver cirrhosis, possible hepatorenal. Improved Monitor CMP #COPD DuoNebs as scheduled and [id number] DVT prophylaxis: SCDs GI prophylaxis: Protonix 40 mg daily F: None E: Replete as needed N: Consistent carbohydrate diet A: Ambulatory The patient is admitted with an anticipated more than than 2 midnight stay for evaluation of cirrhotic liver disease CODE STATUS: Full code Discussed with: Patient Anticipated discharge place: Pending clinical course Dictation was produced using [employer] dictation software. Please excuse any grammatical, word or spelling errors. Attestation: I have personally seen and examined the patient with Resident, reviewed the documentation and participated and agree with the assessment and plan as written. Michele Chino MD Objective - Vital Signs Vital signs: Vital Signs Temp 97.7 F 01/16/25 13:17 Pulse 72 01/16/25 13:17 Resp 17 01/16/25 13:17 BP 116/77 01/16/25 13:17 Pulse Ox 95 01/16/25 13:17 FiO2 Intake & Output 01/15/25 01/16/25 01/16/25 18:59 06:59 18:59 Intake Total 780 540 Balance 780 540 Intake: Oral 780 540 Other: Voiding Method Toilet Toilet Toilet Bedside Commode Bedside Commode Bedside Commode # Voids 3 5 # Bowel Movements 2 2 - Labs CBC & Chem 7: 01/17/25 04:41 01/17/25 04:41 Labs: Abnormal Lab Results - Last 24 Hours (Table) 01/16/25 01/16/25 Range/Units 05:20 05:20 WBC 11.72 H (4.50-10.00) X 10*3/uL RBC 2.51 L (4.40-5.60) X 10*6/uL Hgb 9.2 L (13.0-17.0) g/dL Hct 27.1 L (39.6-50.0) % MCV 108.0 H (80.0-97.0) FL MCH 36.7 H (27.0-32.0) pg RDW 23.5 H (11.5-14.5) % MPV 13.3 H (9.5-12.2) FL Neutrophils # 8.05 H (1.80-7.70) X 10*3/uL Monocytes # 1.42 H (0.20-1.00) X 10*3/uL Eosinophils # 0.37 H (0.04-0.35) X 10*3/uL NRBC/100 WBC Diff 0.04 H (0.00-0.01) X 10*3/uL Calcium 8.1 L (8.7-10.3) mg/dL Magnesium 1.2 L (1.5-2.4) mg/dL
[2025-01-16] MEDS: IOPAMIDOL CONTRAST (ORAL USE) VIAL PO PRN (17:59)
--- NOTE | 2025-01-16 19:15 | CT ---
EXAMINATION TYPE: CT abdomen w con DATE OF EXAM: 01/16/2025 6:54 PM COMPARISON: CT abdomen pelvis most recent from 07/02/2022. CLINICAL INDICATION: Male, 69 years old with history of Abdominal pain and distention, rule out SBO; abdominal pain and distention TECHNIQUE: Axial CT abdomen w con;Sagittal and coronal reformats were created on a separate workstat ion. Contrast used:100ml mL of Isovue 300 with IV Contrast, (none if empty) Oral contrast used: with Oral Contrast (none if empty) CT DLP: 1819.9 mGycm, Automated exposure control for dose reduction was used. FINDINGS: LOWER CHEST: Unremarkable ABDOMEN LIVER: Heterogenous with low attenuation. Nodular contour to liver. GALLBLADDER AND BILE DUCTS: Unremarkable. PANCREAS: Unremarkable. SPLEEN: Unremarkable. ADRENAL GLANDS: Unremarkable. KIDNEYS AND URETERS: No evidence of hydronephrosis or renal calculus. The ureters are unremarkable. PELVIS BLADDER: No evidence for wall thickening or mass given limitations of exam. REPRODUCTIVE: Unremarkable. ABDOMEN & PELVIS STOMACH AND BOWEL: No evidence of bowel obstruction. No evidence for small bowel obstruction. PERITONEUM/RETROPERITONEUM: No evidence of pneumoperitoneum. Small moderate ascites. VASCULATURE: Moderate atherosclerotic calcifications are present throughout the abdominal aorta and i ts branches. No evidence of aortic aneurysm. MUSCULOSKELETAL: No acute osseous abnormalities LYMPH NODES: No gross evidence for lymphadenopathy. SOFT TISSUE/ABDOMINAL WALL: Unremarkable IMPRESSION: 1. No evidence for small bowel obstruction. The abdomen is only visualized due to CTA abdomen ordere d. 2. Nodular contour to liver with hepatic steatosis. 3. Small to moderate ascites present. [facility], , 01/16/2025 7:12 PM
[2025-01-17 07:56] VITALS: BP 109/68
[2025-01-17 08:23] LABS: Basophils # (A) 0.05 X 10*3/uL (0.00-0.10); Basophils % (A) 0.4 %; Eosinophils # (A) 0.38 X 10*3/uL (0.04-0.35); Eosinophils % (A) 3.4 %; HCT 28.9 % (39.6-50.0); HGB 9.8 g/dL (13.0-17.0); Lymphocytes # (A) 2.12 X 10*3/uL (0.90-5.00); Lymphocytes % (A) 18.8 %; MCH 37.1 pg (27.0-32.0); MCHC 33.9 g/dL (32.0-37.0); MCV 109.5 FL (80.0-97.0); Monocytes # (A) 1.56 X 10*3/uL (0.20-1.00); Monocytes % (A) 13.8 %; NRBC Per 100 WBC 0 X 10*3/uL (0.00-0.01); Neutrophils # (A) 7.12 X 10*3/uL (1.80-7.70); Neutrophils % (A) 63.2 %; Platelet Count 141 X 10*3/uL (140-440); RBC 2.64 X 10*6/uL (4.40-5.60); RDW 23.9 % (11.5-14.5); WBC 11.27 X 10*3/uL (4.50-10.00)
[2025-01-17 08:32] LABS: Magnesium 1.6 mg/dL (1.5-2.4)
[2025-01-17 08:33] LABS: Blood Urea Nitrogen 12.8 mg/dL (9.0-27.0); Calcium 8.3 mg/dL (8.7-10.3); Carbon Dioxide 28.8 mmol/L (21.6-31.8); Chloride 98 mmol/L (96-109); Glucose 103 mg/dL (70-110); Potassium 3.6 mmol/L (3.5-5.5); Sodium 138 mmol/L (135-145)
[2025-01-17 12:49] VITALS: PULSE 77; RESP 18; TEMP 98
--- NOTE | 2025-01-17 15:08 | P.DS ---
Providers Date of admission: 01/12/25 20:12 Attending physician: Rehana Dobbins Primary care physician: Guido Mark [facility] Course: Discharge Diagnosis: #Abdominal ascites likely secondary to alcohol liver cirrhosis # Alcohol abuse disorder #Hypomagnesemia, resolved #Oral candidiasis, resolved #Nonoliguric KEIRY on CKD in the setting of alcoholic liver cirrhosis, possible hepatorenal, improved #COPD not in exacerbation #Macrocytic anemia in setting of alcoholic liver cirrhosis Hospital course: Patient is a 61-year-old male with a history of hepatitis C, hypertension, liver cirrhosis presents to the ER with worsening weakness, fatigue and abdominal bloating for the last 2 months. Additionally, patient also endorses swelling in the both legs as well as decrease in appetite and has been feeling dizzy intermittently. Otherwise, he denies any chest pain, shortness of breath, loss of consciousness, fall, numbness tingling in upper or lower extremity. Patient denies diarrhea or constipation, no blood in the stool or tarry colored stool. Patient has no endoscopy done in the past. 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 Patient has no previous history of paracentesis. Of note, patient has been diagnosed with hepatitis C in the past for which he has undergone treatment. Patient is a chronic alcohol drinker. He has been drinking fifth a day for the last 40 years. His last drink was yesterday. Patient also chronic smoker as he smokes 1 pack/day for last 40 years. Initial laboratory evaluation in the ER shows WBC 13.0, hemoglobin 10.0, hematocrit 32.6, MCV 114.3, platelet count 202, PT 14.2, INR 1.3, APTT 26.9, sodium 136, potassium 3.7, chloride 100, BUN 27, creatinine 1.6, glucose 112, calcium 7.8, magnesium 1.4, total bili 5.3, AST 236, ALT 61, ALP 234, albumin 3.2 Subsequent lab work shows WBC 12.9, hemoglobin 9.2, sodium 135, potassium 4.1, BUN 25, creatinine 1.4, magnesium 1.3, total bili 4.6, AST 206, ALT 58, UA shows hyaline cast. Chest x-ray shows no acute cardiopulmonary process. EKG shows supraventricular ventricular rate of 56 bpm, QRS duration of 78 ms, QTc 447 ms. Poor R wave progression noted. Paracentesis procedure was not performed by interventional radiology as no fluid was detected based on abdominal ultrasound. CAT scan of the abdomen was also performed and no evidence of small bowel obstruction was identified with small to moderate ascites. White cell counts continue to trend down. Abdominal pain and distention has improved. Patient is having regular bowel movements. Patient is otherwise hemodynamically stable and medically optimized for discharge. Patient is discharged on lactulose, spironolactone, and Lasix. Patient is going to follow-up with PCP and gastroenterology within 1 to 2 weeks. Discharge disposition: Home with self-care Physical examination: Vital signs reviewed General: non toxic, no distress, appears at stated age, overweight Derm: no unusual rashes/lesions, warm Head: atraumatic, normocephalic, symmetric Eyes: EOMI, no lid lag, sclera icterus, pupils equal round reactive to light ENT: Nose and ears atraumatic Neck: No cervical lymphadenopathy, trachea midline, supple Mouth: no lip lesion, mucus membranes moist, Cardiovascular: S1S2 reg, no murmur, positive dorsalis pedis pulse bilateral, 2+ bilateral pitting edema Lungs: CTAB, no rales or crackles, no accessory muscle use Abdominal: Mildly distended, nontender, bowel sounds positive Ext: muscle strength 5 out of 5 in all 4 extremities grossly, no gross muscle atrophy, no contractures, Neuro: CN II-XI grossly intact, no gross focal neuro deficits Psych: Alert, oriented, appropriate affect Dictation was produced using [employer] dictation software. Please excuse any grammatical, word or spelling errors. Attestation: I have personally seen and examined the patient with Resident, reviewed the documentation and participated and agree with the assessment and plan as written. Michele Chino MD Patient Condition at Discharge: Stable Plan - Discharge Summary Discharge Rx Participant: No New Discharge Prescriptions: New Spironolactone [Aldactone] 50 mg PO DAILY #30 tab Lactulose [Cephulac] 20 gm PO DAILY #14 ml Furosemide [Lasix] 40 mg PO DAILY #30 tab Nystatin 100,000 Unit/ml Susp [Mycostatin Oral Susp] 5 ml PO QID #40 ml Continue Metoprolol Succinate (ER) [Toprol XL] 25 mg PO DAILY #30 tab amLODIPine BESYLATE/BENAZEPRIL [Lotrel 10-20 mg Capsule] 1 cap PO DAILY Discharge Medication List amLODIPine BESYLATE/BENAZEPRIL [Lotrel 10-20 mg Capsule] 1 cap PO DAILY 07/13/22 [History] Metoprolol Succinate (ER) [Toprol XL] 25 mg PO DAILY #30 tab 08/18/22 [Rx] Furosemide [Lasix] 40 mg PO DAILY #30 tab 01/17/25 [Rx] Lactulose [Cephulac] 20 gm PO DAILY #14 ml 01/17/25 [Rx] Nystatin 100,000 Unit/ml Susp [Mycostatin Oral Susp] 5 ml PO QID #40 ml 01/17/25 [Rx] Spironolactone [Aldactone] 50 mg PO DAILY #30 tab 01/17/25 [Rx] Follow up Appointment(s)/Referral(s): Mariam Lakhani MD [STAFF PHYSICIAN] - 02/07/25 2:00 pm (please bring your picture id and insurance card with you to appointment. ) Guido Flores DO [Primary Care Provider] - 01/29/25 10:20 am (appointment with Dr. Ly) Patient Instructions/Handouts: Cirrhosis (DC) Activity/Diet/Wound Care/Special Instructions: Please follow-up with your PCP and gastroenterology within 1 to 2 weeks. Discharge Disposition: HOME SELF-CARE
== END 2025-01-17 17:23 | disposition home or self-care (01) ==
LOC: EC 15:21 → 5NMEDONC 20:12 → INTOOBSV 20:12 → 5NMEDONC 21:13
PROVIDERS: ADMIT Hospitalist; ATTEND Hospitalist
DX: K70.31 Alcoholic cirrhosis of liver with ascites (principal); F10.10 Alcohol abuse, uncomplicated; E83.42 Hypomagnesemia; B37.0 Candidal stomatitis; N17.9 Acute kidney failure, unspecified; I12.9 Hypertensive chronic kidney disease with stage 1 through stage 4 chronic kidney disease, or unspecified chronic kidney disease; E11.22 Type 2 diabetes mellitus with diabetic chronic kidney disease; N18.9 Chronic kidney disease, unspecified; D53.9 Nutritional anemia, unspecified; F17.210 Nicotine dependence, cigarettes, uncomplicated; J44.9 Chronic obstructive pulmonary disease, unspecified; Z79.899 Other long term (current) drug therapy; Z86.19 Personal history of other infectious and parasitic diseases
CPT/HCPCS: 96376 ×4; 96361; 96365; 96366 ×3; 96375; 99285; 36415; 94640; 93005; 97530; 92610; 82747; 83880; 80053 ×4; 80048 ×2; 80074; 82607; 82728; 83540; 83550; 83735 ×5; 84100; 84484; 85025 ×6; 85610 ×2; 85730; 81001; 87324; 87636; 71046; 76700; 74160; G0378 ×6; J3475 ×3; Q9967; J2470 ×5